=== PATIENT | male | born 1940 | race Caucasian/White ===

== ENCOUNTER → 2016-10-05 | Outpatient (CLI) | payer OTHER | LOC: MMPC 11:11 | PROVIDERS: ATTEND Nurse Practitioner | DX: J44.9 Chronic obstructive pulmonary disease, unspecified (principal); R53.83 Other fatigue; R63.4 Abnormal weight loss; K13.79 Other lesions of oral mucosa; I25.5 Ischemic cardiomyopathy | CPT/HCPCS: 99214 ==

== ENCOUNTER → 2016-10-11 | Outpatient (CLI) | payer OTHER ==
--- NOTE | 2016-10-11 12:58 | DI ---
PA /LATERAL CHEST X-RAY, 10/11/2016 11:26 AM : Clinical History: End-stage chronic obstructive pulmonary disease. Previous Exam: 02/04/2015. There is no acute soft tissue or bony abnormality, but the patient has lost weight since the previous exam and appears quite cachectic. Heart size is normal. The patient has a dual-chamber pacemaker and leads are in the appropriate position. A vascular stent is present in the territory of the LAD. Sinc e the previous exam, the patient has developed complete atelectasis of the basilar segments of the le ft lower lobe and probable atelectasis of the lingular segment, and with compensatory hyperinflation of the left upper lobe. There is a new patchy infiltrate in the left midlung field posteriorly and bi laterally and this may represent a pneumonia involving the superior segment of the left lower lobe. T here is also atelectasis of the right upper lobe primarily in the area of the posterior segment and p ossibly also the apex. There is compensatory hyperinflation of the right lower lobe and right middle lobe. Pleural scarring has developed at the site of the right upper lobe atelectasis. There is pulmon radha arterial hypertension. Septae are present in the left upper lobe and this patient has bullae. Readin. Bullous emphysema with atelectasis of the basilar segments of the left lower lobe with probable p neumonia involving the superior segment of the left lower lobe. There is compensatory hyperinflation of the left upper lobe with evidence of bullae. 2. The patient has developed right upper lobe atelectasis with pleural scarring laterally in the upp er lung field. There is compensatory hyperinflation of the right middle lobe and right lower lobe. 3. Pulmonary arterial hypertension and coronary artery disease. There is marked cachexia.
== END ==
LOC: RAD 11:19
PROVIDERS: ATTEND Nurse Practitioner
DX: J44.9 Chronic obstructive pulmonary disease, unspecified (principal); R06.00 Dyspnea, unspecified; I27.2 Other secondary pulmonary hypertension; I25.10 Atherosclerotic heart disease of native coronary artery without angina pectoris; F17.210 Nicotine dependence, cigarettes, uncomplicated
CPT/HCPCS: 71020

== ENCOUNTER 2016-10-28 23:00 | Inpatient (IN) | payer OTHER ==
--- NOTE | 2016-10-28 23:10 | PDOC ---
Gen Adult / Medical Screen HPI - General Chief Complaint: General Medical Stated Complaint: low SPO2 Date Seen by Provider: 10/28/16 Time Seen by Provider: 23:10 Source: POSITIVE: Patient, EMS Exam Limitations: POSITIVE: No limitations Nurse's Notes Reviewed & Considered: Yes - Indicators Temperature Between 95 and 101 Degrees: Yes Respirations Between 12 and 20: No (28) Blood Pressure Between 100-165 (sys) and 60-100 (evans): No (91/59) Severe Pain (Greater than 5/10 Reported): No Chest or Abdominal Pain: Yes (pain associated with pacer on L chest.) Inability to Walk: Yes (weak and unsteady) Pt Reports Active High Risk Cond. (TB/Hepatitis/HIV/Chemo): No Abnormal Mental Status: No - History of Present Illness Initial Comments: Patient called for EMS because of not feeling well and short of breath. The ambulance arrived and his oxygenation to be 67%, baseline oxygen is 4 L, and he was started on nonrebreather when EMS arrived. EMS states they found him to be tripoding in order to move air. He is complaining of left-sided abdominal pain and left-sided chest pain predominantly the chest pain is located under his pacemaker. He's been coughing for approximately 2 weeks with blood-tinged sputum. He was found to be febrile with a temperature of 99.2. He was tachycardic and tachypneic with hypotension. Presently his tachycardia has resolved. Patient is unable to speak in full sentences. Body Location Affected: REPORTS: Chest Timing: REPORTS: Constant, Getting Worse Duration: Unknown Similar Symptoms Previously: Yes Any Prior Injuries Related to Current Complaint?: No - Patient Home Medications Home Medications: Home Medications Aspirin 650 mg PO DAILY #60 tablet 01/13/15 Lidocaine HCl [Lidocaine Hcl Viscous] 15 ml PO QID PRN #100 ml 08/06/15 Albuterol Sulfate 2.5 mg [facility] RTQID #120 vial.neb 08/18/16 Amiodarone HCl [Pacerone] 200 mg PO DAILY #30 tablet 08/18/16 Atorvastatin Calcium [Lipitor] 40 mg PO BEDTIME #30 tablet 08/18/16 Escitalopram Oxalate [Lexapro] 10 mg PO EVERY AM #30 tablet 08/18/16 Fluticasone Propionate [Flonase Allergy Relief] 2 spr ARAVIND QD #1 spr 08/18/16 Fluticasone/Vilanterol [Breo Ellipta 200-25 Mcg Inh] 1 each IH QD #1 inhaler Losartan Potassium 0.5 tab PO QD #45 tab 08/18/16 Pantoprazole Sodium [Protonix] 40 mg PO BID #60 tablet 08/18/16 Tamsulosin HCl [Flomax] 0.4 mg PO DAILY #30 cap 08/18/16 Tiotropium [place] [Spiriva] 18 mcg INH RTDAILY #30 inhaler 08/18/16 Doxycycline Monohydrate 1 cap PO BID #14 cap 10/12/16 predniSONE Tab [Deltasone Tab] 2 tab PO DAILY #5 tab 10/12/16 Tramadol HCl 1 tab PO Q4H PRN #90 tab 10/28/16 - Patient Allergies Allergies/Adverse Reactions: Allergies Allergy/AdvReac Type Severity Reaction Status Date / Time Penicillins Allergy RASH Verified 10/29/16 00:36 Past Medical History - heen HEENT History: Denies History Additional HEENT History: ORAL THRUSH Cardiovascular History: Previous PR, Pacemaker, Internal Defibrillator Additional Cardiovasular History: 6-7 YR AGO AND 20 YR AGO Respiratory History: COPD, Shortness of Breath Additional Respiratory History: HOME O2 @ 4L/MIN PER NC Gastrointestinal History: Denies History Genitourinary History: Denies History Endocrine History: Denies History Musculoskeletal History: Other (please comment) Prosthesis or Implant: No Additional Musculoskeletal History: LEFT SHOULDER SURGERY Neurological History: Denies History Blood Disorders: Denies History Psychiatric History: Substance Abuse History of Sexually Transmitted Diseases: No Cancer History: Denies History History of MDRO: No History of Other Communicable Diseases: No Alcohol Use: Sober Substance Use Type: None Previous Surgical History: Yes Type / Date of Surgery: cardiac stents Anesthesia Reactions: No Malignant Hyperthermia: No Significant Family History: No pertinent family hx ROS - Limitations ROS Limitations: Clinical Condition Constitution: REPORTS: Chills, Fever, Weakness Cardiovascular: REPORTS: Chest Pain Respiratory: REPORTS: Cough Productive, Hurts To Breathe, Shortness Of Breath, Wheezing Neurological: REPORTS: Weakness Gastrointestinal: REPORTS: Abdominal Pain (Left-sided abdominal pain.) Endocrine: REPORTS: Denies Symptoms Musculoskeletal: REPORTS: Denies MS Symptoms Genitourinary: REPORTS: Denies Symptoms Eyes: REPORTS: Denies Symptoms ENT: REPORTS: Denies Symptoms Skin: REPORTS: Denies Skin Symptoms Lympathic: REPORTS: Denies Lympathic Symptoms Immunologic: POSITIVE: Denies Symptoms Psychiatric: POSITIVE: Denies Psych Symptoms Gen Adult/Medical Screen Exam - General Appearance General Appearance: POSITIVE: Alert, Cooperative, Anxious, Moderate Distress, Other (This is a thin cachectic appearing 76-year-old male who is laboring to breathe with tachypnea and anxiety.) - HEENT HEENT: POSITIVE: Head Inspection Nml, Eyes Inspection Nml, Ears Inspection Nml, Nose Inspection Nml, PERRL, EOMI - Pupils Pupil Size: 4 mm: Bilateral - Neck Neck: POSITIVE: Normal Inspection, Thyroid Normal - Respiratory Respiratory: POSITIVE: Wheezes, Rales, Other (Patient is tender over the left chest in the vicinity of his pacemaker) - Cardiovascular Cardiovascular: POSITIVE: Regular Rate & Rhythm, No Murmur, No Gallop, PMI Normal Peripheral Pulses: Radial (R): 3+, Radial (L): 3+ - Abdomen Abdomen: Soft: (All Quadrants), Normal Bowel Sounds: (All Quadrants), Tenderness Noted: (LUQ), (RUQ) (left greater than right upper quadrant) - Back Back: POSITIVE: Normal Inspection - Neurological / Psychological Mental Status: POSITIVE: Other (Anxiety) Orientation: POSITIVE: Oriented x 3 - Skin Skin: POSITIVE: Normal Color, Warm, Dry, No Rash - Extremities Extremity: Non-Tender: (All Extremities), Normal ROM: (All Extremities), Normal Inspection: (All Extremities) Gen Adlt/Medical Scrn Progress - Results Reviewed by me Xrays/CTs/US Reviewed by me: Yes Discussed with Radiologist: Yes Lab Results Reviewed: Yes Lab Results:: Laboratory Results 10/28/16 Range/Units 23:20 WBC 9.36 (4.8-10.8) 10^3/uL RBC 3.71 L (4.70-6.10) 10^6/uL Hgb 10.8 L (14.0-18.0) g/dL Hct 33.8 L (42.0-52.0) % MCV 91.1 H (80-90) FL MCH 29.1 (27-31) PG MCHC 32.0 L (33-37) g/dL RDW Std Deviation 62.1 H (39-50) fL RDW Coeff of [place]rence 19.2 H (11.5-14.5) % Plt Count 208 (140-350) 10*3/uL MPV 9.8 (7.4-12.2) FL Immature Gran % (Auto) 0.1 (0-5) % Neut % (Auto) 83.3 H (50-80) % Lymph % (Auto) 6.8 L (10-50) % [place] % (Auto) 9.5 (5-15) % Eos % (Auto) 0.1 (0-8) % Baso % (Auto) 0.2 (0-1) % Immature Gran # (Auto) 0.01 10*3/UL Neut # (Auto) 7.79 10*3/UL Lymph # (Auto) 0.64 10*3/uL [place] # (Auto) 0.89 H (0.3-0.8) 10*3/UL Eos # (Auto) 0.01 10*3/UL Baso # (Auto) 0.02 10*3/UL WBC Morphology Comment Normal morphology (NORM) Plt Morphology Comment Normal morphology (NORM) RBC Morph Comment Normal morphology (NORM) D-Dimer 4.78 H (0.00-0.59) mg/L Sodium 136 (135-145) meq/L Potassium 4.4 (3.8-5.2) meq/L Chloride 99 (98-112) meq/L Carbon Dioxide 28 (23-33) meq/L Anion Gap 9 (5-20) BUN 19 (7-22) mg/dL Creatinine 0.8 (0.70-1.50) mg/dL Estimated GFR (>60 ml/min/1.73m(2)) BUN/Creatinine Ratio 23.75 H (6-20) Glucose 123 H (78-110) mg/dL Calculated Osmolality 284.0 (267-292) mOsm/kg Lactic Acid 1.3 (0.70-2.10) MMOL/L Calcium 9.1 (8.7-10.7) mg/dL Total Bilirubin 0.6 (0.3-1.2) mg/dL AST 25 (21-57) IU/L ALT 16 L (21-72) IU/L Alkaline Phosphatase 93 (38-126) IU/L Troponin I < 0.012 (< 0.040) ng/mL Total Protein 7.9 (6.1-8.0) g/dL Albumin 3.3 L (3.5-4.8) g/dL Globulin 4.6 H (2.50-4.10) g/dL Albumin/Globulin Ratio 0.70 L (1.3-2.0) mg/g EKG Interpretation:: POSITIVE: Normal Sinus Rhythm - Patient's Progress Pain Medication Addressed: POSITIVE: Not Applicable Re-Examine Time: 02:58 Status: POSITIVE: Improved MDM / ED Course: The patient comes in today with hypoxia he was examined, IV started and blood drawn, blood was sent to lab for studies, x-ray and CT scan of his chest were obtained. He received DuoNeb updraft, and Zofran. Patient also received IV Rocephin, dexamethasone, and oral azithromycin. He did improve and felt better with his oxygen saturations improving. His oxygen would drop precipitously with any movement. Findings: CT scan shows no PE present, he has a right upper lobe pleural-based consolidation with associated scarring and atelectasis patchy left base consolidation, thickening ocular loss associated with chronic bronchitis and reactive airway disease. Assessment: Acute on chronic COPD exacerbation with chronic bronchitis. Plan: Admission. Patient Care Time - Estimated PCT Patient Care Time (In Minutes): 45 Vital Signs - Recent Vital Signs Vital Signs: Vital Signs (Last 8 hours) Temp Pulse Resp BP Pulse Ox 10/28/16 23:05 99.2 F 75 28 H 91/59 83 - VS Reviewed Vital Signs Reviewed: Yes Discharge Clinical Impression: Chronic obstructive pulmonary disease with acute exacerbation Discharge Disposition: Admit to Observation Condition: Stable Date Decision to Admit to Inpatient: 10/29/16 Time Decision to Admit to Inpatient: 03:09
[2016-10-28] MEDS ORDERED: Sodium Chloride 0.9% 1,000 ML PRIMARY IV ONE (23:11)
[2016-10-28] MEDS ORDERED: IPRATROPIUM/ALBUTEROL SULFATE 3 ML NEB NEB ONE ×2 (23:11→23:38)
[2016-10-28] MEDS ORDERED: DEXAMETHASONE PF 10 MG/1 ML VIAL IVP ONE (23:11)
[2016-10-28 23:32] LABS: BASOPHILS # (AUTO) 0.02 10*3/UL; BASOPHILS % (AUTO) 0.2 % (0-1); EOSINOPHILS % (AUTO) 0.1 % (0-8); HEMATOCRIT 33.8 % (42.0-52.0); HEMOGLOBIN 10.8 g/dL (14.0-18.0); IMM GRAN % (AUTO) 0.1 % (0-5); IMM GRAN# (AUTO) 0.01 10*3/UL; LYMPHOCYTES # (AUTO) 0.64 10*3/uL; LYMPHOCYTES % (AUTO) 6.8 % (10-50); MEAN CORPUSCULAR HEMOGLOBIN 29.1 PG (27-31); MEAN PLATELET VOLUME 9.8 FL (7.4-12.2); MONOCYTES # (AUTO) 0.89 10*3/UL (0.3-0.8); MONOCYTES % (AUTO) 9.5 % (5-15); NEUTROPHILS # (AUTO) 7.79 10*3/UL; NEUTROPHILS % (AUTO) 83.3 % (50-80); RDW COEFFICIENT OF VARIATION 19.2 % (11.5-14.5); RED BLOOD COUNT 3.71 10^6/uL (4.70-6.10); WHITE BLOOD COUNT 9.36 10^3/uL (4.8-10.8)
[2016-10-28 23:36] LABS: PLATELET MORPHOLOGY COMMENT NORMAL MORPHOLOGY (NORM)
[2016-10-28] MEDS ORDERED: DEXAMETHASONE PF 10 MG/1 ML VIAL ONE (23:38)
[2016-10-28] MEDS ORDERED: Sodium Chloride 0.9% 0 ML ONE (23:38)
[2016-10-28 23:43] LABS: BILIRUBIN,TOTAL 0.6 mg/dL (0.3-1.2); BUN/CREATININE RATIO 23.75 (6-20); CALCIUM 9.1 mg/dL (8.7-10.7); CREATININE 0.8 mg/dL (0.70-1.50); LACTATE 1.3 MMOL/L (0.70-2.10); POTASSIUM 4.4 meq/L (3.8-5.2); TOTAL PROTEIN 7.9 g/dL (6.1-8.0)
[2016-10-29] MEDS ORDERED: cefTRIAXone Inj 2 GM in Sodium Chloride 0.9% 100 ML IV ONE (01:34)
[2016-10-29] MEDS ORDERED: AZITHROMYCIN 250 MG TABLET PO ONE ×2 (01:34→02:05)
[2016-10-29] MEDS ORDERED: CEFTRIAXONE SODIUM 2 GM VIAL IV ONE (02:05)
[2016-10-29] MEDS ORDERED: Sodium Chloride 0.9% 100 ML IV ONE (02:05)
--- NOTE | 2016-10-29 02:39 | DI ---
HISTORY: Hypoxia. COMPARISON: 12/26/2014. FINDINGS: A single portable frontal view of the chest is submitted. There is a two lead left chest cardiac device with wire tips projecting in the distribution of the right atrium and right ventricle. The lungs are hyperinflated, a finding associated with obstructive pulmonary physiology. The left hemidiaphragm is elevated, a finding associated with left lung volume loss. There is right mid later al pleural based consolidation with associated scarring. There is patchy left lung base opacity. Th ere is a moderate-sized left pleural effusion. There is no pneumothorax. The patient is status post median sternotomy. Heart size is at the upper limits of normal without significant pulmonary edema. Atheromatous calcifications are present in the arch of a tortuous aorta. Degenerative changes of t he AC joints and spine are noted. IMPRESSION: 1. The lungs are hyperinflated, a finding associated with obstructive pulmonary physiology. The left hemidiaphragm is elevated, a finding associated with left lung volume loss. 2. There is right mid lateral pleural based consolidation with associated scarring. There is patchy l eft lung base opacity. Follow-up to resolution is recommended. 3. There is a moderate-sized left pleural effusion. NOTIFICATION: The above findings were phoned to Cricket Prajapati in the ER Department on 10/29/2016 at 04:5 4 AM EST.
--- NOTE | 2016-10-29 02:50 | DI ---
HISTORY: Shortness of breath with elevated d-dimer. COMPARISON: 12/26/2014. TECHNIQUE: Contiguous axial images of the chest were obtained and submitted for interpretation. FINDINGS: No main or segmental pulmonary emboli. Severe emphysematous changes are noted bilaterally . There is lateral right upper lobe pleural based consolidation with associated scarring and atelect asis. There is patchy left lung base consolidation. There is a small to moderate-sized left pleural effusion. There is no pneumothorax. Airways are patent with no endobronchial lesion. There is dif fuse bronchial wall thickening, a finding associated with chronic bronchitis and reactive airways dis ease. No evidence of great vessel injury, dissection, or aneurysm. The patient is status post media n sternotomy. Heart size is at the upper limits of normal with mild pericardial thickening versus fl uid. Atheromatous calcifications are present in the aorta and coronary vessels. There are multiple shotty mediastinal lymph nodes, not pathologically enlarged by CT size criteria. Calcified mediastin al lymph node is noted. The thyroid exhibits normal CT morphology. Limited evaluation of the upper abdomen reveals coarse calcification in the right lobe of the liver. No acute osseous abnormality or aggressive osseous lesion. Remote left posterior eighth through ten th rib fractures are noted. There is multilevel degenerative disc disease. The patient is cachectic. IMPRESSION: 1. No main or segmental pulmonary emboli. 2. Severe emphysematous changes are noted bilaterally. 3. There is lateral right upper lobe pleural based consolidation with associated scarring and atelect asis. There is patchy left lung base consolidation. Follow-up to resolution is recommended if no pr ior imaging is available for comparison. 4. There is a small to moderate-sized left pleural effusion. 5. Diffuse bronchial wall thickening, a finding associated with chronic bronchitis and reactive airwa ys disease. 6. Heart size is at the upper limits of normal with mild pericardial thickening versus fluid. 7. Evidence of coarse calcification in the right lobe of the liver. Dedicated imaging is recommended if no priors are available for comparison. NOTIFICATION: The above findings were phoned to Cricket Prajapati in the ER Department on 10/29/2016 at 04:5 4 AM EST.
--- NOTE | 2016-10-29 03:45 | EKG ---
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
[2016-10-29] MEDS ORDERED: ONDANSETRON 4 MG/2 ML VIAL IVP PRN (03:57)
[2016-10-29] MEDS ORDERED: CALCIUM CARBONATE 500 MG (TUMS) CHEWABLE TABLET PO PRN (03:57)
[2016-10-29] MEDS ORDERED: FUROSEMIDE 10 MG/1 ML - 4 ML IVP ONE (03:57)
[2016-10-29] MEDS ORDERED: FLUTICASONE IH SCH (03:57)
[2016-10-29] MEDS ORDERED: VILANTEROL IH SCH (03:57)
[2016-10-29] MEDS: ALBUTEROL SULFATE 2.5 MG/3 ML NEB SCH ×4 (06:26→18:41)
[2016-10-29] MEDS: TIOTROPIUM BROMIDE 18 MCG CAPSULE INH SCH (06:30)
[2016-10-29] MEDS: ESCITALOPRAM 10 MG TABLET PO SCH (07:35)
[2016-10-29] MEDS: ENOXAPARIN SODIUM 40 MG/0.4 ML SYRINGE SUBCUT SCH (08:17)
[2016-10-29] MEDS: predniSONE Tab 20 MG TAB PO SCH (08:18)
[2016-10-29] MEDS: AMIODARONE 200 MG TABLET PO SCH (08:18)
[2016-10-29] MEDS: ASPIRIN 325 MG TABLET PO SCH (08:18)
[2016-10-29] MEDS: TAMSULOSIN 0.4 MG CAPSULE PO SCH (08:18)
[2016-10-29] MEDS: LOSARTAN 25 MG TABLET PO SCH (08:19)
[2016-10-29] MEDS: PANTOPRAZOLE 40 MG TABLET PO SCH ×2 (08:19→20:48)
[2016-10-29] MEDS: traMADol 50 MG TABLET PO PRN ×2 (08:22→20:58)
[2016-10-29] MEDS: VILANTEROL IH SCH (08:46)
[2016-10-29] MEDS: FLUTICASONE IH SCH (08:46)
[2016-10-29] MEDS ORDERED: PHENOL/SODIUM PHENOLATE 177 ML SPRAY PO PRN (12:45)
[2016-10-29] MEDS ORDERED: Lidocaine Inj 1% 20 ML ONE (15:11)
[2016-10-29] MEDS: NORMAL SALINE 10 ML SYRINGE FLUSH IVP PRN ×2 (15:38→22:51)
[2016-10-29] MEDS: cefTRIAXone Inj 2 GM in Sodium Chloride 0.9% 100 ML IV SCH (15:38)
--- NOTE | 2016-10-29 16:04 | PDOC ---
History and Physical - History of Present Illness Date and Time of Service: 10/29/2016, 1605 Chief Complaint: Shortness of breath History of Present Illness: This very pleasant but debilitated 76-year-old man with underlying COPD, coronary artery disease, and 13-calorie malnutrition. He comes in stating that he's had shortness of breath that is progressively getting worse, accompanied with a 20-30, weight loss in the last 6 months. He denies any fever or cough. He states that his shortness breath is gotten so bad that he cannot walk more than 10 feet without stopping to rest. He is normally on oxygen and states that that has not been helping and breathing therapies at home have not been helping. CT scan of the chest was done and I spoke to radiology and he has a left sided spiculated mass. He has small pleural effusion bilaterally, and we placed an ultrasound to quantify the fluid on the left side, and there was only about 9 mL of fluid calculated. He has what looks like an infiltrate as well on the CT scan. Given all this, the patient was admitted and placed on antibiotics directed towards committee acquired pneumonia. His vaccine status is not known and he states that he quit smoking 4 months ago although he still has secondhand smoke exposure. On my review of his history and medical record, he recently had treatment for pneumonia with his primary care provider. The patient collaborates that history as well. Past Medical History Medical History: 1. COPD, end-stage, 2 L per nasal cannula. 2. Coronary artery disease with depressed ejection fraction, status post stents in the past none recent. 3. Cardiomyopathy status post AICD placement, he states that shocked him a couple months back. 4. Frequent headaches. 5. Tobacco abuse, but quit 4 months ago. 6. History of alcohol abuse, patient states he's not had anything to drink since prior to 2013. 7. Ventricular arrhythmias for which the patient is on amiodarone and has an AICD placed. 8. Amyloidosis. 9. Weight loss, 20-30 pounds per history in the last 6 months. 10. Depression, on Lexapro. Surgical History: 1. Right partial index finger amputation. 2. AICD placement. 3. Cardiac stents Pertinent Family History: Mother in 90s, and father in a car wreck. No other major medical issues in the family per the patient Past Social History: Smokes, used to drink, had a life partner of 25 years. Retired and lives in [place]. Tobacco Use: Former Smoker Substance Use Type: None Alcohol Use: None Medication / Allergies Home Medications: Home Medications Medication Instructions Recorded Confirmed Type Aspirin 650 mg PO DAILY #60 tablet 01/13/15 10/29/16 Rx Lidocaine HCl [Lidocaine Hcl 15 ml PO QID PRN #100 ml 08/06/15 10/29/16 [facility]] Albuterol Sulfate 2.5 mg [facility] RTQID #120 vial.neb 08/18/16 10/29/16 [facility] Amiodarone HCl [Pacerone] 200 mg PO DAILY #30 tablet 08/18/16 10/29/16 Clinic Atorvastatin Calcium [Lipitor] 40 mg PO BEDTIME #30 tablet 08/18/16 10/29/16 Clinic Escitalopram Oxalate [Lexapro] 10 mg PO EVERY AM #30 tablet 08/18/16 10/29/16 Clinic Fluticasone Propionate [Flonase 2 spr ARAVIND QD #1 spr 08/18/16 10/29/16 Clinic Allergy Relief] Fluticasone/Vilanterol [Breo 1 each IH QD #1 inhaler 08/18/16 10/29/16 Clinic Ellipta 200-25 Mcg Inh] Losartan Potassium 0.5 tab PO QD #45 tab 08/18/16 10/29/16 Clinic Pantoprazole Sodium [Protonix] 40 mg PO BID #60 tablet 08/18/16 10/29/16 Clinic Tamsulosin HCl [Flomax] 0.4 mg PO DAILY #30 cap 08/18/16 10/29/16 Clinic Tiotropium [place] [Spiriva] 18 mcg INH RTDAILY #30 inhaler 08/18/16 10/29/16 Clinic Doxycycline Monohydrate 1 cap PO BID #14 cap 10/12/16 10/29/16 Clinic predniSONE Tab [Deltasone Tab] 2 tab PO DAILY #5 tab 10/12/16 10/29/16 Clinic Tramadol HCl 1 tab PO Q4H PRN #90 tab 10/28/16 10/29/16 Clinic Allergies/Adverse Reactions: Allergies Allergy/AdvReac Type Severity Reaction Status Date / Time Penicillins Allergy RASH Verified 10/29/16 09:26 Review of Systems - Constitutional Constitutional: REPORTS: General Health Poor, Weight Loss - Integumentary Integumentary: DENIES: Negative System Review, Rash, Superficial Wound, Laceration, Puncture Wound, Foreign Body, Itching, Dryness, Ulcers, Color Changes, Moles, Hair Loss, Hirsutism, Other, See HPI - Mouth/Throat Mouth/Throat Exam: REPORTS: Dental Problems (Has dentures. Does not have his lower dentures currently) - Respiratory Respiratory: REPORTS: Dyspnea At Rest, Dyspnea with Exertion, Hemoptysis ( States he had hemoptysis about a month ago that resolved.), See HPI - Cardiovascular Cardiovascular: REPORTS: Negative System Review - Gastrointestinal Gastrointestinal / Abdominal: REPORTS: Negative System Review - Genitourinary Genitourinary: REPORTS: Hesitant Stream, Decreased Stream, Nocutria - Musculoskeletal Musculoskeletal: REPORTS: Back Pain - Hematlogic / Lymphatic Hematologic / Lymphatic: REPORTS: Easy Bleeding/Bruising - Neurological Neurologic: DENIES: Negative System Review, Headache, Numbness/Paresthesia, Tremors, Weakness, Seizures, Head Trauma, LOC, Dizziness, Confusion, Memory Loss , Difficulty Walking, Incoordination, Other, See HPI - Psychiatric Psychiatric: REPORTS: Depressed Exam - Vitals Vital Signs: Vital Signs Temperature 97.9 F Temperature Source Temporal Artery Scan Pulse Rate [Apical] 78 Pulse Rate [Pulse Oximeter] 78 Pulse Rate 75 Respiratory Rate 20 Blood Pressure [Right Arm] 91/54 Blood Pressure 93/71 Pulse Ox 88 Oxygen Flow Rate 5 Oxygen Delivery Method Nasal Cannula Height 5 ft 8 in Weight 114 lb 3.2 oz - General General Appearance: POSITIVE: No Acute Distress, Cooperative, Thin - Head Head Exam: POSITIVE: Normocephalic, Atraumatic Additional Head Exam Details: Temporal wasting consistent with pulmonary cachexia - Eye Eye Exam: POSITIVE: No Scleral Icterus - ENT ENT Exam: POSITIVE: Mucous Membranes Dry - Neck Neck Exam: POSITIVE: Normal Inspection, No Tenderness, No Thyromegaly - Respiratory Respiratory Exam: POSITIVE: Breathing Non Labored, Decreased Breath Sounds, Coarse Breath Sounds (In the bases bilaterally.), Dull to Percussion - Cardiovascular Cardiovascular Exam: POSITIVE: RRR, No Murmur, No Clicks, No Gallops, No JVD - GI/Abdominal GI/Abdominal Exam: POSITIVE: Normal Bowel Sounds, Non Tender, Non Distended, Soft - Rectal Rectal Exam: POSITIVE: Deferred - External Exam: POSITIVE: Deferred Exam: POSITIVE: Deferred - Extremities Extremities Exam: POSITIVE: No Edema Present, No Cyanosis Present, Clubbing Present - Back Back Exam: POSITIVE: No CVA Tenderness - Neurological Neurological Exam: POSITIVE: Alert, Oriented x 3, No Facial Droop, Speech Intact / Clear, Moves All Extremities Equally - Psychiatric Psychiatric Exam: POSITIVE: Anxious, Depressed - Integumentary Integumentary Exam: POSITIVE: Warm, Dry, Intact Results - Labs CBC and BMP: 10/28/16 23:20 10/28/16 23:20 Labs - Last 24 Hours: Laboratory Results 10/28/16 10/28/16 10/29/16 Range/Units 23:20 23:49 00:00 WBC 9.36 (4.8-10.8) 10^3/uL RBC 3.71 L (4.70-6.10) 10^6/uL Hgb 10.8 L (14.0-18.0) g/dL Hct 33.8 L (42.0-52.0) % MCV 91.1 H (80-90) FL MCH 29.1 (27-31) PG MCHC 32.0 L (33-37) g/dL RDW Std Deviation 62.1 H (39-50) fL RDW Coeff of Clarence 19.2 H (11.5-14.5) % Plt Count 208 (140-350) 10*3/uL MPV 9.8 (7.4-12.2) FL Immature Gran % (Auto) 0.1 (0-5) % Neut % (Auto) 83.3 H (50-80) % Lymph % (Auto) 6.8 L (10-50) % [place] % (Auto) 9.5 (5-15) % Eos % (Auto) 0.1 (0-8) % Baso % (Auto) 0.2 (0-1) % Immature Gran # (Auto) 0.01 10*3/UL Neut # (Auto) 7.79 10*3/UL Lymph # (Auto) 0.64 10*3/uL [place] # (Auto) 0.89 H (0.3-0.8) 10*3/UL Eos # (Auto) 0.01 10*3/UL Baso # (Auto) 0.02 10*3/UL WBC Morphology Comment Normal morphology (NORM) Plt Morphology Comment Normal morphology (NORM) RBC Morph Comment Normal morphology (NORM) D-Dimer 4.78 H (0.00-0.59) mg/L VBG pH 7.37 (7.32-7.42) VBG pCO2 46 (45-55) mmHg VBG HCO3 27 H (22-26) mmol/L VBG Base Excess 1 (-2-2) MMOL/L Sodium 136 (135-145) meq/L Potassium 4.4 (3.8-5.2) meq/L Chloride 99 (98-112) meq/L Carbon Dioxide 28 (23-33) meq/L Anion Gap 9 (5-20) BUN 19 (7-22) mg/dL Creatinine 0.8 (0.70-1.50) mg/dL Estimated GFR (>60 ml/min/1.73m(2)) BUN/Creatinine Ratio 23.75 H (6-20) Glucose 123 H (78-110) mg/dL Calculated Osmolality 284.0 (267-292) mOsm/kg Lactic Acid 1.3 (0.70-2.10) MMOL/L Calcium 9.1 (8.7-10.7) mg/dL Total Bilirubin 0.6 (0.3-1.2) mg/dL AST 25 (21-57) IU/L ALT 16 L (21-72) IU/L Alkaline Phosphatase 93 (38-126) IU/L Troponin I < 0.012 (< 0.040) ng/mL NT-Pro-B Natriuret Pep 1940 H (0-125) PG/ML Total Protein 7.9 (6.1-8.0) g/dL Albumin 3.3 L (3.5-4.8) g/dL Globulin 4.6 H (2.50-4.10) g/dL Albumin/Globulin Ratio 0.70 L (1.3-2.0) mg/g - EKG Data -: EKG Interpreted by Me - EKG Data EKG Interpretation: Other (EKG shows a paced rhythm on my view.) - Imaging Status: Image Reviewed by Me (I looked at the chest x-ray and the CT scan. I discussed them with radiology on-call today. On the chest x-ray, I think it's consistent with COPD and possible left-sided pneumonia. Possible pleural effusion, although it's difficult to tell with the lucency in the left lower lobe. The CT scan shows bilateral pleural effusions or thickening and possible pneumonia in the left side. I spoke with the radiologist about the CT scan as well and it appears that there may be a left spiculated mass in the upper lung on the left side. We did bedside ultrasound imaging for possible thoracentesis , but only found about 9 mL on volume measured by ultrasound and I do not think that was enough for me to proceed with a thoracentesis safely versus the risks of the procedure.) Assessment and Plan - Patient Problems (1) Postobstructive pneumonia Current Visit: Yes Status: Acute (2) COPD exacerbation Current Visit: Yes Status: Acute (3) Mass in chest Current Visit: Yes Status: Acute (4) Failure to thrive in adult Current Visit: Yes Status: Acute (5) Protein calorie malnutrition Current Visit: Yes Status: Acute (6) Cachexia Current Visit: Yes Status: Acute - Assessment / Plan Additional Assessment/Plan Details: Admit the patient. Rocephin. Zithromax and Rocephin were given in the emergency room but at this time I think we can safely stop Zithromax. Vaccination if possible, but my real concern is this spiculated mass on the left chest. Patient did have some complaints of dizziness when he stands up in the shower, and given his weight loss of about 14-18 pounds that I can document since December 2014, along with his symptoms and findings on CT scan, I'm concerned about potential lung cancer with metastatic lesions. He has an AICD in place and we cannot do an MRI scan but I'll order a CT of the head with contrast and without contrast. Breathing therapies. Steroids. We explored the thought of doing a thoracentesis. However when looking with ultrasound, there was only about 8-9 mL of fluid. This is too low for me to tap with a thoracentesis without exposing the patient to bigger risks. Discussed CODE STATUS, this patient would not survive CPR with compressions. He states he is DO NOT RESUSCITATE. We'll try to discuss the CT scan with pulmonology in [place]. I don't know if this would be amenable to biopsy by CT or possible bronchoscopy. Either way, the patient may need arrangements to have that done in [place] or elsewhere. The patient is adamant that he is going to go home tomorrow, despite any recommendations I might make. So our course of action here may be limited on the patient's desire to go back home. I explained to him that I think he could have a lung cancer, and I think that workup would give him options for either determining treatment or considering palliative care if this is the case. He has been treated for recent lung infection, within the last month, and this was on an outpatient basis. Doubt MRSA pneumonia. I will add doxycycline onto the Rocephin as well. Overall, the patient understood that he has attention risks of debilitating and life-threatening diseases such as lung cancer, but he still is adamant that he is going to go home tomorrow.
[2016-10-29] MEDS ORDERED: DOXYCYCLINE HYCLATE 100 MG CAPSULE PO ONE (16:25)
--- NOTE | 2016-10-29 16:26 | DI ---
HISTORY: Dizziness and possible lung cancer. Questionable metastasis. TECHNIQUE: Multiple CT images through the brain without contrast were obtained and submitted for int erpretation. FINDINGS: There is diffuse age-related volume loss. There is a large area of encephalomalacia invol ving he right temporoparietal lobe most consistent with a prior ischemic event. There is no abnormal enhancement. IMPRESSION: 1. 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 2. No evidence of metastatic disease.
[2016-10-29] MEDS: methylPREDNISolone 125 MG/2 ML VIAL IVP SCH ×2 (17:05→22:51)
[2016-10-29] MEDS ORDERED: PNEUMOCOCCAL 23 VACCINE 25 MCG/0.5 ML VIAL IM SCH (19:00)
[2016-10-29] MEDS: ATORVASTATIN 40 MG TABLET PO SCH (20:48)
[2016-10-29] MEDS: DOXYCYCLINE HYCLATE 100 MG CAPSULE PO SCH (20:48)
[2016-10-30] MEDS: methylPREDNISolone 125 MG/2 ML VIAL IVP SCH ×3 (05:16→17:11)
[2016-10-30] MEDS: NORMAL SALINE 10 ML SYRINGE FLUSH IVP PRN ×2 (05:16→17:11)
[2016-10-30 06:16] LABS: BASOPHILS # (AUTO) 0 10*3/UL; BASOPHILS % (AUTO) 0 % (0-1); EOSINOPHILS % (AUTO) 0 % (0-8); HEMATOCRIT 31.9 % (42.0-52.0); HEMOGLOBIN 10.2 g/dL (14.0-18.0); IMM GRAN % (AUTO) 0.2 % (0-5); IMM GRAN# (AUTO) 0.02 10*3/UL; LYMPHOCYTES # (AUTO) 0.38 10*3/uL; LYMPHOCYTES % (AUTO) 3.1 % (10-50); MEAN CORPUSCULAR HEMOGLOBIN 28.7 PG (27-31); MEAN PLATELET VOLUME 10.3 FL (7.4-12.2); MONOCYTES # (AUTO) 0.27 10*3/UL (0.3-0.8); MONOCYTES % (AUTO) 2.2 % (5-15); NEUTROPHILS # (AUTO) 11.71 10*3/UL; NEUTROPHILS % (AUTO) 94.5 % (50-80); RDW COEFFICIENT OF VARIATION 19.1 % (11.5-14.5); RED BLOOD COUNT 3.55 10^6/uL (4.70-6.10); WHITE BLOOD COUNT 12.38 10^3/uL (4.8-10.8)
[2016-10-30] MEDS: ALBUTEROL SULFATE 2.5 MG/3 ML NEB SCH ×4 (06:23→18:35)
[2016-10-30] MEDS: TIOTROPIUM BROMIDE 18 MCG CAPSULE INH SCH (06:25)
[2016-10-30 06:29] LABS: CALCIUM 9.2 mg/dL (8.7-10.7); CREATININE 0.7 mg/dL (0.70-1.50); POTASSIUM 4.3 meq/L (3.8-5.2)
[2016-10-30 07:13] LABS: PLATELET MORPHOLOGY COMMENT NORMAL MORPHOLOGY (NORM)
[2016-10-30] MEDS: ENOXAPARIN SODIUM 40 MG/0.4 ML SYRINGE SUBCUT SCH (09:44)
[2016-10-30] MEDS: ESCITALOPRAM 10 MG TABLET PO SCH (09:44)
[2016-10-30] MEDS: ASPIRIN 325 MG TABLET PO SCH (09:45)
[2016-10-30] MEDS: traMADol 50 MG TABLET PO PRN ×2 (09:45→21:43)
[2016-10-30] MEDS: LOSARTAN 25 MG TABLET PO SCH (09:45)
[2016-10-30] MEDS: AMIODARONE 200 MG TABLET PO SCH (09:45)
[2016-10-30] MEDS: DOXYCYCLINE HYCLATE 100 MG CAPSULE PO SCH ×2 (09:45→21:43)
[2016-10-30] MEDS: TAMSULOSIN 0.4 MG CAPSULE PO SCH (09:46)
[2016-10-30] MEDS: PANTOPRAZOLE 40 MG TABLET PO SCH ×2 (09:46→21:43)
[2016-10-30] MEDS: FLUTICASONE IH SCH (09:47)
[2016-10-30] MEDS: VILANTEROL IH SCH (09:47)
[2016-10-30] MEDS: predniSONE Tab 20 MG TAB PO SCH (11:00)
[2016-10-30] MEDS: ACETAMINOPHEN 325 MG TABLET PO PRN (13:30)
[2016-10-30] MEDS: cefTRIAXone Inj 2 GM in Sodium Chloride 0.9% 100 ML IV SCH (14:35)
--- NOTE | 2016-10-30 17:45 | PDOC(PROG) ---
Date and Time of Service: 10/30/2016, 1740 Interval History: No chest pain. Been more sleepy today. Desaturates quite quickly if he has to ambulate to the bathroom. Daughter is present at bedside today. Patient is still asking to go home but not nearly as aggressive with that questioning today. He seems weaker. Objective : Data - Labs CBC and BMP: 10/30/16 06:09 10/30/16 06:09 Labs - Last 24 Hours: Laboratory Results 10/30/16 Range/Units 06:09 WBC 12.38 H (4.8-10.8) 10^3/uL RBC 3.55 L (4.70-6.10) 10^6/uL Hgb 10.2 L (14.0-18.0) g/dL Hct 31.9 L (42.0-52.0) % MCV 89.9 (80-90) FL MCH 28.7 (27-31) PG MCHC 32.0 L (33-37) g/dL RDW Std Deviation 61.2 H (39-50) fL RDW Coeff of Clarence 19.1 H (11.5-14.5) % Plt Count 221 (140-350) 10*3/uL MPV 10.3 (7.4-12.2) FL Immature Gran % (Auto) 0.2 (0-5) % Neut % (Auto) 94.5 H (50-80) % Lymph % (Auto) 3.1 L (10-50) % [place] % (Auto) 2.2 L (5-15) % Eos % (Auto) 0 (0-8) % Baso % (Auto) 0 (0-1) % Immature Gran # (Auto) 0.02 10*3/UL Neut # (Auto) 11.71 10*3/UL Lymph # (Auto) 0.38 10*3/uL [place] # (Auto) 0.27 L (0.3-0.8) 10*3/UL Eos # (Auto) 0 10*3/UL Baso # (Auto) 0 10*3/UL WBC Morphology Comment Normal morphology (NORM) Plt Morphology Comment Normal morphology (NORM) RBC Morph Comment Normal morphology (NORM) Sodium 138 (135-145) meq/L Potassium 4.3 (3.8-5.2) meq/L Chloride 99 (98-112) meq/L Carbon Dioxide 29 (23-33) meq/L Anion Gap 10 (5-20) BUN 28 H (7-22) mg/dL Creatinine 0.7 (0.70-1.50) mg/dL Estimated GFR (>60 ml/min/1.73m(2)) BUN/Creatinine Ratio 40.00 H (6-20) Glucose 137 H (78-110) mg/dL Calculated Osmolality 293.0 H (267-292) mOsm/kg Calcium 9.2 (8.7-10.7) mg/dL Objective : Exam - General General Appearance: No Acute Distress, Cooperative, Thin Additional General Exam Details: Vital Signs - Last Taken Temperature 97.3 F 10/30/16 16:39 Pulse Rate 75 10/30/16 16:39 Respiratory Rate 16 10/30/16 16:39 Blood Pressure 109/59 10/30/16 16:39 Pulse Ox 88 10/30/16 16:39 On nasal cannula oxygen. - Head Head Exam: Normocephalic, Atraumatic - Eye Eye Exam: No Scleral Icterus - Respiratory Respiratory Exam: Breathing Non Labored, Decreased Breath Sounds, Coarse Breath Sounds - Cardiovascular Cardiovascular Exam: RRR, No Clicks, No Gallops, No Rubs, Systolic Murmur, JVD - GI/Abdominal GI/Abdominal Exam: Normal Bowel Sounds, Non Tender, Non Distended, Soft - Extremities Extremities Exam: No Edema Present, No Cyanosis Present, Clubbing Present - Neurological Neurological Exam: Alert, Oriented x 3, No Facial Droop, Speech Intact / Clear, Moves All Extremities Equally Assessment and Plan - Patient Problems (1) Postobstructive pneumonia Current Visit: Yes Status: Acute Comment: Atria therapy, continue antibiotics of Rocephin and monitor. Patient will need oxygen. Breathing therapies. (2) COPD exacerbation Current Visit: Yes Status: Acute Comment: In addition to antibiotics, have the patient on steroids. (3) Mass in chest Current Visit: Yes Status: Acute Comment: I discussed with pulmonology today in [place]. There is a spiculated mass that is somewhat suspicious in the left upper lobe, but it is in a position that will make it very difficult to biopsy and it was the feeling that it would probably result in a pneumothorax if we did that was CT-guided biopsy. The suggestion was to treat the patient's pneumonia, and wait about 6 weeks, and then proceed with a PET scan. We can try to make arrangements with oncology for an outpatient visit. Ultimately, I think the patient is too weak and too debilitated to be a good candidate for lung cancer treatment. (4) Failure to thrive in adult Current Visit: Yes Status: Acute (5) Protein calorie malnutrition Current Visit: Yes Status: Acute Comment: He has lost a significant amount of weight so I will put in for a nutrition consult (6) Cachexia Current Visit: Yes Status: Acute - Assessment / Plan Additional Assessment/Plan Details: As above.
[2016-10-30] MEDS: Sodium Chloride 0.9% 1,000 ML PRIMARY IV SCH (18:01)
[2016-10-30] MEDS: ATORVASTATIN 40 MG TABLET PO SCH (21:45)
[2016-10-31] MEDS: methylPREDNISolone 125 MG/2 ML VIAL IVP SCH ×4 (00:30→19:56)
[2016-10-31] MEDS: NORMAL SALINE 10 ML SYRINGE FLUSH IVP PRN ×2 (00:30→04:33)
[2016-10-31] MEDS: Sodium Chloride 0.9% 1,000 ML PRIMARY IV SCH ×2 (02:16→10:00)
--- NOTE | 2016-10-31 04:23 | DI ---
ULTRASOUND LOCALIZATION FOR THORACENTESIS, 10/29/2016 1:36 PM Clinical History: Pleural effusion. Previous Exam: None at this facility. A "time out" session was performed to verify the patient's name and date of prior to initiatin g this procedure. The thorax was scanned from the posterior approach with the patient sitting upr ight. The optimal location for thoracentesis was identified and the skin was marked with indelible i nk. Because of the low volume of fluid, Dr. Kike Alvarado decided not to perform the thoracentesis. Reading: Localization of optimal site for thoracentesis as above. The amount of pleural effusion is small and therefore the procedure was terminated.
[2016-10-31] MEDS: ESCITALOPRAM 10 MG TABLET PO SCH (06:35)
[2016-10-31 06:40] LABS: BASOPHILS # (AUTO) 0 10*3/UL; BASOPHILS % (AUTO) 0 % (0-1); EOSINOPHILS % (AUTO) 0 % (0-8); HEMATOCRIT 30.9 % (42.0-52.0); HEMOGLOBIN 9.8 g/dL (14.0-18.0); IMM GRAN % (AUTO) 0.2 % (0-5); IMM GRAN# (AUTO) 0.03 10*3/UL; LYMPHOCYTES # (AUTO) 0.35 10*3/uL; LYMPHOCYTES % (AUTO) 2.4 % (10-50); MEAN CORPUSCULAR HEMOGLOBIN 28.7 PG (27-31); MEAN CORPUSCULAR HGB CONC 31.7 g/dL (33-37); MEAN PLATELET VOLUME 10.1 FL (7.4-12.2); MONOCYTES # (AUTO) 0.28 10*3/UL (0.3-0.8); MONOCYTES % (AUTO) 1.9 % (5-15); NEUTROPHILS # (AUTO) 14.04 10*3/UL; NEUTROPHILS % (AUTO) 95.5 % (50-80); RDW COEFFICIENT OF VARIATION 19.4 % (11.5-14.5); RED BLOOD COUNT 3.42 10^6/uL (4.70-6.10)
[2016-10-31 06:43] LABS: BUN/CREATININE RATIO 42.85 (6-20); CALCIUM 8.6 mg/dL (8.7-10.7); CREATININE 0.7 mg/dL (0.70-1.50); POTASSIUM 4.6 meq/L (3.8-5.2)
[2016-10-31 06:51] LABS: PLATELET MORPHOLOGY COMMENT NORMAL MORPHOLOGY (NORM)
[2016-10-31] MEDS: ALBUTEROL SULFATE 2.5 MG/3 ML NEB SCH ×4 (07:05→18:39)
[2016-10-31] MEDS: TIOTROPIUM BROMIDE 18 MCG CAPSULE INH SCH (07:13)
[2016-10-31] MEDS: PANTOPRAZOLE 40 MG TABLET PO SCH ×2 (08:22→19:59)
[2016-10-31] MEDS: DOXYCYCLINE HYCLATE 100 MG CAPSULE PO SCH ×2 (08:22→20:01)
[2016-10-31] MEDS: AMIODARONE 200 MG TABLET PO SCH (08:22)
[2016-10-31] MEDS: ENOXAPARIN SODIUM 40 MG/0.4 ML SYRINGE SUBCUT SCH (08:22)
[2016-10-31] MEDS: ASPIRIN 325 MG TABLET PO SCH (08:22)
[2016-10-31] MEDS: predniSONE Tab 20 MG TAB PO SCH (08:22)
[2016-10-31] MEDS: traMADol 50 MG TABLET PO PRN ×2 (08:23→19:58)
[2016-10-31] MEDS: TAMSULOSIN 0.4 MG CAPSULE PO SCH (08:23)
[2016-10-31] MEDS: VILANTEROL IH SCH (08:23)
[2016-10-31] MEDS: FLUTICASONE IH SCH (08:23)
--- NOTE | 2016-10-31 11:24 | PDOC(PROG) ---
Date and Time of Service: 10/31/2016 11:20 AM Interval History: Subjective Patient came into the hospital with history of feeling weak, short of breath and generalized pain and body aches. Was found to have pneumonia and COPD exacerbation secondary to that. He said he is feeling better compared to yesterday. He still though on higher oxygen than usual. But his appetite is better his breathing is somewhat better. No body aches. Objective : Data - Labs CBC and BMP: 10/31/16 06:24 10/31/16 06:24 Labs - Last 24 Hours: Laboratory Results 10/30/16 10/31/16 Range/Units 18:00 06:24 WBC 14.70 H (4.8-10.8) 10^3/uL RBC 3.42 L (4.70-6.10) 10^6/uL Hgb 9.8 L (14.0-18.0) g/dL Hct 30.9 L (42.0-52.0) % MCV 90.4 H (80-90) FL MCH 28.7 (27-31) PG MCHC 31.7 L (33-37) g/dL RDW Std Deviation 62.5 H (39-50) fL RDW Coeff of Clarence 19.4 H (11.5-14.5) % Plt Count 225 (140-350) 10*3/uL MPV 10.1 (7.4-12.2) FL Immature Gran % (Auto) 0.2 (0-5) % Neut % (Auto) 95.5 H (50-80) % Lymph % (Auto) 2.4 L (10-50) % [place] % (Auto) 1.9 L (5-15) % Eos % (Auto) 0 (0-8) % Baso % (Auto) 0 (0-1) % Immature Gran # (Auto) 0.03 10*3/UL Neut # (Auto) 14.04 10*3/UL Lymph # (Auto) 0.35 10*3/uL [place] # (Auto) 0.28 L (0.3-0.8) 10*3/UL Eos # (Auto) 0 10*3/UL Baso # (Auto) 0 10*3/UL WBC Morphology Comment Normal morphology (NORM) Plt Morphology Comment Normal morphology (NORM) RBC Morph Comment Normal morphology (NORM) Sodium 137 (135-145) meq/L Potassium 4.6 (3.8-5.2) meq/L Chloride 103 (98-112) meq/L Carbon Dioxide 28 (23-33) meq/L Anion Gap 6 (5-20) BUN 30 H (7-22) mg/dL Creatinine 0.7 (0.70-1.50) mg/dL Estimated GFR (>60 ml/min/1.73m(2)) BUN/Creatinine Ratio 42.85 H (6-20) Glucose 132 H (78-110) mg/dL Calculated Osmolality 291.0 (267-292) mOsm/kg Lactic Acid 3.0 H (0.70-2.10) MMOL/L Calcium 8.6 L (8.7-10.7) mg/dL Objective : Exam - General General Appearance: No Acute Distress, Cooperative, Thin - Head Head Exam: Normal Inspection - Eye Eye Exam: Normal Appearance - ENT ENT Exam: Normal Exam - Neck Neck Exam: Normal Inspection - Respiratory Additional Respiratory Exam Details: Very poor air entry but otherwise clear - Cardiovascular Cardiovascular Exam: RRR - GI/Abdominal GI/Abdominal Exam: Normal Bowel Sounds, Non Tender, Non Distended, Soft - Rectal Rectal Exam: Deferred - External Exam: Deferred - Extremities Extremities Exam: Normal Inspection - Back Back Exam: Normal Inspection - Neurological Neurological Exam: Alert, Oriented x 3, CN II-XII Intact, Moves All Extremities Equally - Psychiatric Psychiatric Exam: Normal Affect Assessment and Plan - Patient Problems (1) Pneumonia Current Visit: No Status: Acute Comment: He is on antibiotics continue. (2) COPD with acute exacerbation Current Visit: Yes Status: Acute Comment: He is on IVs steroid and on oral steroid. In addition to breathing treatment. We'll start cutting back on the IV steroid, will check with his pharmacy whether he takes oral steroid as he is not sure. (3) Mass in chest Current Visit: Yes Status: Acute Comment: There is a mass in the left the upper lung this need follow-up with oncology for PET scan. (4) DVT prophylaxis Current Visit: No Status: Acute Comment: He is on Lovenox continue (5) Hypercholesterolemia Current Visit: Yes Status: Acute Comment: Same medications (6) History of coronary artery disease Current Visit: No Status: Acute Comment: He is on aspirin, Lipitor continue. Blood pressure was borderline yesterday and the losartan was withheld. He is on IV fluid, I think we can stop it.
[2016-10-31] MEDS ORDERED: Senna Tab 8.6 MG TAB PO PRN (11:33)
[2016-10-31] MEDS: DOCUSATE 100 MG CAPSULE PO PRN ×2 (12:18→19:59)
[2016-10-31] MEDS: cefTRIAXone Inj 2 GM in Sodium Chloride 0.9% 100 ML IV SCH (14:49)
[2016-10-31] MEDS: ATORVASTATIN 40 MG TABLET PO SCH (19:59)
[2016-11-01] MEDS: methylPREDNISolone 125 MG/2 ML VIAL IVP SCH ×3 (04:16→21:27)
[2016-11-01] MEDS: NORMAL SALINE 10 ML SYRINGE FLUSH IVP PRN ×3 (04:17→21:35)
[2016-11-01] MEDS: TIOTROPIUM BROMIDE 18 MCG CAPSULE INH SCH (06:49)
[2016-11-01] MEDS: ALBUTEROL SULFATE 2.5 MG/3 ML NEB SCH ×4 (06:49→19:02)
[2016-11-01] MEDS: ESCITALOPRAM 10 MG TABLET PO SCH (06:57)
[2016-11-01 07:09] LABS: BILIRUBIN,TOTAL 0.2 mg/dL (0.3-1.2); BUN/CREATININE RATIO 41.42 (6-20); CALCIUM 8.6 mg/dL (8.7-10.7); CREATININE 0.7 mg/dL (0.70-1.50); TOTAL PROTEIN 6.5 g/dL (6.1-8.0)
[2016-11-01 07:21] LABS: POTASSIUM 4.4 meq/L (3.8-5.2)
[2016-11-01] MEDS: ENOXAPARIN SODIUM 40 MG/0.4 ML SYRINGE SUBCUT SCH (08:51)
[2016-11-01] MEDS: PANTOPRAZOLE 40 MG TABLET PO SCH ×2 (08:52→21:31)
[2016-11-01] MEDS: AMIODARONE 200 MG TABLET PO SCH (08:52)
[2016-11-01] MEDS: predniSONE Tab 20 MG TAB PO SCH (08:52)
[2016-11-01] MEDS: ASPIRIN 325 MG TABLET PO SCH (08:52)
[2016-11-01] MEDS: TAMSULOSIN 0.4 MG CAPSULE PO SCH (08:52)
[2016-11-01] MEDS: DOXYCYCLINE HYCLATE 100 MG CAPSULE PO SCH ×2 (08:52→21:31)
--- NOTE | 2016-11-01 09:07 | PDOC(PROG) ---
Date and Time of Service: 11/01/2016 9:03 AM Interval History: Subjective Patient may be a little bit better compared to yesterday. He said earlier he felt little bit dizzy but not now. He is denying chest pain. His breathing is always short according to him. He doesn't do much at home. He goes out with a friend for shopping. He gets Meals on Wheels. Objective : Data - Labs CBC and BMP: 10/31/16 06:24 11/01/16 06:35 Labs - Last 24 Hours: Laboratory Results 11/01/16 Range/Units 06:35 Sodium 138 (135-145) meq/L Potassium 4.4 (3.8-5.2) meq/L Chloride 102 (98-112) meq/L Carbon Dioxide 28 (23-33) meq/L Anion Gap 8 (5-20) BUN 29 H (7-22) mg/dL Creatinine 0.7 (0.70-1.50) mg/dL Estimated GFR (>60 ml/min/1.73m(2)) BUN/Creatinine Ratio 41.42 H (6-20) Glucose 118 H (78-110) mg/dL Calculated Osmolality 292.0 (267-292) mOsm/kg Calcium 8.6 L (8.7-10.7) mg/dL Total Bilirubin 0.2 L (0.3-1.2) mg/dL AST 23 (21-57) IU/L ALT 25 (21-72) IU/L Alkaline Phosphatase 78 (38-126) IU/L Total Protein 6.5 (6.1-8.0) g/dL Albumin 2.7 L (3.5-4.8) g/dL Globulin 3.8 (2.50-4.10) g/dL Albumin/Globulin Ratio 0.70 L (1.3-2.0) mg/g Objective : Exam - General General Appearance: No Acute Distress, Cooperative, Thin - Head Head Exam: Normal Inspection - Eye Eye Exam: Normal Appearance - ENT ENT Exam: Normal Exam - Neck Neck Exam: Normal Inspection - Respiratory Additional Respiratory Exam Details: Decreased air entry otherwise clear - Cardiovascular Cardiovascular Exam: RRR - GI/Abdominal GI/Abdominal Exam: Normal Bowel Sounds, Non Tender, Non Distended, Soft - Rectal Rectal Exam: Deferred - External Exam: Deferred - Extremities Extremities Exam: Normal Inspection - Back Back Exam: Normal Inspection - Neurological Neurological Exam: Alert, Oriented x 3, CN II-XII Intact - Psychiatric Psychiatric Exam: Normal Affect Assessment and Plan - Patient Problems (1) Pneumonia Current Visit: No Status: Acute Comment: Continue current antibiotics. (2) COPD with acute exacerbation Current Visit: Yes Status: Acute Comment: Continue steroid will start cutting back more on the IV steroid. I spoke with the pharmacy to check about the prednisone dosage that he was on. Continue Spiriva. Will put him on Advair. He is weak last PT and OT to work with him. Although he may be limited because of his advanced COPD (3) Mass in chest Current Visit: Yes Status: Acute Comment: This need follow-up later on as an outpatient (4) DVT prophylaxis Current Visit: No Status: Acute Comment: He is on Lovenox (5) Hypercholesterolemia Current Visit: Yes Status: Acute Comment: Same med (6) History of coronary artery disease Current Visit: No Status: Acute Comment: He is on aspirin and Lipitor. We've held the losartan because his blood pressure is borderline. He said his blood pressure is on the low side.
[2016-11-01] MEDS: cefTRIAXone Inj 2 GM in Sodium Chloride 0.9% 100 ML IV SCH (15:05)
--- NOTE | 2016-11-01 16:44 | PT.PROG ---
Progress Note Progress Note: S: Pt reports he is feeling a little tired at the beginning of today's session secondary to participating in OT session prior to PT. Pt stated he was ready and willing to participate in PT this afternoon. O: Pt performed Nustep x 3 min. O2 sats monitored throughout exercise bout. PT stopped pt while on Nustep secondary to O2 sats dropping to 84. PT allowed pt time to recover and increase O2 sat level. Pt performed STS x 5. Pt ambulated x 50 ft w/ verbal cueing and CGA for safety. Pt placed back in bed and supplemental O2 set at 5 L. O2 sats monitored throughout this afternoon's entire session. A: Pt demonstrated fluctuations in O2 sat levels throughout entire session, ranging between 80-94. PT made sure pt was above 90 prior to starting each exercise bout. Pt states he felt good following treatment and was glad to get out of bed and move. Continues to require skilled PT to improve strength and endurance. P: Continue to see pt 2x/day to improve strength and endurance prior to discharge. Soham Wade, SPT
--- NOTE | 2016-11-01 17:12 | OT.PROG ---
Progress Note Progress Note: S: pt was in good spirits when entering his room. He stated he has not been walking very far. O: pt was seen in his room and was in supine position. He completed bed mobility Ind and completed LE dressing Ind. He completed functional transfer apprx 175 ft with CGA for safety. His o2 dropped to 75-80 on 6 liters. He was brought the rest of way in w/c and completed 4 min on UE bike to increase his activity tolerance. He then completed exercises with 2lb ball in shoulder flex , RTB in shoulder ext, HOr abd all x15 all bilaterally to increase strength to assist with transfers. A: pt participate well and activity tolerance was more than what pt thought as he demonstrated increase ambulation. Continue to progress. P: continue per plan of care.
[2016-11-01] MEDS: FLUTICASONE/SALMETEROL 250/50 UD INHALER INH SCH (19:02)
[2016-11-01] MEDS: traMADol 50 MG TABLET PO PRN (21:31)
[2016-11-01] MEDS: ATORVASTATIN 40 MG TABLET PO SCH (21:31)
[2016-11-02] MEDS: methylPREDNISolone 125 MG/2 ML VIAL IVP SCH ×2 (04:21→17:46)
[2016-11-02] MEDS: NORMAL SALINE 10 ML SYRINGE FLUSH IVP PRN ×3 (04:22→17:46)
[2016-11-02] MEDS: ALBUTEROL SULFATE 2.5 MG/3 ML NEB SCH ×4 (07:01→18:56)
[2016-11-02] MEDS: FLUTICASONE/SALMETEROL 250/50 UD INHALER INH SCH ×2 (07:02→18:58)
[2016-11-02] MEDS: TIOTROPIUM BROMIDE 18 MCG CAPSULE INH SCH (07:02)
[2016-11-02] MEDS: ESCITALOPRAM 10 MG TABLET PO SCH (07:17)
[2016-11-02] MEDS: DOXYCYCLINE HYCLATE 100 MG CAPSULE PO SCH ×2 (08:00→20:17)
[2016-11-02] MEDS: ASPIRIN 325 MG TABLET PO SCH (08:00)
[2016-11-02] MEDS: AMIODARONE 200 MG TABLET PO SCH (08:01)
[2016-11-02] MEDS: ENOXAPARIN SODIUM 40 MG/0.4 ML SYRINGE SUBCUT SCH (08:01)
[2016-11-02] MEDS: predniSONE Tab 20 MG TAB PO SCH (08:01)
[2016-11-02] MEDS: TAMSULOSIN 0.4 MG CAPSULE PO SCH (08:01)
[2016-11-02] MEDS: PANTOPRAZOLE 40 MG TABLET PO SCH ×2 (08:01→20:17)
--- NOTE | 2016-11-02 11:24 | PDOC(PROG) ---
Date and Time of Service: 11/02/2016 11:21 AM Interval History: Subjective He said he's feeling better, no chest pain, shortness of breath maybe a little bit better still worse though with exertion. But he said he is doing more with physical therapy now than compared to yesterday. Cough seems to be improved. Objective : Data - Labs CBC and BMP: 10/31/16 06:24 11/01/16 06:35 Objective : Exam - General General Appearance: No Acute Distress, Cooperative - Head Head Exam: Normal Inspection - Eye Eye Exam: Normal Appearance - ENT ENT Exam: Normal Exam - Neck Neck Exam: Normal Inspection - Respiratory Additional Respiratory Exam Details: Very poor air entry otherwise clear - Cardiovascular Cardiovascular Exam: RRR - GI/Abdominal GI/Abdominal Exam: Normal Bowel Sounds, Non Tender, Non Distended, Soft - Rectal Rectal Exam: Deferred - External Exam: Deferred - Extremities Extremities Exam: Normal Inspection - Back Back Exam: Normal Inspection - Neurological Neurological Exam: Alert, Oriented x 3, CN II-XII Intact, Speech Intact / Clear , Moves All Extremities Equally - Psychiatric Psychiatric Exam: Normal Affect Assessment and Plan - Patient Problems (1) Pneumonia Current Visit: No Status: Acute Comment: Continue current antibiotics. I think we'll cut back more on the IV steroid. (2) COPD with acute exacerbation Current Visit: Yes Status: Acute Comment: Continue bronchodilator, antibiotics and steroid. We'll cut back on the IV steroid. After checking with the pharmacy apparently he was on 40 mg a day of prednisone but looking at the notes after I reviewed it from the clinic apparently this was only for a short period of time. I think we'll try to take him off the IV and continue with the oral steroid. (3) Mass in chest Current Visit: Yes Status: Acute Comment: This need follow-up later on as an outpatient (4) DVT prophylaxis Current Visit: No Status: Acute Comment: Continue Lovenox (5) Hypercholesterolemia Current Visit: Yes Status: Acute Comment: Same med (6) History of coronary artery disease Current Visit: No Status: Acute Comment: Continue previous medication continue holding the losartan.
--- NOTE | 2016-11-02 11:29 | PTI REPORT ---
Thank you for the referral of Maverick Olson. He was seen on 11/01/16 for an inpatient evaluation secondary to weakness. SUBJECTIVE: The patient is a 76-year-old male demonstrating global weakness throughout. He states he is doing much better today than he was yesterday. The patient states he has a pacemaker and has been on supplemental oxygen for two years now. 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 He states in his off time he likes to watch TV and drive his golf cart. The patient currently ambulates with a four wheeled walker as well as a cane at home. The patient lives with his technical illustrations map inker who is blind and uses a wheelchair for ambulation. The patient states his technical illustrations map inker still cooks. The patient has an aide that helps with ADLs. The patient lives in a double-wide, handicap accessible trailer with a ramp. He states his bathroom is handicap accessible with shower chair, guard rails, and grab bar on toilet. The patient's primary goal is to get back home. PAST MEDICAL HISTORY: Past medical history can be found in the patient's medical record. OBJECTIVE FINDINGS: Pain: The patient rates his pain as an 8/10 on the verbal analog scale (0=no pain, 10=worst pain); however, he states his pain is much better today than it was yesterday. Strength: The patient demonstrated generalized weakness in all planes today with manual muscle test scores with no one side being any weaker or stronger than the other side. Bed mobility: The patient performed supine to sit transfer independently. Transfers: The patient performed sit to stand transfer using upper extremity support and requiring supervision throughout. The patient was able to maintain standing with supervision x1 minute. Oxygen: The patient's oxygen saturation was monitored throughout today's initial evaluation. The patient demonstrated a drop in oxygen saturation initially with movement. Oxygen was bumped from 5 liters to 6 liters with exercise. Ambulation: The patient was able to ambulate approximately 20 feet from bed to sink and back with contact guard assist, supervision, and verbal cueing. The patient ambulated without an assistive device during today's session; however, he states he does use a walker and sometimes a cane at home. Balance: The therapist took the patient through the Vidal balance scale during today's evaluation. The patient scored 32/56. ASSESSMENT: Problem List: Decreased ambulation Generalized weakness Instability Decreased balance with standing and ambulation Increased pain Short-Term Goals: To be met by discharge from inpatient: Patient will demonstrate ability to perform sit to stand transfer independently with appropriate assistive device. Patient will demonstrate ability to ambulate up to 50 feet with appropriate assistive device for in home ambulation. Long-Term Goals: To be met following discharge from inpatient: Patient will be independent in all ADLs including cleaning, laundry, and cooking. Patient will demonstrate ability to ambulate up to 300 feet with appropriate assistive device independently for community ambulation purposes. TREATMENT PLAN: Patient will be seen B.I.D during the week and one time per day over the weekend as an inpatient to address the above goals and objectives. INITIAL TREATMENT: Treatment today consisted of the initial evaluation activities only. Dictated by: IMAN Diego Supervised by: TERESA Mcdonald
[2016-11-02] MEDS: cefTRIAXone Inj 2 GM in Sodium Chloride 0.9% 100 ML IV SCH (14:25)
--- NOTE | 2016-11-02 15:36 | OTI REPORT ---
Thank you for the referral of Maverick Olson. He was seen on 11/01/16 for an occupational therapy inpatient evaluation secondary to weakness. 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 Radiology reports indicate that there is a mass. The patient does have a pacemaker and ICD placement. He does have significant weakness and O2 levels seem to change quickly with activity greater than 30 seconds. The patient appears to be an accurate historian. He lives in [place] and is retired. 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 The patient currently drives but has difficulty doing that due to decreased oxygen and the fact that he gets fatigued fairly quickly. The patient lives with a apartment groundskeeper who is legally blind; however, he states that she does the cooking and cleaning. They do have an aide coming in the home, so he does have some support there. He states that they live in a double wide mobile home that is handicap accessible with a ramp into the entry. It sounds like their bathroom is adapted as well; he has a walk in shower with grab bars. He does have a four wheeled walker at home. It doesn't sound like the patient does a lot at home as far as activity levels are concerned. PAST MEDICAL HISTORY: Past medical history can be found in the patient's medical record. OBJECTIVE FINDINGS: Activities of daily living: Grooming: The patient requires min assist to contact guard. His level of assistance increases with back to back activity and routines. Toileting: The patient requires min assist to contact guard assist with use of grab bar. The patient needs help adjusting his garments because his balance is decreased. Toilet transfer: The patient requires min assist with use of a grab bar. Bathing: Not tested. Tub/shower transfer right now would be mod assist as the patient has a lot of difficulty moving his legs up against gravity due to weakness. Upper body dressing: The patient is able to perform upper body dressing with set up. Lower body dressing: The patient is able to perform lower body dressing with min assist, steadying the patient due to balance deficits and the patient fatiguing fairly quickly. Oxygen: The patient is currently on five liters of oxygen. Oxygen saturation was 82% with activity greater than 30 seconds. Range of motion: Passive range of motion is greater than active range of motion due to strength deficits in the upper extremities. Strength: Bilateral upper extremity strength is 3-/5. Endurance: The patient fatigues with greater than 30 seconds of continuous activity. ASSESSMENT: Problem List: Decreased balance Decreased mobility Decreased safety Decreased ability to perform transfers Compromised activity tolerance/endurance Decreased strength Education will be required to staff and his apartment groundskeeper for discharge planning Short-Term Goals: To be met by discharge from inpatient: Patient will be able to complete basic ADLs to include upper and lower body dressing with supervision to modified independence with use of adaptive equipment. Patient will be able to complete toilet transfer and shower transfer with stand by assistance to modified independence with use of adaptive equipment. Patient will increase overall activity tolerance and upper body endurance to greater than 4 minutes of sustained activity without dropping below 90% with his oxygen saturation or demonstrating loss of balance or shortness of breath. Long-Term Goals: To be met following discharge from inpatient: Patient will be able to complete basic activities of daily living and functional transfers with stand by assistance to modified independence with adaptive equipment as necessary. TREATMENT PLAN: Patient will be seen B.I.D during the week and one time per day over the weekend as an inpatient to address the above goals and objectives. INITIAL TREATMENT: Treatment today consisted of the initial evaluation activities only. FELI
--- NOTE | 2016-11-02 16:42 | PT.PROG ---
Progress Note Progress Note: S. Patient stated that he is tired this morning, He agreed to go to the therapy gym however. O. Patient ambulated 175 feet to the gym where he worked with OT then ambulated 175 feet back to his room where he was left in bed with alarm and call light. A. Patient was unable to perform more exercise after working with OT due to oxygen saturation. Patient continues to require short seated rest breaks during ambulation to recover his breath. Patient would continue to benefit from skilled therapy at this time. P. Continue POC.
--- NOTE | 2016-11-02 16:51 | PT.PROG ---
Progress Note Progress Note: S. Patient stated that he is feeling better this afternoon, and agreed to go to the therapy gym. O. Patient ambulated 175 feet to the therapy gym where he performed nu-step x 5 minutes, then seated marches, long arc quads and sit to stands all x 5 bilaterally. Patient was left with OT for further therapy. A. Patient tolerated exercise well, he continues to require frequent rest breaks to recover his breath, he stated his left shoulder was hurting during nu- step exercise. Patient would continue to benefit from skilled therapy at this time. P. continue POC.
[2016-11-02] MEDS: ATORVASTATIN 40 MG TABLET PO SCH (20:17)
[2016-11-02] MEDS: traMADol 50 MG TABLET PO PRN (20:17)
[2016-11-03] MEDS: methylPREDNISolone 125 MG/2 ML VIAL IVP SCH (04:50)
[2016-11-03] MEDS: NORMAL SALINE 10 ML SYRINGE FLUSH IVP PRN (04:50)
[2016-11-03] MEDS: ESCITALOPRAM 10 MG TABLET PO SCH (06:58)
[2016-11-03] MEDS: ALBUTEROL SULFATE 2.5 MG/3 ML NEB SCH ×4 (07:07→18:59)
[2016-11-03] MEDS: TIOTROPIUM BROMIDE 18 MCG CAPSULE INH SCH (07:08)
[2016-11-03] MEDS: FLUTICASONE/SALMETEROL 250/50 UD INHALER INH SCH ×2 (07:08→18:58)
[2016-11-03] MEDS: TAMSULOSIN 0.4 MG CAPSULE PO SCH (09:08)
[2016-11-03] MEDS: ENOXAPARIN SODIUM 40 MG/0.4 ML SYRINGE SUBCUT SCH (09:08)
[2016-11-03] MEDS: predniSONE Tab 20 MG TAB PO SCH ×3 (09:09→21:05)
[2016-11-03] MEDS: AMIODARONE 200 MG TABLET PO SCH (09:09)
[2016-11-03] MEDS: ASPIRIN 325 MG TABLET PO SCH (09:09)
[2016-11-03] MEDS: DOXYCYCLINE HYCLATE 100 MG CAPSULE PO SCH ×2 (09:09→21:04)
[2016-11-03] MEDS: PANTOPRAZOLE 40 MG TABLET PO SCH ×2 (09:09→21:05)
--- NOTE | 2016-11-03 10:06 | PDOC(PROG) ---
Date and Time of Service: 11/03/2016 10 AM Interval History: Subjective Patient continued to feel some improvement compared to yesterday. He said he had probably 50% improvement compared to when he came in. Still short of breath when he walks but he is doing more with physical therapy. Objective : Data - Labs CBC and BMP: 10/31/16 06:24 11/01/16 06:35 Objective : Exam - General General Appearance: No Acute Distress, Cooperative, Thin - Head Head Exam: Normal Inspection, Atraumatic - Eye Eye Exam: Normal Appearance - ENT ENT Exam: Normal Exam - Neck Neck Exam: Normal Inspection - Respiratory Additional Respiratory Exam Details: Decreased air entry otherwise clear - Cardiovascular Cardiovascular Exam: RRR - GI/Abdominal GI/Abdominal Exam: Normal Bowel Sounds, Non Tender, Non Distended, Soft - Rectal Rectal Exam: Deferred - External Exam: Deferred - Extremities Extremities Exam: Normal Inspection - Back Back Exam: Normal Inspection - Neurological Neurological Exam: Alert, Oriented x 3, CN II-XII Intact, Moves All Extremities Equally - Psychiatric Psychiatric Exam: Normal Affect Assessment and Plan - Patient Problems (1) Pneumonia Current Visit: No Status: Acute Comment: Continue current antibiotics I think will probably look at discharge home tomorrow. (2) COPD with acute exacerbation Current Visit: Yes Status: Acute Comment: Continue bronchodilator and steroid but will switche to by mouth steroid continue antibiotics (3) Mass in chest Current Visit: Yes Status: Acute Comment: This need follow-up later on as an outpatient with the oncology probably need a PET scan (4) DVT prophylaxis Current Visit: No Status: Acute Comment: Continue Lovenox (5) Hypercholesterolemia Current Visit: Yes Status: Acute Comment: Same medication (6) History of coronary artery disease Current Visit: No Status: Acute Comment: Same med continue holding the losartan
--- NOTE | 2016-11-03 12:15 | PT.PROG ---
Progress Note Progress Note: S. Patient stated that he is a little tired this morning. O. Patient performed exercises in the form of; long arc quads, marches and box step ups #2 box all with 2# weights x 15 bilaterally. Nu-step x 4 minutes. Patient ambulated 175 feet back to his room where he was left in bed with alarm and call light. A. Patient tolerated exercises well. he is very good about knowing when to rest and how to monitor his oxygen saturation. Patient would continue to benefit from skilled therapy to increase strength and endurance. P Continue POC.
--- NOTE | 2016-11-03 12:16 | OT.PROG ---
Progress Note Progress Note: S: pt stated he wanted to finish reading the paper and wanted to talk to Dr before going to therapy. O: pt was seen in his room, late morning after he visited with Dr. pt completed transfer downstairs with CGA while pt pushed w/c for support. Once arrived downstairs he completed 4 min on UE bike to increase activity tolerance. He did need time to recover and allow o2 to increase. He completed transfer to mat table and completed exercises with RTB in shoulder ext/flex, bicep flex, rows and Hor abd x15 all BUE to increase strength. Pt also completed dynamic balance activity for up to 5 min to work on core strength to enhance balance. pt was returned to his room and left in supine position in bed and call light within reach and o2 returned to 85. A: pt would continue to benefit from therapy to increase activity tolerance. P: continue per plan of care.
[2016-11-03] MEDS: cefTRIAXone Inj 2 GM in Sodium Chloride 0.9% 100 ML IV SCH (14:11)
[2016-11-03] MEDS: ACETAMINOPHEN 325 MG TABLET PO PRN (14:11)
--- NOTE | 2016-11-03 16:27 | OT.PROG ---
Progress Note Progress Note: S: pt stated he feels rather good and is hoping to return home tomorrow. O: pt participated in UE bike to increase activity tolerance. After this he transferred to mat table. After checking o2 and feeling well he completed obstacles including x3 hurdles and x1 airex. He completed this x1 with one hand assist and x3 Ind. He then participated in balance activity on airex while passing ball back and forth. He completed this with no assistance to maintain balance. A: pt would continue to benefit from therapy to increase activity tolerance. Today his o2 ran between 67 to 87 with cues and breathing techniques to return to normal for him. P: Continue per plan of care.
--- NOTE | 2016-11-03 16:30 | PT.PROG ---
Progress Note Progress Note: S. Patient stated that he had a headache earlier this afternoon however is feeling better. O. Patient performed exercises in the form of; heel toe raises, marches, long arc quads, sit to stand and box step ups (#2 box) Patient ambulated 175 feet back to his room where he was left in bed with alarm and call light. A. Patient tolerated therapy well this afternoon. He continues to monitor his o2 sats well. He struggles with balance when he gets short of oxygen however is able to recover with seated rest breaks. Patient would continue to benefit from skilled therapy at this time. P. continue POC.
[2016-11-03] MEDS: ATORVASTATIN 40 MG TABLET PO SCH (21:05)
[2016-11-04] MEDS: traMADol 50 MG TABLET PO PRN (00:13)
[2016-11-04] MEDS: ALBUTEROL SULFATE 2.5 MG/3 ML NEB SCH ×2 (07:15→10:57)
[2016-11-04] MEDS: FLUTICASONE/SALMETEROL 250/50 UD INHALER INH SCH (07:15)
[2016-11-04] MEDS: TIOTROPIUM BROMIDE 18 MCG CAPSULE INH SCH (07:16)
[2016-11-04] MEDS: ESCITALOPRAM 10 MG TABLET PO SCH (07:27)
[2016-11-04] MEDS: TAMSULOSIN 0.4 MG CAPSULE PO SCH (08:25)
[2016-11-04] MEDS: PANTOPRAZOLE 40 MG TABLET PO SCH (08:25)
[2016-11-04] MEDS: predniSONE Tab 20 MG TAB PO SCH (08:25)
[2016-11-04] MEDS: ENOXAPARIN SODIUM 40 MG/0.4 ML SYRINGE SUBCUT SCH (08:25)
[2016-11-04] MEDS: AMIODARONE 200 MG TABLET PO SCH (08:25)
[2016-11-04] MEDS: ASPIRIN 325 MG TABLET PO SCH (08:25)
[2016-11-04] MEDS: DOXYCYCLINE HYCLATE 100 MG CAPSULE PO SCH (08:25)
--- NOTE | 2016-11-04 10:00 | OT AM DAY ---
Diagnosis : Weakness AM - Occupational Therapy S: The patient states he slept pretty well. He says he has been in contact with his family on and off. He state he wants to go home soon but he understands he will be discharged when he is ready. O: The patient was seen in his room. He completed upper extremity dressing with modified independence as it took him a little longer to complete. The patient completed transfer while pushing wheelchair x150 feet downstairs to the therapy gym. Once in the gym he completed 5 minutes on the upper body ergometer to increase his activity tolerance. He also completed upper extremity active range of motion activities to make sure we maintain all range of motion and strength in the upper extremities to assist with postural transitions. Throughout treatment the patient's oxygen saturation fluctuated anywhere from 68-90%; it would take several breathing techniques to increase his oxygen. The patient's oxygen was increased to 8 liters at one point to make sure his saturation was in the 85-90% area. The patient was returned to his room. He was left in a supine position in bed with call light within reach. A: The patient's oxygen saturation does drop quite drastically once he begins to move. He needs cues to return his oxygen saturation to normal with the use of breathing techniques. P: Continue seeing patient BID during the week and one time per day over the weekend for upper extremity strengthening, ADLs, and overall functional mobility. ANIYAD
--- NOTE | 2016-11-04 10:32 | OT PM DAY ---
Diagnosis : Weakness PM - Occupational Therapy S: The patient states he just got done with his IV and he is ready to go down for therapy. O: The patient was seen in his room. He completed a functional transfer approximately 35 feet before needing a rest. His oxygen saturation was checked and it was very low; we gave him an opportunity for that to increase. Once the patient's oxygen saturation got up to about 85%, he completed his transfer downstairs. Once in therapy the patient completed standing dynamic balance activity including tapping balloon with bilateral upper extremities for approximately 5 minutes with contact guard assist for safety. The patient also completed therapeutic exercises with red theraband in biceps flexion, triceps extension, and horizontal abduction. The patient completed upper body ergometer x4 minutes to increase his activity tolerance. The patient then transferred back to his room x150 feet with no rest breaks. He then completed bed mobility independently. The patient was left upright in bed with bed alarm and call light within reach. A: The patient would continue to benefit from therapy to increase his activity tolerance and to improve his overall strength. We will continue to monitor his oxygen saturation as it drops with any activity. We may have to increase his oxygen to 8 liters to maintain oxygen saturation of 85-90%. P: Continue seeing patient BID during the week and one time per day over the weekend per plan of care. ANIYAD
--- NOTE | 2016-11-04 11:36 | PDOC(PROG) ---
Date and Time of Service: 11/04/2016 11:34 AM Interval History: Subjective Patient feels better, he said he is ready to go home. Shortness of breath improved compared to when he came in her overall he improved compared to when he came in Objective : Data - Labs CBC and BMP: 10/31/16 06:24 11/01/16 06:35 Objective : Exam - General General Appearance: No Acute Distress, Cooperative - Head Head Exam: Normal Inspection - Eye Eye Exam: Normal Appearance - ENT ENT Exam: Normal Exam - Neck Neck Exam: Normal Inspection - Respiratory Respiratory Exam: Clear to Auscultation - Bilaterally - Cardiovascular Cardiovascular Exam: RRR - GI/Abdominal GI/Abdominal Exam: Normal Bowel Sounds, Non Tender, Non Distended, Soft - Rectal Rectal Exam: Deferred - External Exam: Deferred - Extremities Extremities Exam: Normal Inspection - Back Back Exam: Normal Inspection Assessment and Plan - Patient Problems (1) Pneumonia Current Visit: No Status: Acute Comment: treated with IVF, I think we can discharge him on oral antibiotics. We 'll discharge him also on tapering dose of steroid. Continue his bronchodilator (2) COPD with acute exacerbation Current Visit: Yes Status: Acute Comment: This is improved, continue bronchodilator we'll taper his steroids gradually and give him few more days of antibiotics (3) Mass in chest Current Visit: Yes Status: Acute Comment: We'll book him as an outpatient with oncology to look at the left upper lung mass, will see their opinion about a PET scan. (4) Hypercholesterolemia Current Visit: Yes Status: Acute Comment: same med (5) History of coronary artery disease Current Visit: No Status: Acute Comment: Continue his previous medications
--- NOTE | 2016-11-04 12:06 | PT.PROG ---
Progress Note Progress Note: S: Pt states he is feeling good this morning. State he does not feel short of breath and no headache prior to this morning's PT session. O: Pt performed Nustep x 10 min w/ intervals of 2 min on/2 min off to allow pt' s O2 sat levels to return to appropriate level. Pt performed STS x 10 w/ CGA and verbal cueing for safety. Pt ambulated x 250' to elevator and back to room using wheelchair as AD for upright walking w/ CGA and verbal cueing. Pt was returned to room, put back in bed, and was given call light. Pt's O2 sat levels were monitored throughout today's entire session. A: Pt tolerated today's PT session w/o experiencing undo fatigue or SOB. States he did get a mild headache for just a minute while on Nustep but headache subside quickly. Continues to require skilled PT to improve strength, endurance, and ambulation ability. P: Continue to see patient 2x/day for skilled PT. Soham Wade, SPT
--- NOTE | 2016-11-04 12:27 | DCSUMMARY ---
Hospitalization Summary Admit Date: 10/29/16 Discharge Date: 11/04/16 Hospital Course: Discharge diagnoses 1. Pneumonia 2. COPD exacerbation secondary to pneumonia 3. 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 Coronary artery disease with the previous stents in the past 5. Ischemic cardiomyopathy status post AICD insertion 6. History of ventricular arrhythmia 7. Depression Hospital course This is a 76 years old male with medical history significant for history of COPD on oxygen, coronary artery disease with previous stents, history of ventricular arrhythmia before status post AICD insertion who came into the hospital because of shortness of breath and because of that he came into the ER and was admitted. A CT of the chest showed pneumonia in addition to the presence of a left-sided speculated mass. He was put on antibiotics IV steroid and breathing treatment. Dr. Brunson spoke with the pulmonology in [place] because of the speculated mass in the left upper lobe they told him it is very difficult to biopsy and have the feeling that it would probably result in pneumothorax. He suggested that follow-up as an outpatient with oncology maybe a PET scan follow-up for it. I saw the patient later on during his hospital stay we continued with the antibiotics, breathing treatment and gradually tapered off the steroid. He started also physical therapy. On the day of discharge he was doing better we thought that she could be discharged home on tapering dose of steroid and antibiotics and follow-up with his physician as an outpatient. In addition will try to arrange for him to get an appointment with oncology to look at the mass to see their opinion about a PET scan. Laboratory Results 10/28/16 10/28/16 10/29/16 Range/Units 23:20 23:49 00:00 WBC 9.36 (4.8-10.8) 10^3/uL RBC 3.71 L (4.70-6.10) 10^6/uL Hgb 10.8 L (14.0-18.0) g/dL Hct 33.8 L (42.0-52.0) % MCV 91.1 H (80-90) FL MCH 29.1 (27-31) PG MCHC 32.0 L (33-37) g/dL RDW Std Deviation 62.1 H (39-50) fL RDW Coeff of Clarence 19.2 H (11.5-14.5) % Plt Count 208 (140-350) 10*3/uL MPV 9.8 (7.4-12.2) FL Immature Gran % (Auto) 0.1 (0-5) % Neut % (Auto) 83.3 H (50-80) % Lymph % (Auto) 6.8 L (10-50) % [place] % (Auto) 9.5 (5-15) % Eos % (Auto) 0.1 (0-8) % Baso % (Auto) 0.2 (0-1) % Immature Gran # (Auto) 0.01 10*3/UL Neut # (Auto) 7.79 10*3/UL Lymph # (Auto) 0.64 10*3/uL [place] # (Auto) 0.89 H (0.3-0.8) 10*3/UL Eos # (Auto) 0.01 10*3/UL Baso # (Auto) 0.02 10*3/UL WBC Morphology Comment Normal morphology (NORM) Plt Morphology Comment Normal morphology (NORM) RBC Morph Comment Normal morphology (NORM) D-Dimer 4.78 H (0.00-0.59) mg/L VBG pH 7.37 (7.32-7.42) VBG pCO2 46 (45-55) mmHg VBG HCO3 27 H (22-26) mmol/L VBG Base Excess 1 (-2-2) MMOL/L Sodium 136 (135-145) meq/L Potassium 4.4 (3.8-5.2) meq/L Chloride 99 (98-112) meq/L Carbon Dioxide 28 (23-33) meq/L Anion Gap 9 (5-20) BUN 19 (7-22) mg/dL Creatinine 0.8 (0.70-1.50) mg/dL Estimated GFR (>60 ml/min/1.73m(2)) BUN/Creatinine Ratio 23.75 H (6-20) Glucose 123 H (78-110) mg/dL Calculated Osmolality 284.0 (267-292) mOsm/kg Lactic Acid 1.3 (0.70-2.10) MMOL/L Calcium 9.1 (8.7-10.7) mg/dL Total Bilirubin 0.6 (0.3-1.2) mg/dL AST 25 (21-57) IU/L ALT 16 L (21-72) IU/L Alkaline Phosphatase 93 (38-126) IU/L Troponin I < 0.012 (< 0.040) ng/mL NT-Pro-B Natriuret Pep 1940 H (0-125) PG/ML Total Protein 7.9 (6.1-8.0) g/dL Albumin 3.3 L (3.5-4.8) g/dL Globulin 4.6 H (2.50-4.10) g/dL Albumin/Globulin Ratio 0.70 L (1.3-2.0) mg/g 10/30/16 10/30/16 10/31/16 Range/Units 06:09 18:00 06:24 WBC 12.38 H 14.70 H (4.8-10.8) 10^3/uL RBC 3.55 L 3.42 L (4.70-6.10) 10^6/uL Hgb 10.2 L 9.8 L (14.0-18.0) g/dL Hct 31.9 L 30.9 L (42.0-52.0) % MCV 89.9 90.4 H (80-90) FL MCH 28.7 28.7 (27-31) PG MCHC 32.0 L 31.7 L (33-37) g/dL RDW Std Deviation 61.2 H 62.5 H (39-50) fL RDW Coeff of Clarence 19.1 H 19.4 H (11.5-14.5) % Plt Count 221 225 (140-350) 10*3/uL MPV 10.3 10.1 (7.4-12.2) FL Immature Gran % (Auto) 0.2 0.2 (0-5) % Neut % (Auto) 94.5 H 95.5 H (50-80) % Lymph % (Auto) 3.1 L 2.4 L (10-50) % [place] % (Auto) 2.2 L 1.9 L (5-15) % Eos % (Auto) 0 0 (0-8) % Baso % (Auto) 0 0 (0-1) % Immature Gran # (Auto) 0.02 0.03 10*3/UL Neut # (Auto) 11.71 14.04 10*3/UL Lymph # (Auto) 0.38 0.35 10*3/uL [place] # (Auto) 0.27 L 0.28 L (0.3-0.8) 10*3/UL Eos # (Auto) 0 0 10*3/UL Baso # (Auto) 0 0 10*3/UL WBC Morphology Comment Normal morphology Normal morphology (NORM) Plt Morphology Comment Normal morphology Normal morphology (NORM) RBC Morph Comment Normal morphology Normal morphology (NORM) D-Dimer (0.00-0.59) mg/L VBG pH (7.32-7.42) VBG pCO2 (45-55) mmHg VBG HCO3 (22-26) mmol/L VBG Base Excess (-2-2) MMOL/L Sodium 138 137 (135-145) meq/L Potassium 4.3 4.6 (3.8-5.2) meq/L Chloride 99 103 (98-112) meq/L Carbon Dioxide 29 28 (23-33) meq/L Anion Gap 10 6 (5-20) BUN 28 H 30 H (7-22) mg/dL Creatinine 0.7 0.7 (0.70-1.50) mg/dL Estimated GFR (>60 ml/min/1.73m(2)) BUN/Creatinine Ratio 40.00 H 42.85 H (6-20) Glucose 137 H 132 H (78-110) mg/dL Calculated Osmolality 293.0 H 291.0 (267-292) mOsm/kg Lactic Acid 3.0 H (0.70-2.10) MMOL/L Calcium 9.2 8.6 L (8.7-10.7) mg/dL Total Bilirubin (0.3-1.2) mg/dL AST (21-57) IU/L ALT (21-72) IU/L Alkaline Phosphatase (38-126) IU/L Troponin I (< 0.040) ng/mL NT-Pro-B Natriuret Pep (0-125) PG/ML Total Protein (6.1-8.0) g/dL Albumin (3.5-4.8) g/dL Globulin (2.50-4.10) g/dL Albumin/Globulin Ratio (1.3-2.0) mg/g 11/01/16 Range/Units 06:35 WBC (4.8-10.8) 10^3/uL RBC (4.70-6.10) 10^6/uL Hgb (14.0-18.0) g/dL Hct (42.0-52.0) % MCV (80-90) FL MCH (27-31) PG MCHC (33-37) g/dL RDW Std Deviation (39-50) fL RDW Coeff of Clarence (11.5-14.5) % Plt Count (140-350) 10*3/uL MPV (7.4-12.2) FL Immature Gran % (Auto) (0-5) % Neut % (Auto) (50-80) % Lymph % (Auto) (10-50) % [place] % (Auto) (5-15) % Eos % (Auto) (0-8) % Baso % (Auto) (0-1) % Immature Gran # (Auto) 10*3/UL Neut # (Auto) 10*3/UL Lymph # (Auto) 10*3/uL [place] # (Auto) (0.3-0.8) 10*3/UL Eos # (Auto) 10*3/UL Baso # (Auto) 10*3/UL WBC Morphology Comment (NORM) Plt Morphology Comment (NORM) RBC Morph Comment (NORM) D-Dimer (0.00-0.59) mg/L VBG pH (7.32-7.42) VBG pCO2 (45-55) mmHg VBG HCO3 (22-26) mmol/L VBG Base Excess (-2-2) MMOL/L Sodium 138 (135-145) meq/L Potassium 4.4 (3.8-5.2) meq/L Chloride 102 (98-112) meq/L Carbon Dioxide 28 (23-33) meq/L Anion Gap 8 (5-20) BUN 29 H (7-22) mg/dL Creatinine 0.7 (0.70-1.50) mg/dL Estimated GFR (>60 ml/min/1.73m(2)) BUN/Creatinine Ratio 41.42 H (6-20) Glucose 118 H (78-110) mg/dL Calculated Osmolality 292.0 (267-292) mOsm/kg Lactic Acid (0.70-2.10) MMOL/L Calcium 8.6 L (8.7-10.7) mg/dL Total Bilirubin 0.2 L (0.3-1.2) mg/dL AST 23 (21-57) IU/L ALT 25 (21-72) IU/L Alkaline Phosphatase 78 (38-126) IU/L Troponin I (< 0.040) ng/mL NT-Pro-B Natriuret Pep (0-125) PG/ML Total Protein 6.5 (6.1-8.0) g/dL Albumin 2.7 L (3.5-4.8) g/dL Globulin 3.8 (2.50-4.10) g/dL Albumin/Globulin Ratio 0.70 L (1.3-2.0) mg/g Discharge instruction Diet regular Activity as started Medications Home Medications Medication Instructions Recorded Confirmed Type Aspirin 650 mg PO DAILY #60 tablet 01/13/15 10/29/16 Rx Lidocaine HCl [Lidocaine HCl 15 ml PO QID PRN #100 ml 08/06/15 10/29/16 Clinic Viscous] Albuterol Sulfate 2.5 mg [facility] RTQID #120 vial.neb 08/18/16 10/29/16 Clinic Amiodarone HCl [Pacerone] 200 mg PO DAILY #30 tablet 08/18/16 10/29/16 Clinic Atorvastatin Calcium [Lipitor] 40 mg PO BEDTIME #30 tablet 08/18/16 10/29/16 Clinic Escitalopram Oxalate [Lexapro] 10 mg PO EVERY AM #30 tablet 08/18/16 10/29/16 Clinic Fluticasone Propionate [Flonase 2 spr ARAVIND QD #1 spr 08/18/16 10/29/16 Clinic Allergy Relief] Fluticasone/Vilanterol [Breo 1 each IH QD #1 inhaler 08/18/16 10/29/16 Clinic Ellipta 200-25 Mcg INH] Losartan Potassium 0.5 tab PO QD #45 tab 08/18/16 10/29/16 Clinic Pantoprazole Sodium [Protonix] 40 mg PO BID #60 tablet 08/18/16 10/29/16 Clinic Tamsulosin HCl [Flomax] 0.4 mg PO DAILY #30 cap 08/18/16 10/29/16 Clinic Tiotropium [place] [Spiriva] 18 mcg INH RTDAILY #30 inhaler 08/18/16 10/29/16 Clinic Tramadol HCl 1 tab PO Q4H PRN #90 tab 10/28/16 10/29/16 Clinic Cefuroxime Axetil [Cefuroxime] 500 mg PO BID #8 tablet 11/04/16 Rx Doxycycline Monohydrate 100 mg PO BID #8 capsule 11/04/16 Rx Prednisone 40 mg PO DAILY #20 tab 11/04/16 Rx Follow-up with his PCP in 1-2 weeks, follow-up with oncology in 2-3 weeks Condition at discharge was stable for discharge Exam - Vitals Vital Signs: Vital Signs Temperature 98.6 F Temperature Source Temporal Artery Scan Pulse Rate [Apical] 82 Pulse Rate [Pulse Oximeter] 80 Pulse Rate 75 Respiratory Rate 20 Blood Pressure [Left Arm] 121/62 Blood Pressure [Right Arm] 114/62 Blood Pressure 93/71 Pulse Ox 91 Oxygen Flow Rate 5 Oxygen Delivery Method Nasal Cannula Height 5 ft 8 in Weight 123 lb 12.8 oz Patient Problems - Patient Problem List (1) Pneumonia Status: Acute (2) COPD with acute exacerbation Status: Acute (3) Mass in chest Status: Acute (4) Hypercholesterolemia Status: Acute (5) History of coronary artery disease Status: Acute
[2016-11-04 13:08] VITALS: RESP 22; TEMP 98.2
--- NOTE | 2016-11-05 16:29 | OT AM DAY ---
Diagnosis : Weakness AM - Occupational Therapy S: The patient was a little agitated this morning. He wanted to see the doctor and wanted to go home. He did agree to go down for therapy and get out of his room. O: The patient was seen in his room. He was in a supine position and he completed bed mobility independently. He completed transfer while pushing a wheelchair for support x65 feet. He took one break and his oxygen saturation was checked. His oxygen saturation was pretty low so we did some breathing techniques to increase his oxygen to 85%. The patient felt better and continued to transfer downstairs to the therapy gym. He completed upper body ergometer x5 minutes to increase his activity tolerance. The patient then transferred to the mat table and his oxygen saturation dropped again. We did some breathing techniques to bring his oxygen up. The patient then stood on blue air-x to increase balance and lower extremity strength followed by marching x5 minutes. He then completed upper extremity exercises with red theraband in shoulder flexion, shoulder abduction, and biceps flexion. PT then took over session. A: The patient's activity tolerance has increased and has maintained his strength. He also does well with his balance. He would continue to benefit from therapy to increase his activity tolerance as his oxygen saturation drops. He needs cues for breathing techniques to increase his oxygen saturation. P: Patient will most likely discharge to home today. MTDD
== END 2016-11-04 14:00 | disposition home or self-care (01) | DRG 190 ==
LOC: ER 23:00 → MED/SURG 10-29 02:59
PROVIDERS: ADMIT Family Medicine; ATTEND Family Medicine
DX: J44.1 Chronic obstructive pulmonary disease with (acute) exacerbation (principal); J18.9 Pneumonia, unspecified organism; R64 Cachexia; E46 Unspecified protein-calorie malnutrition; R91.8 Other nonspecific abnormal finding of lung field; I25.10 Atherosclerotic heart disease of native coronary artery without angina pectoris; I25.5 Ischemic cardiomyopathy; F32.9 Major depressive disorder, single episode, unspecified; E78.00 Pure hypercholesterolemia, unspecified; R62.7 Adult failure to thrive
CPT/HCPCS: 36415; 71010; 71260; 80053; 83605; 83880; 84484; 85025; 85379; 87040; 93005; 93010; 94640; 96365; 96375; 99285 ×2; J7620; 36600; 70470; 76942; 80048; 82803; 94761; 97110; 97162; 97165; 97530; 97535; J0696; J1100; J1650; J1940; J2001; J7030; J7050; J7512

== ENCOUNTER → 2016-11-11 | Outpatient (CLI) | payer OTHER | LOC: MMPC 11:11 | PROVIDERS: ATTEND Nurse Practitioner | DX: J18.1 Lobar pneumonia, unspecified organism (principal); J44.1 Chronic obstructive pulmonary disease with (acute) exacerbation; R91.8 Other nonspecific abnormal finding of lung field; R63.6 Underweight; Z09 Encounter for follow-up examination after completed treatment for conditions other than malignant neoplasm | CPT/HCPCS: 99214 ==

== ENCOUNTER → 2017-03-15 | Outpatient (CLI) | payer OTHER ==
[2017-03-15 15:50] LABS: BASOPHILS # (AUTO) 0.04 10*3/UL; BASOPHILS % (AUTO) 0.8 % (0-1); EOSINOPHILS # (AUTO) 0.39 10*3/UL; EOSINOPHILS % (AUTO) 8.1 % (0-8); HEMATOCRIT 33.4 % (42.0-52.0); HEMOGLOBIN 10.5 g/dL (14.0-18.0); LYMPHOCYTES # (AUTO) 1.06 10*3/uL; MEAN CORPUSCULAR HEMOGLOBIN 26.6 PG (27-31); MEAN CORPUSCULAR HGB CONC 31.4 g/dL (33-37); MEAN CORPUSCULAR VOLUME 84.8 FL (80-90); MEAN PLATELET VOLUME 9.4 FL (7.4-12.2); MONOCYTES # (AUTO) 0.75 10*3/UL (0.3-0.8); MONOCYTES % (AUTO) 15.6 % (5-15); NEUTROPHILS # (AUTO) 2.56 10*3/UL; NEUTROPHILS % (AUTO) 53.3 % (50-80); RED BLOOD COUNT 3.94 10^6/uL (4.70-6.10)
[2017-03-15 15:53] LABS: PLATELET MORPHOLOGY COMMENT NORMAL MORPHOLOGY (NORM); RBC MORPHOLOGY COMMENT NORMAL MORPHOLOGY (NORM); WBC MORPHOLOGY COMMENT NORMAL MORPHOLOGY (NORM)
[2017-03-15 16:07] LABS: BUN/CREATININE RATIO 25.71 (6-20); CALCIUM 8.3 mg/dL (8.7-10.7); CHOL/HDL RATIO 3.14 RATIO (0-4.0); LDL CHOLESTEROL,CALCULATED 35.8 mg/dL; SERUM ALBUMIN 2.9 g/dL (3.5-4.8)
[2017-03-15 19:56] LABS: FREE T4 (FREE THYROXINE) 2.32 ng/dL (0.93-1.71)
== END ==
LOC: MOB LAB 14:52
PROVIDERS: ATTEND Internal Medicine
DX: E78.5 Hyperlipidemia, unspecified (principal); J44.9 Chronic obstructive pulmonary disease, unspecified; I25.10 Atherosclerotic heart disease of native coronary artery without angina pectoris; R53.83 Other fatigue; K13.79 Other lesions of oral mucosa; F17.200 Nicotine dependence, unspecified, uncomplicated; R63.6 Underweight; Z79.899 Other long term (current) drug therapy; Z95.810 Presence of automatic (implantable) cardiac defibrillator
CPT/HCPCS: 36415; 80053; 80061; 82550; 84439; 84443; 85025; 99214; G0463

== ENCOUNTER 2017-05-22 09:17 | Inpatient (IN) ==
[2017-05-22] MEDS ORDERED: Famotidine Inj 20 MG in Normal Saline Flush 10 ML IVP ONE (09:46)
[2017-05-22] MEDS ORDERED: NORMAL SALINE 10 ML SYRINGE FLUSH IVP PRN (09:46)
[2017-05-22] MEDS ORDERED: ONDANSETRON 4 MG/2 ML VIAL IVP ONE (09:46)
[2017-05-22] MEDS ORDERED: Sodium Chloride 0.9% 1,000 ML PRIMARY IV ONE (09:46)
[2017-05-22] MEDS ORDERED: IPRATROPIUM/ALBUTEROL SULFATE 3 ML NEB NEB ONE ×2 (09:49→09:51)
[2017-05-22 10:22] LABS: BASOPHILS # (AUTO) 0.05 10*3/UL; BASOPHILS % (AUTO) 0.4 % (0-1); EOSINOPHILS # (AUTO) 0 10*3/UL; EOSINOPHILS % (AUTO) 0 % (0-8); Hematocrit [HCT] 37.2 % (42.0-52.0); LYMPHOCYTES # (AUTO) 0.76 10*3/uL; MEAN CORPUSCULAR HEMOGLOBIN 28.4 PG (27-31); MEAN CORPUSCULAR HGB CONC 32.3 g/dL (33-37); MEAN CORPUSCULAR VOLUME 87.9 FL (80-90); MEAN PLATELET VOLUME 9.8 FL (7.4-12.2); MONOCYTES # (AUTO) 0.72 10*3/UL (0.3-0.8); MONOCYTES % (AUTO) 5.4 % (5-15); NEUTROPHILS # (AUTO) 11.86 10*3/UL; NEUTROPHILS % (AUTO) 88.3 % (50-80); RED BLOOD COUNT 4.23 10^6/uL (4.70-6.10)
[2017-05-22 10:41] LABS: BLOOD UREA NITROGEN 21 mg/dL (7-22); BUN/CREATININE RATIO 26.25 (6-20); SERUM ALBUMIN 3.5 g/dL (3.5-4.8)
[2017-05-22 10:41] LABS: VENOUS PH 7.34 (7.32-7.42)
[2017-05-22 10:42] LABS: LIPASE < 10 IU/L (23-300)
[2017-05-22 11:06] LABS: PLATELET MORPHOLOGY COMMENT NORMAL MORPHOLOGY (NORM); RBC MORPHOLOGY COMMENT NORMAL MORPHOLOGY (NORM); WBC MORPHOLOGY COMMENT SEE COMMENTS (NORM)
[2017-05-22] MEDS ORDERED: MORPHINE SULFATE 2 MG/1 ML IVP ONE (11:33)
[2017-05-22] MEDS ORDERED: MORPHINE SULFATE 4 MG/1 ML IVP ONE (12:11)
--- NOTE | 2017-05-22 12:50 | DI ---
HISTORY: Abdominal pain. COMPARISON: 10/29/2016. TECHNIQUE: PA and lateral views of the chest are submitted. FINDINGS: Patchy midlung airspace disease is noted bilaterally. There is no pleural effusion or pne umothorax. There is a two lead left chest cardiac device with wire tips projecting over the right atrium and rig ht ventricle. Heart size is at the upper limits of normal with increased pulmonary vasculature that m ay represent early pulmonary edema in the setting of CHF. Atheromatous calcifications are present in the arch of a tortuous aorta. Degenerative changes of the AC joints and spine are noted. IMPRESSION: 1. Bilateral patchy midlung airspace disease. Follow-up to resolution is recommended. 2. Borderline cardiomegaly with increased pulmonary vasculature that may represent early pulmonary ed cindy in the setting of congestive heart failure.
--- NOTE | 2017-05-22 13:06 | DI ---
HISTORY: Upper abdominal pain. COMPARISON: 12/28/2014. TECHNIQUE: Contiguous axial images of the abdomen and pelvis were obtained and submitted for interpr etation. FINDINGS: Normal CT appearance of the gallbladder, pancreas, spleen, and adrenal glands. Coarse dmitry cifications are noted in the right lobe of the liver. The prostate is enlarged and contains coarse c alcifications. The wall of the urinary bladder is thickened, though incompletely distended. Ureters a re unremarkable. No radiopaque collecting system calculi. No evidence of obstructive uropathy. Multi ple calcifications are noted in the bilateral renal pelves, possibly representing vascular calcificat ion versus non-obstructive nephroliths. Hollow viscus organs demonstrate normal course and caliber. The appendix is not clearly identified. There is no intraperitoneal free air or fluid. There are extensive atheromatous aortoiliac and coron radha artery calcifications. A 4.2 cm abdominal aortic aneurysm is noted just proximal to the aortic bi furcation. There is a retroaortic left renal vein. There is moderate diffuse mesenteric fat strandi ng. No abdominopelvic lymphadenopathy is present. There is no inguinal or umbilical hernia. Severe emphysematous changes are noted in the lung bases. A calcified granuloma is noted in the left lower lobe. The lung bases are otherwise clear. Heart size is at the upper limits of normal without pericardial effusion. Wires from a cardiac device are present in the right atrium and right ventricle . There is multilevel degenerative disc disease. IMPRESSION: 1. Enlarged prostate with borderline thickening of the incompletely distended urinary bladder wall. T his can represent pseudo-thickening, although infection or chronic obstruction can cause a similar ap pearance. Clinical and laboratory correlation is recommended as to the necessity of Urologic consulta tion. 2. Multiple calcifications are noted in the bilateral renal pelves, possibly representing vascular ca lcification versus non-obstructive nephroliths. 3. There is a 4.2 cm abdominal aortic aneurysm just proximal to the aortic bifurcation. Vascular surg zachary consultation is recommended for definitive management. 4. Moderate diffuse mesenteric fat stranding. 5. Severe emphysematous changes in the lung bases. NOTIFICATION: The above findings were phoned to Ms. Prajapati in the ER Department on 05/22/2017 at 3:19 pm EST.
[2017-05-22] MEDS ORDERED: LEVOFLOXACIN IV ONE (13:10)
[2017-05-22] MEDS ORDERED: DEXTROSE IV ONE (13:10)
[2017-05-22 13:41] LABS: BILIRUBIN,URINE SMALL (NEG); COLOR,URINE YELLOW; GLUCOSE, URINE (UA) NEGATIVE (NEG); NITRATE,URINE NEGATIVE (NEG); OCCULT BLOOD,URINE NEGATIVE (NEG); PH,URINE 5.5 (5.0-8.5); PROTEIN,URINE NEGATIVE (NEG)
[2017-05-22 13:53] LABS: CLARITY,URINE CLEAR (CLEAR); URINE SAMPLE TYPE CATH SPECIMEN
[2017-05-22] MEDS ORDERED: traMADol 50 MG TABLET PO PRN (15:22)
[2017-05-22] MEDS ORDERED: LIDOCAINE W/ SODIUM BICARB 0.5 ML SYR SUBD PRN (15:22)
[2017-05-22] MEDS ORDERED: LET SOLUTION 40MG/0.5MG/5MG/ML - 3 ML TOPICAL PRN (15:22)
[2017-05-22] MEDS ORDERED: IPRATROPIUM BROMIDE 0.5 mg/2.5 ML NEB SCH (15:22)
--- NOTE | 2017-05-22 16:15 | PDOC ---
History and Physical - History of Present Illness Date and Time of Service: 05/22/2017, 1610 Chief Complaint: Abdominal pain with vomiting History of Present Illness: This is a very pleasant 77-year-old male with COPD, end-stage, depression, peripheral vascular disease, history of tobacco and alcohol abuse, and documented weight loss, who presents with complaints of abdominal pain, mostly upper quadrant, accompanied with nausea and vomiting that started last Tuesday. He called his daughter in [place] today and was quite weak and the daughter called the ambulance for the patient to be evaluated. Patient was brought in and he had a CT scan of the abdomen and pelvis that was unrevealing of any pathology to explain the nausea and vomiting. Pain is much worse with movement. It seems better at rest. Morphine helped in the emergency room. Lipase was negative and did not reveal pancreatitis. Patient denied any alcohol relapse. He is requiring more oxygen and his oxygen saturation was reportedly 79% upon arrival to the emergency room. He states that he is on 4 L of oxygen at home but currently is requiring as much as 7-8 L of oxygen. He was given a dose of Levaquin in the emergency room. Past Medical History Medical History: 1. COPD, end-stage, 2 L per nasal cannula. 2. Coronary artery disease with depressed ejection fraction, status post stents in the past none recent. 3. Cardiomyopathy status post AICD placement, he states that shocked him a year ago or so. 4. Frequent headaches. 5. Tobacco abuse, but quit. 6. History of alcohol abuse, patient states he's not had anything to drink since prior to 2013. 7. Ventricular arrhythmias for which the patient is on amiodarone and has an AICD placed. 8. Amyloidosis. 9. Weight loss, 6 pounds in the last 9 months, and 20-36 pounds over the last couple of years. 10. Depression, on Lexapro. 11. Peripheral vascular disease with abdominal aortic aneurysm at 4.2 cm liters, up 0.3 cm from 2012 Surgical History: 1. Right partial index finger amputation. 2. AICD placement. 3. Cardiac stents Pertinent Family History: Mother in 90s, and father in a car wreck. No other major medical issues in the family per the patient Past Social History: Former smoker, quit., used to drink, had a life partner of 25 years who recently . Retired and lives in [place]. Has 2 daughters. Tobacco Use: Former Smoker Substance Use Type: None Alcohol Use: None Medication / Allergies Home Medications: Home Medications Medication Instructions Recorded Confirmed Type Aspirin 650 mg PO DAILY #60 tablet 01/13/15 05/22/17 Rx Amiodarone HCl [Pacerone] 200 mg PO DAILY #30 tablet 08/18/16 05/22/17 Clinic Atorvastatin Calcium [Lipitor] 40 mg PO BEDTIME #30 tablet 08/18/16 05/22/17 Clinic Escitalopram Oxalate [Lexapro] 10 mg PO EVERY AM #30 tablet 08/18/16 05/22/17 Clinic Fluticasone Propionate [Flonase 2 spr ARAVIND QD #1 spr 08/18/16 05/22/17 Clinic Allergy Relief] Pantoprazole Sodium [Protonix] 40 mg PO BID #60 tablet 08/18/16 05/22/17 Clinic Tamsulosin HCl [Flomax] 0.4 mg PO DAILY #30 cap 08/18/16 05/22/17 Clinic Tiotropium [place] [Spiriva] 18 mcg INH RTDAILY #30 inhaler 08/18/16 05/22/17 Clinic Lidocaine HCl [Lidocaine Hcl 15 ml PO QID PRN #100 ml 03/15/17 05/22/17 Clinic Viscous] Tramadol HCl 1 tab PO Q4H PRN #90 tab 03/15/17 05/22/17 Clinic Losartan Potassium 0.5 tab PO QD #45 tab 03/21/17 05/22/17 Clinic Albuterol/Ipratrop Neb Soln 3 ml NEB QID 05/22/17 05/22/17 History [Duoneb Neb Soln] Cholecalciferol (Vitamin D3) 2,000 unit PO DAILY 05/22/17 05/22/17 History [Vitamin D3] Cyanocobalamin/Folic Acid [Vitamin 1 each PO DAILY 05/22/17 05/22/17 History X85-[id number] Acid Tablet] Fluticasone/Salmeterol [Advair 1 each IH BID 05/22/17 05/22/17 History 500-50 Diskus] Vitamin E 400 unit PO DAILY 05/22/17 05/22/17 History Allergies/Adverse Reactions: Allergies Allergy/AdvReac Type Severity Reaction Status Date / Time Penicillins Allergy Intermediate RASH Verified 05/22/17 09:32 Review of Systems - Review of Systems All Systems: Reviewed & No Additional Complaints Except as Stated (I did a 12 point review systems and it was negative other than that discussed in history present illness and that noted below.) - Constitutional Constitutional: REPORTS: General Health Poor, Weight Loss, Fatigue - Respiratory Respiratory: REPORTS: Cough, Dyspnea with Exertion (States he can walk about 10 feet before he has to stop and rest.) - Cardiovascular Cardiovascular: REPORTS: Other (He states that his AICD fired about a year ago.) - Gastrointestinal Gastrointestinal / Abdominal: REPORTS: Nausea, Vomiting, Other (Denies diarrhea , constipation, blood in stool, or hematemesis) - Genitourinary Genitourinary: REPORTS: Negative System Review - Musculoskeletal Musculoskeletal: REPORTS: Other (Complains of total body pain that is treated with tramadol at night with success.) - Neurological Neurologic: REPORTS: Headache (Chronic, frequent) - Psychiatric Psychiatric: REPORTS: Depressed (Not suicidal) Exam - Vitals Vital Signs: Vital Signs Temperature 98 F Temperature Source Temporal Artery Scan Pulse Rate 75 Blood Pressure 101/54 Pulse Ox 97 Oxygen Flow Rate 8 Oxygen Delivery Method Nasal Cannula Height 5 ft 8 in Weight 120 lb - General General Appearance: POSITIVE: No Acute Distress, Cooperative, Thin - Head Head Exam: POSITIVE: Normocephalic, Atraumatic Additional Head Exam Details: Temporal wasting - Eye Eye Exam: POSITIVE: No Scleral Icterus - ENT ENT Exam: POSITIVE: Mucous Membranes Moist - Neck Neck Exam: POSITIVE: Normal Inspection, No Tenderness, No Thyromegaly Additional Neck Exam Details: Prominent anterior scalene muscles - Respiratory Respiratory Exam: POSITIVE: Breathing Non Labored, Decreased Breath Sounds, Dull to Percussion - Cardiovascular Cardiovascular Exam: POSITIVE: RRR, No Murmur, No Clicks, No Gallops, No Rubs, No JVD Additional Cardiovascular Details: AICD appears to be in correct location - GI/Abdominal GI/Abdominal Exam: POSITIVE: Normal Bowel Sounds, Non Tender, Non Distended, Soft, No Organomegaly - Rectal Rectal Exam: POSITIVE: Deferred - External Exam: POSITIVE: Deferred Exam: POSITIVE: Deferred - Extremities Extremities Exam: POSITIVE: No Edema Present, No Cyanosis Present, Clubbing Present - Back Back Exam: POSITIVE: Normal Inspection, No CVA Tenderness - Neurological Neurological Exam: POSITIVE: Alert, Oriented x 3, No Facial Droop, Speech Intact / Clear, Moves All Extremities Equally - Psychiatric Psychiatric Exam: POSITIVE: Normal Affect, Depressed - Integumentary Integumentary Exam: POSITIVE: Normal Color, Warm, Dry, Intact - Central Line Examination Central Line Present on Admission: No Results - Labs CBC and BMP: 05/22/17 10:12 05/22/17 10:12 Labs - Last 24 Hours: Laboratory Results 05/22/17 05/22/17 05/22/17 Range/Units 09:46 10:12 10:30 WBC 13.42 H (4.8-10.8) 10^3/uL RBC 4.23 L (4.70-6.10) 10^6/uL Hgb 12.0 L (14.0-18.0) g/dL Hct 37.2 L (42.0-52.0) % MCV 87.9 (80-90) FL MCH 28.4 (27-31) PG MCHC 32.3 L (33-37) g/dL RDW Std Deviation 64.6 H (39-50) fL RDW Coeff of [place] 20.3 H (11.5-14.5) % Plt Count 189 (140-350) 10*3/uL MPV 9.8 (7.4-12.2) FL Immature Gran % (Auto) 0.2 (0-5) % Neut % (Auto) 88.3 H (50-80) % Lymph % (Auto) 5.7 L (10-50) % [place] % (Auto) 5.4 (5-15) % Eos % (Auto) 0 (0-8) % Baso % (Auto) 0.4 (0-1) % Immature Gran # (Auto) 0.03 10*3/UL Neut # (Auto) 11.86 10*3/UL Lymph # (Auto) 0.76 10*3/uL [place] # (Auto) 0.72 (0.3-0.8) 10*3/UL Eos # (Auto) 0 10*3/UL Baso # (Auto) 0.05 10*3/UL WBC Morphology Comment See comments (NORM) Plt Morphology Comment Normal morphology (NORM) RBC Morph Comment Normal morphology (NORM) VBG pH 7.34 (7.32-7.42) VBG pCO2 50 (45-55) mmHg VBG HCO3 27 H (22-26) mmol/L VBG Base Excess 1 (-2-2) MMOL/L Sodium 142 (135-145) meq/L Potassium 4.8 (3.8-5.2) meq/L Chloride 104 (98-112) meq/L Carbon Dioxide 27 (23-33) meq/L Anion Gap 11 (5-20) BUN 21 (7-22) mg/dL Creatinine 0.8 (0.70-1.50) mg/dL Estimated GFR (>60 ml/min/1.73m(2)) BUN/Creatinine Ratio 26.25 H (6-20) Glucose 123 H (78-110) mg/dL Calculated Osmolality 297.0 H (267-292) mOsm/kg Lactic Acid (0.70-2.10) MMOL/L Calcium 9.7 (8.7-10.7) mg/dL Total Bilirubin 1.0 (0.3-1.2) mg/dL AST 38 (21-57) IU/L ALT 28 (21-72) IU/L Alkaline Phosphatase 60 (38-126) IU/L Total Protein 7.6 (6.1-8.0) g/dL Albumin 3.5 (3.5-4.8) g/dL Globulin 4.1 (2.50-4.10) g/dL Albumin/Globulin Ratio 0.80 L (1.3-2.0) mg/g Amylase 48 (30-110) U/L Lipase < 10 L (23-300) IU/L Ur Collection Type Cath specimen Urine Color Yellow Urine Clarity Clear (CLEAR) Urine pH 5.5 (5.0-8.5) Ur Specific [place] 1.010 (1.005-1.030) Urine Protein Negative (NEG) mg/dl Urine Glucose (UA) Negative (NEG) mg/dL Urine Ketones Negative (NEG) Urine Occult Blood Negative (NEG) Urine Nitrate Negative (NEG) Urine Bilirubin Small (NEG) Urine Urobilinogen 1.0 (0.2) EU/dL Ur Leukocyte Esterase Negative (NEG) Ur Culture Indicated? Culture not set 05/22/17 Range/Units 13:26 WBC (4.8-10.8) 10^3/uL RBC (4.70-6.10) 10^6/uL Hgb (14.0-18.0) g/dL Hct (42.0-52.0) % MCV (80-90) FL MCH (27-31) PG MCHC (33-37) g/dL RDW Std Deviation (39-50) fL RDW Coeff of [place] (11.5-14.5) % Plt Count (140-350) 10*3/uL MPV (7.4-12.2) FL Immature Gran % (Auto) (0-5) % Neut % (Auto) (50-80) % Lymph % (Auto) (10-50) % [place] % (Auto) (5-15) % Eos % (Auto) (0-8) % Baso % (Auto) (0-1) % Immature Gran # (Auto) 10*3/UL Neut # (Auto) 10*3/UL Lymph # (Auto) 10*3/uL [place] # (Auto) (0.3-0.8) 10*3/UL Eos # (Auto) 10*3/UL Baso # (Auto) 10*3/UL WBC Morphology Comment (NORM) Plt Morphology Comment (NORM) RBC Morph Comment (NORM) VBG pH (7.32-7.42) VBG pCO2 (45-55) mmHg VBG HCO3 (22-26) mmol/L VBG Base Excess (-2-2) MMOL/L Sodium (135-145) meq/L Potassium (3.8-5.2) meq/L Chloride (98-112) meq/L Carbon Dioxide (23-33) meq/L Anion Gap (5-20) BUN (7-22) mg/dL Creatinine (0.70-1.50) mg/dL Estimated GFR (>60 ml/min/1.73m(2)) BUN/Creatinine Ratio (6-20) Glucose (78-110) mg/dL Calculated Osmolality (267-292) mOsm/kg Lactic Acid 1.4 (0.70-2.10) MMOL/L Calcium (8.7-10.7) mg/dL Total Bilirubin (0.3-1.2) mg/dL AST (21-57) IU/L ALT (21-72) IU/L Alkaline Phosphatase (38-126) IU/L Total Protein (6.1-8.0) g/dL Albumin (3.5-4.8) g/dL Globulin (2.50-4.10) g/dL Albumin/Globulin Ratio (1.3-2.0) mg/g Amylase (30-110) U/L Lipase (23-300) IU/L Ur Collection Type Urine Color Urine Clarity (CLEAR) Urine pH (5.0-8.5) Ur Specific [place] (1.005-1.030) Urine Protein (NEG) mg/dl Urine Glucose (UA) (NEG) mg/dL Urine Ketones (NEG) Urine Occult Blood (NEG) Urine Nitrate (NEG) Urine Bilirubin (NEG) Urine Urobilinogen (0.2) EU/dL Ur Leukocyte Esterase (NEG) Ur Culture Indicated? - Imaging Status: Image Reviewed by Me (Chest x-ray, on my view, shows chronic scarring in the right midlung and left midlung. CT scan of the abdomen and pelvis was reviewed and the radiologist felt it was notable for a 4.2 cm abdominal aortic aneurysm and an enlarged prostate with coarse calcifications in thickening of the urinary bladder.) Assessment and Plan - Patient Problems (1) COPD exacerbation Current Visit: Yes Status: Acute (2) Abdominal pain Current Visit: Yes Status: Acute Qualifiers: Abdominal location: right upper quadrant Qualified Description: Right upper quadrant abdominal pain Qualifier Code(s): (R10.11) Right upper quadrant pain (3) Cachexia Current Visit: Yes Status: Acute (4) Failure to thrive in adult Current Visit: Yes Status: Chronic (5) Ventricular arrhythmia Current Visit: Yes Status: Chronic (6) Vitamin B12 deficiency (dietary) anemia Current Visit: Yes Status: Chronic (7) Weight loss Current Visit: Yes Status: Acute (8) Coronary artery disease Current Visit: Yes Status: Chronic Qualifiers: Coronary Disease-Associated Artery/Lesion type: [place] artery [place] vs. transplanted heart: [place] heart Associated angina: without angina Qualified Description: Coronary artery disease involving [place] coronary artery of [place] heart without angina pectoris Qualifier Code(s): (I25.10) Atherosclerotic heart disease of [place] coronary artery without angina pectoris - Assessment / Plan Additional Assessment/Plan Details: Admit the patient. Breathing therapies with DuoNeb and albuterol nebulizers. IV steroids and antibiotics. The patient might benefit from continued antibiotics outpatient for COPD exacerbation prevention, although with history of arrhythmia this needs to be considered carefully. Stop antihypertensive therapy. His systolics are in the low 100s and I don't think he can tolerate continued blood pressure medication management. Continue aspirin therapy. We'll get a dietary consult. Given the abdominal pain, check ultrasound of abdomen. I will also check a troponin in case this is some sort of atypical cardiac presentation and check an EKG as well. Check CTA of chest tomorrow to make sure there is no blood clot. In the meantime DVT prophylaxis. Oxygen as necessary. I discussed with the patient CODE STATUS, and the patient wishes to be full code. Discussed with both the patient and his daughter, and I do not recommend CPR for this patient. I do not think he would survive the procedure and I think that the risks of CPR are greater than the benefits. Post hospital stay we do need to have the patient visit with vascular surgery in [place] to see if the patient is an endovascular candidate for AAA repair. He has not a candidate for open surgical repair due to end-stage lung disease. Aside from disagreeing on the CPR issue, the patient is in agreement with the plan as is his daughter.
[2017-05-22] MEDS ORDERED: CYANOCOBALAMIN 1000 MCG/1 ML VIAL SUBCUT ONE (16:32)
--- NOTE | 2017-05-22 18:04 | EKG ---
[address] [address] Measurements Intervals [place] Rate: 75 P: 249 DE: 194 QRS: 32 QRSD: 152 T: -76 QT: 449 QTc: 477 Interpretive Statements ELECTRONIC ATRIAL PACEMAKER RIGHT BUNDLE BRANCH BLOCK [120+ ms QRS DURATION, UPRIGHT V1, 40+ ms S IN I/aVL/V4/V5/V6] Compared to ECG 10/28/2016 23:27:11 Right bundle-branch block now present Intraventricular conduction delay no longer present Myocardial infarct finding now is borderline (with nubbin R-wave in aVF, and borderline duration in II and III) Electronically Signed On 05-23-17 09:09:44 MDT by Rajan Hoskins MD [email or web address]
[2017-05-22] MEDS ORDERED: ALBUTEROL SULFATE 2.5 MG/3 ML NEB PRN (18:40)
[2017-05-22] MEDS: traMADol 50 MG TABLET PO PRN (18:49)
[2017-05-22] MEDS: methylPREDNISolone 125 MG/2 ML VIAL IVP SCH (18:49)
[2017-05-22] MEDS: NORMAL SALINE 10 ML SYRINGE FLUSH IVP PRN (18:50)
[2017-05-22] MEDS: IPRATROPIUM/ALBUTEROL SULFATE 3 ML NEB NEB PRN (19:15)
--- NOTE | 2017-05-22 20:20 | PDOC ---
General Adult HPI - General Chief Complaint: Abdomen Pain Stated Complaint: weakness, shortness of breath, abdominal pain Date Seen by Provider: 05/22/17 Time Seen by Provider: 09:20 Source: POSITIVE: Patient, EMS, Other (Daughter) Exam Limitations: POSITIVE: No limitations Nurse's Notes Reviewed & Considered: Yes EMS Report Reviewed & Considered: Verbal - History of Present Illness Initial Comment: The patient is a 77-year-old male who is brought to the emergency room by the [place] [facility]. Patient states that this morning he became very weak and states he was not able to raise himself up off his couch. The patient called his daughter in [facility] and advised her of his weakness and daughter called the [facility] ambulance service, who brought the patient to the emergency room. Patient has a history of severe COPD, which is oxygen dependent. He reports that he has felt somewhat more short of breath over the last day or so. He has a past year of alcohol and tobacco abuse, but states he has not used any alcohol or tobacco products for the past 3 years. He is on oxygen continuously at home, reportedly 3 L per hour. He states he is also had some lower abdominal pain since last night and has had 3 or 4 episodes of vomiting since. No diarrhea. No melena, hematochezia, hematemesis, dysuria, hematuria or fevers. Have you received a tetanus shot in the past 10 years?: Unknown Body Location Affected: REPORTS: Chest, Abdomen Timing: REPORTS: Gradual, Getting Worse Duration: <24 hours (Approximately 12-15 hours) Severity: Moderate Quality: REPORTS: "Pain" (Lower abdominal pain), Tenderness (Lower abdomen) Context: REPORTS: None Modifying Factors: improves with: Breathing (More short of breath for the last day or so.), Vomiting (Last night), Lying down (Patient states his abdominal discomfort is exacerbated by lying flat) Similar Symptoms Previously: Yes (recurring exacerbations of COPD) Recent Care Received: REPORTS: Denies Any Prior Injuries Related to Current Complaint?: No - Patient Home Medications Home Medications: Home Medications Aspirin 650 mg PO DAILY #60 tablet 01/13/15 Amiodarone HCl [Pacerone] 200 mg PO DAILY #30 tablet 08/18/16 Atorvastatin Calcium [Lipitor] 40 mg PO BEDTIME #30 tablet 08/18/16 Escitalopram Oxalate [Lexapro] 10 mg PO EVERY AM #30 tablet 08/18/16 Fluticasone Propionate [Flonase Allergy Relief] 2 spr ARAVIND QD #1 spr 08/18/16 Pantoprazole Sodium [Protonix] 40 mg PO BID #60 tablet 08/18/16 Tamsulosin HCl [Flomax] 0.4 mg PO DAILY #30 cap 08/18/16 Tiotropium [place] [Spiriva] 18 mcg INH RTDAILY #30 inhaler 08/18/16 Lidocaine HCl [Lidocaine Hcl Viscous] 15 ml PO QID PRN #100 ml 03/15/17 Tramadol HCl 1 tab PO Q4H PRN #90 tab 03/15/17 Losartan Potassium 0.5 tab PO QD #45 tab 03/21/17 Albuterol/Ipratrop Neb Soln [Duoneb Neb Soln] 3 ml NEB QID 05/22/17 Cholecalciferol (Vitamin D3) [Vitamin D3] 2,000 unit PO DAILY 05/22/17 Cyanocobalamin/Folic Acid [Vitamin E72-Tfhyt Acid Tablet] 1 each PO DAILY Fluticasone/Salmeterol [Advair 500-50 Diskus] 1 each IH BID 05/22/17 Vitamin E 400 unit PO DAILY 05/22/17 - Patient Allergies Allergies/Adverse Reactions: Allergies Allergy/AdvReac Type Severity Reaction Status Date / Time Penicillins Allergy Intermediate RASH Verified 05/22/17 09:32 Past Medical History - heen HEENT History: Denies History Additional HEENT History: ORAL THRUSH Cardiovascular History: Previous [place], Pacemaker, Internal Defibrillator Additional Cardiovasular History: WA 6-7 YR AGO AND 20 YR AGO. ICD THAT ZAPS HIM FREQUENTLY Respiratory History: COPD, Shortness of Breath Additional Respiratory History: HOME O2 @ 4L/MIN PER NC Gastrointestinal History: Denies History Genitourinary History: Denies History Endocrine History: Denies History Musculoskeletal History: Other (please comment) Prosthesis or Implant: No Additional Musculoskeletal History: LEFT SHOULDER SURGERY Neurological History: Denies History Blood Disorders: Denies History Psychiatric History: Substance Abuse Additional Psychiatric History: QUIT ALL 3 YR AGO PER PT History of Sexually Transmitted Diseases: No Male Reproductive History: Denies History Cancer History: Lung In Past Year Been Physically Harmed or Verbally Threatened: No History of MDRO: No History of Other Communicable Diseases: No Tobacco Use: Former Smoker Alcohol Use: Sober Substance Use Type: None Previous Surgical History: Yes Type / Date of Surgery: CARDIAC STENTS, PACEMAKER, ICD Anesthesia Reactions: No Malignant Hyperthermia: No Significant Family History: No pertinent family hx Past Medical History Reviewed: Reviewed - No Changes ROS - Limitations ROS Limitations: No Limitations Constitution: REPORTS: Weakness Cardiovascular: REPORTS: Denies Cardiac Symptoms Respiratory: REPORTS: Shortness Of Breath Neurological: REPORTS: Denies Neuro Symptoms Gastrointestinal: REPORTS: Abdominal Pain, Nausea, Vomitting Endocrine: REPORTS: Denies Symptoms Musculoskeletal: REPORTS: Denies MS Symptoms Genitourinary: REPORTS: Denies Symptoms Eyes: REPORTS: Denies Symptoms ENT: REPORTS: Denies Symptoms Skin: REPORTS: Denies Skin Symptoms Lympathic: REPORTS: Denies Lympathic Symptoms Immunologic: POSITIVE: Denies Symptoms Psychiatric: POSITIVE: Denies Psych Symptoms General Adult Exam - General Appearance General Appearance: POSITIVE: Alert, Cooperative, No Evidence of Trauma, Mild Distress (Due to shortness of breath and abdominal discomfort). NEGATIVE: No Acute Distress - HEENT HEENT: POSITIVE: Head Inspection Nml, Eyes Inspection Nml, Ears Inspection Nml, Nose Inspection Nml, Oral/Dental Inspect. Nml, Pharynx Inspect. Nml, PERRL, EOMI - Pupils Pupil Size: 3 mm: Bilateral (PERRLA) - Neck Neck: POSITIVE: Normal Inspection, Thyroid Normal - Respiratory Respiratory: POSITIVE: Chest Non-Tender, Rhonchi. NEGATIVE: No Respiratory Distress (Oxygen saturation on 3 L on arrival was 73%), Breath Sounds Normal ( Some scattered rhonchi; breath sounds generally distant) - Cardiovascular Cardiovascular: POSITIVE: Regular Rate & Rhythm, No Murmur, No Gallop, PMI Normal Peripheral Pulses: Radial (R): 2+, Radial (L): 2+ - Abdomen Abdomen: Soft: (All Quadrants), Normal Bowel Sounds: (All Quadrants), Denies Tenderness: (RUQ), (LUQ), No Splenomegaly: (All Quadrants), No Hepatomegaly: ( All Quadrants), No Guarding: (All Quadrants), No Rebound: (All Quadrants), No Palpable Pulse: (All Quadrants), No Palpabale Mass: (All Quadrants), No Distention: (All Quadrants), No Rigidity: (All Quadrants), Tenderness Noted: ( RLQ), (LLQ) Additional Abdominal Details: Abdominal examination shows bowel sounds to be active. Patient expresses pain on palpation over the right and left lower abdominal areas. No pulsatile masses. No masses, organomegaly or rebound. 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 Patient has a pacemaker. There is a 4.2 cm abdominal aortic aneurysm just proximal to the aortic bifurcation. This study was compared with a CT scan of abdomen and pelvis with IV contrast done 12/28/2014; aneurysm was identified at that time which measured 3.6 cm. Chest x-ray shows "patchy mid lung airspace disease noted bilaterally ". Atelectasis and emphysematous lung changes. Lab Results Reviewed: Yes Lab Results:: Laboratory Results 05/22/17 05/22/17 05/22/17 Range/Units 09:46 10:12 10:30 WBC 13.42 H (4.8-10.8) 10^3/uL RBC 4.23 L (4.70-6.10) 10^6/uL Hgb 12.0 L (14.0-18.0) g/dL Hct 37.2 L (42.0-52.0) % MCV 87.9 (80-90) FL MCH 28.4 (27-31) PG MCHC 32.3 L (33-37) g/dL RDW Std Deviation 64.6 H (39-50) fL RDW Coeff of Clarence 20.3 H (11.5-14.5) % Plt Count 189 (140-350) 10*3/uL MPV 9.8 (7.4-12.2) FL Immature Gran % (Auto) 0.2 (0-5) % Neut % (Auto) 88.3 H (50-80) % Lymph % (Auto) 5.7 L (10-50) % [place] % (Auto) 5.4 (5-15) % Eos % (Auto) 0 (0-8) % Baso % (Auto) 0.4 (0-1) % Immature Gran # (Auto) 0.03 10*3/UL Neut # (Auto) 11.86 10*3/UL Lymph # (Auto) 0.76 10*3/uL [place] # (Auto) 0.72 (0.3-0.8) 10*3/UL Eos # (Auto) 0 10*3/UL Baso # (Auto) 0.05 10*3/UL WBC Morphology Comment See comments (NORM) Plt Morphology Comment Normal morphology (NORM) RBC Morph Comment Normal morphology (NORM) VBG pH 7.34 (7.32-7.42) VBG pCO2 50 (45-55) mmHg VBG HCO3 27 H (22-26) mmol/L VBG Base Excess 1 (-2-2) MMOL/L Sodium 142 (135-145) meq/L Potassium 4.8 (3.8-5.2) meq/L Chloride 104 (98-112) meq/L Carbon Dioxide 27 (23-33) meq/L Anion Gap 11 (5-20) BUN 21 (7-22) mg/dL Creatinine 0.8 (0.70-1.50) mg/dL Estimated GFR (>60 ml/min/1.73m(2)) BUN/Creatinine Ratio 26.25 H (6-20) Glucose 123 H (78-110) mg/dL Calculated Osmolality 297.0 H (267-292) mOsm/kg Lactic Acid (0.70-2.10) MMOL/L Calcium 9.7 (8.7-10.7) mg/dL Total Bilirubin 1.0 (0.3-1.2) mg/dL AST 38 (21-57) IU/L ALT 28 (21-72) IU/L Alkaline Phosphatase 60 (38-126) IU/L Troponin I (< 0.040) ng/mL Total Protein 7.6 (6.1-8.0) g/dL Albumin 3.5 (3.5-4.8) g/dL Globulin 4.1 (2.50-4.10) g/dL Albumin/Globulin Ratio 0.80 L (1.3-2.0) mg/g Amylase 48 (30-110) U/L Lipase < 10 L (23-300) IU/L Ur Collection Type Cath specimen Urine Color Yellow Urine Clarity Clear (CLEAR) Urine pH 5.5 (5.0-8.5) Ur Specific [place] 1.010 (1.005-1.030) Urine Protein Negative (NEG) mg/dl Urine Glucose (UA) Negative (NEG) mg/dL Urine Ketones Negative (NEG) Urine Occult Blood Negative (NEG) Urine Nitrate Negative (NEG) Urine Bilirubin Small (NEG) Urine Urobilinogen 1.0 (0.2) EU/dL Ur Leukocyte Esterase Negative (NEG) Ur Culture Indicated? Culture not set 05/22/17 05/22/17 Range/Units 13:26 14:00 WBC (4.8-10.8) 10^3/uL RBC (4.70-6.10) 10^6/uL Hgb (14.0-18.0) g/dL Hct (42.0-52.0) % MCV (80-90) FL MCH (27-31) PG MCHC (33-37) g/dL RDW Std Deviation (39-50) fL RDW Coeff of [place]rence (11.5-14.5) % Plt Count (140-350) 10*3/uL MPV (7.4-12.2) FL Immature Gran % (Auto) (0-5) % Neut % (Auto) (50-80) % Lymph % (Auto) (10-50) % [place] % (Auto) (5-15) % Eos % (Auto) (0-8) % Baso % (Auto) (0-1) % Immature Gran # (Auto) 10*3/UL Neut # (Auto) 10*3/UL Lymph # (Auto) 10*3/uL [place] # (Auto) (0.3-0.8) 10*3/UL Eos # (Auto) 10*3/UL Baso # (Auto) 10*3/UL WBC Morphology Comment (NORM) Plt Morphology Comment (NORM) RBC Morph Comment (NORM) VBG pH (7.32-7.42) VBG pCO2 (45-55) mmHg VBG HCO3 (22-26) mmol/L VBG Base Excess (-2-2) MMOL/L Sodium (135-145) meq/L Potassium (3.8-5.2) meq/L Chloride (98-112) meq/L Carbon Dioxide (23-33) meq/L Anion Gap (5-20) BUN (7-22) mg/dL Creatinine (0.70-1.50) mg/dL Estimated GFR (>60 ml/min/1.73m(2)) BUN/Creatinine Ratio (6-20) Glucose (78-110) mg/dL Calculated Osmolality (267-292) mOsm/kg Lactic Acid 1.4 (0.70-2.10) MMOL/L Calcium (8.7-10.7) mg/dL Total Bilirubin (0.3-1.2) mg/dL AST (21-57) IU/L ALT (21-72) IU/L Alkaline Phosphatase (38-126) IU/L Troponin I 0.015 (< 0.040) ng/mL Total Protein (6.1-8.0) g/dL Albumin (3.5-4.8) g/dL Globulin (2.50-4.10) g/dL Albumin/Globulin Ratio (1.3-2.0) mg/g Amylase (30-110) U/L Lipase (23-300) IU/L Ur Collection Type Urine Color Urine Clarity (CLEAR) Urine pH (5.0-8.5) Ur Specific [place] (1.005-1.030) Urine Protein (NEG) mg/dl Urine Glucose (UA) (NEG) mg/dL Urine Ketones (NEG) Urine Occult Blood (NEG) Urine Nitrate (NEG) Urine Bilirubin (NEG) Urine Urobilinogen (0.2) EU/dL Ur Leukocyte Esterase (NEG) Ur Culture Indicated? - Patient's Progress Pain Medication Addressed: POSITIVE: Yes (Morphine sulfate, 4 mg IV.) School/Work Release Addressed: POSITIVE: Not Applicable Re-Examine Time: 14:30 Re-Examine Comment: Patient given DuoNeb nebulizer treatment and maintained on oxygen supplementally; oxygen saturation 93% on discharge. Results of radiologic and laboratory studies discussed with patient and his daughter. Advised both that I'm not completely sure what the source of his abdominal pain is. In view of the possibility of pneumonia on chest x-ray 2 blood cultures were drawn and patient given Levaquin 750 mg IV. Case discussed with Dr. Brunson, hospitalist, who has admitted the patient for further evaluation and treatment. Status: POSITIVE: Improved, Re-Examined Quality Measure Initiative: CAP: POSITIVE: SaO2, Antibiotic(s), BC, CXR or CT - Consult Consult (If Yes, Name of Consulting MD & Time Called): Yes (Dr. Brunson, hospitalist, [id number]) Consulting MD will see pt:: [place]ITIVE[place] [facility] [place] Counseled: POSITIVE: Patient, Family, RE: Lab Results, RE: Radiology Results, RE : DX, RE: Need for F/U Patient Care Time - Estimated PCT Patient Care Time (In Minutes): 70 Vital Signs - Recent Vital Signs Vital Signs: Vital Signs (Last 8 hours) Temp Pulse Pulse Resp BP BP Pulse Ox 05/22/17 15:27 98 F 75 101/54 97 05/22/17 13:44 98 F 75 101/54 94 05/22/17 12:15 76 16 106/59 92 - VS Reviewed Vital Signs Reviewed: Yes Discharge Clinical Impression: Abdominal pain, Nausea and vomiting, COPD with acute exacerbation Discharge Disposition: Admit to Inpatient Condition: Fair Date Decision to Admit to Inpatient: 05/22/17 Time Decision to Admit to Inpatient: 14:00
[2017-05-22] MEDS ORDERED: ACETAMINOPHEN 325 MG TABLET PO PRN ×2 (20:38→20:40)
[2017-05-22] MEDS ORDERED: ATORVASTATIN 40 MG TABLET PO SCH (21:00)
--- NOTE | 2017-05-22 21:14 | DI ---
HISTORY: Hypoxia. COPD. COMPARISON: CT of the chest from 10/29/2016. TECHNIQUE: CTA of the chest was performed with contrast and submitted for interpretation. FINDINGS: There is no pulmonary embolus. The main pulmonary artery is top normal in caliber. Marked emphysematous changes with scattered areas of architectural distortion, scarring, and/or atele ctasis are again seen throughout both lungs. The acute inflammatory changes at the left lung base newman ve decreased in severity when compared to 10/29/2016. However, considering the extensive underlying layla ng pathology, regular close follow-up is recommended to monitor additional areas of apparent atelecta sis/scarring. Reticular areas of concern are noted in the lateral subpleural areas of the bilateral mid to upper lungs. Scattered areas of nonobstructive debris are noted in the trachea and right bron chus. No new acute inflammatory pulmonary changes are seen, though debris in the airway suggests mehdi ceptibility to aspiration. The heart is mildly enlarged without evidence of pericardial effusion or thickening. The aorta is normal in caliber. Sludge is noted in otherwise unremarkable gallbladder. The pancreas is atrophic. There is a small h iatal hernia. Extensive atherosclerotic calcifications are noted. The partially imaged kidneys are grossly unremarkable. IMPRESSION: 1. No pulmonary embolus. 2. Extensive emphysematous changes as described with decreased severity of left lower lung acute infl ammatory changes. Regular close follow-up is recommended as described. 3. No new acute inflammatory pulmonary changes, though debris within the trachea and a small hiatal h ernia suggests probable chronic/repeat aspiration. NOTIFICATION: The above findings were phoned to Margoth Cheatham in the ER Department on 05/22/2017 at 11:17 pm EST.
[2017-05-22] MEDS: DOXYCYCLINE HYCLATE 100 MG CAPSULE PO SCH (22:31)
[2017-05-22] MEDS: PANTOPRAZOLE 40 MG TABLET PO SCH (22:31)
[2017-05-23] MEDS: NORMAL SALINE 10 ML SYRINGE FLUSH IVP PRN ×3 (01:55→19:37)
[2017-05-23] MEDS: methylPREDNISolone 125 MG/2 ML VIAL IVP SCH ×4 (01:55→19:37)
[2017-05-23 05:15] LABS: BASOPHILS # (AUTO) 0 10*3/UL; BASOPHILS % (AUTO) 0 % (0-1); EOSINOPHILS # (AUTO) 0 10*3/UL; EOSINOPHILS % (AUTO) 0 % (0-8); Hematocrit [HCT] 34.2 % (42.0-52.0); Hemoglobin [HGB] 10.8 g/dL (14.0-18.0); LYMPHOCYTES # (AUTO) 0.36 10*3/uL; MEAN CORPUSCULAR HEMOGLOBIN 28.1 PG (27-31); MEAN CORPUSCULAR HGB CONC 31.6 g/dL (33-37); MEAN CORPUSCULAR VOLUME 88.8 FL (80-90); MEAN PLATELET VOLUME 10.5 FL (7.4-12.2); MONOCYTES # (AUTO) 0.07 10*3/UL (0.3-0.8); MONOCYTES % (AUTO) 0.7 % (5-15); NEUTROPHILS # (AUTO) 10.17 10*3/UL; NEUTROPHILS % (AUTO) 95.7 % (50-80); RED BLOOD COUNT 3.85 10^6/uL (4.70-6.10)
[2017-05-23 05:25] LABS: BLOOD UREA NITROGEN 23 mg/dL (7-22); BUN/CREATININE RATIO 38.33 (6-20)
[2017-05-23 05:42] LABS: PLATELET MORPHOLOGY COMMENT NORMAL MORPHOLOGY (NORM); RBC MORPHOLOGY COMMENT SEE COMMENTS (NORM); WBC MORPHOLOGY COMMENT NORMAL MORPHOLOGY (NORM)
[2017-05-23] MEDS: IPRATROPIUM/ALBUTEROL SULFATE 3 ML NEB NEB PRN ×4 (06:53→19:32)
[2017-05-23] MEDS: TAMSULOSIN 0.4 MG CAPSULE PO SCH (08:13)
[2017-05-23] MEDS: ESCITALOPRAM 10 MG TABLET PO SCH (08:13)
[2017-05-23] MEDS: CHOLECALCIFEROL 1000 IU TABLET PO SCH (08:13)
[2017-05-23] MEDS: DOXYCYCLINE HYCLATE 100 MG CAPSULE PO SCH (08:13)
[2017-05-23] MEDS: ENOXAPARIN SODIUM 40 MG/0.4 ML SYRINGE SUBCUT SCH (08:14)
[2017-05-23] MEDS: AMIODARONE 200 MG TABLET PO SCH (08:14)
[2017-05-23] MEDS: FOLIC ACID 1 MG TABLET PO SCH (08:14)
[2017-05-23] MEDS: PANTOPRAZOLE 40 MG TABLET PO SCH ×2 (08:14→21:04)
[2017-05-23] MEDS: ASPIRIN 325 MG TABLET PO SCH (08:14)
[2017-05-23] MEDS: FLUTICASONE PROPIONATE 16 GRAM (120 SPRAYS / BOTTLE) ENOS SCH (08:14)
[2017-05-23] MEDS ORDERED: CYANOCOBALAMIN PO SCH (09:00)
[2017-05-23] MEDS ORDERED: LOSARTAN 25 MG TABLET PO SCH (09:00)
[2017-05-23] MEDS ORDERED: FOLIC ACID PO SCH (09:00)
[2017-05-23] MEDS: cefTRIAXone Inj 2 GM in Sodium Chloride 0.9% 100 ML IV SCH (10:01)
[2017-05-23] MEDS ORDERED: NORMAL SALINE 500ml Bag IV ONE (11:35)
--- NOTE | 2017-05-23 12:58 | DI ---
GALLBLADDER AND LIVER ULTRASOUND, 05/23/2017 7:00 AM: Clinical History: Right upper quadrant pain. Previous Exam: None at this facility. Technique: Scans are performed through the right upper quadrant in multiple projections. The patient was rolled from side to side and the gallbladder was balloted with the probe to facilitate visualizat ion of small gallstones. The gallbladder is well distended and has a normal wall thickness. There are no gallstones but there is biliary "sludge" that changes position with manipulation of the patient's position. There is no Mu rphy's sign. The common bile duct measures 5 mm. The pancreas is visualized from the head to the body and is normal. The liver and IVC are normal. The right kidney is normal in size and there is no hydr onephrosis. However, there are 2 echogenic foci located in upper and lower pole calyces that cause ac oustical shadowing. These would be consistent with nonobstructing renal calculi measuring approximate ly 3-5 mm in diameter. The proximal and mid portions of the abdominal aorta are normal. There is a fu siform aneurysm of the distal abdominal aorta measuring about 40 mm in diameter. There may be a mural thrombus. Gas obscures this portion of the aorta. Readin. There is biliary "sludge" in the gallbladder but the gallbladder is otherwise normal. There is no a sign. 2. The right kidney shows no hydronephrosis but there are echogenic foci in upper and lower pole dmitry yces. These have acoustical shadowing change is and may represent nonobstructing renal calculi in the range of 3-5 mm in diameter. 3. There is a fusiform abdominal aortic aneurysm measuring about 40 mm in diameter and there may be a mural thrombus within the aneurysm. 4. The liver, pancreas, and IVC are normal.
--- NOTE | 2017-05-23 15:45 | PDOC(PROG) ---
Date and Time of Service: 05/23/2017, 1545 Interval History: No complains of chest pain. Cough persists. His daughter states that he often coughs when he eats or drinks. No nausea or vomiting. Abdominal pain has subsided. Still requiring 7 L of oxygen. No dizziness and no syncopal symptoms today. Does get at home. Objective : Data - Labs CBC and BMP: 05/23/17 04:15 05/23/17 04:15 Labs - Last 24 Hours: Laboratory Results 05/23/17 Range/Units 04:15 WBC 10.62 (4.8-10.8) 10^3/uL RBC 3.85 L (4.70-6.10) 10^6/uL Hgb 10.8 L (14.0-18.0) g/dL Hct 34.2 L (42.0-52.0) % MCV 88.8 (80-90) FL MCH 28.1 (27-31) PG MCHC 31.6 L (33-37) g/dL RDW Std Deviation 64.5 H (39-50) fL RDW Coeff of Clarence 20.1 H (11.5-14.5) % Plt Count 153 (140-350) 10*3/uL MPV 10.5 (7.4-12.2) FL Immature Gran % (Auto) 0.2 (0-5) % Neut % (Auto) 95.7 H (50-80) % Lymph % (Auto) 3.4 L (10-50) % [place] % (Auto) 0.7 L (5-15) % Eos % (Auto) 0 (0-8) % Baso % (Auto) 0 (0-1) % Immature Gran # (Auto) 0.02 10*3/UL Neut # (Auto) 10.17 10*3/UL Lymph # (Auto) 0.36 10*3/uL [place] # (Auto) 0.07 L (0.3-0.8) 10*3/UL Eos # (Auto) 0 10*3/UL Baso # (Auto) 0 10*3/UL WBC Morphology Comment Normal morphology (NORM) Plt Morphology Comment Normal morphology (NORM) RBC Morph Comment See comments (NORM) Sodium 138 (135-145) meq/L Potassium 4.4 (3.8-5.2) meq/L Chloride 105 (98-112) meq/L Carbon Dioxide 25 (23-33) meq/L Anion Gap 8 (5-20) BUN 23 H (7-22) mg/dL Creatinine 0.6 L (0.70-1.50) mg/dL Estimated GFR Merchandising Representative BUN/Creatinine Ratio 38.33 H (6-20) Glucose 142 H (78-110) mg/dL Calculated Osmolality 291.0 (267-292) mOsm/kg Calcium 9.1 (8.7-10.7) mg/dL - Imaging CT Scan Status: Image Reviewed by Me (CT scan this chest shows what looks like diffuse inflammatory changes and left lower base that could be consistent with pneumonia , and chronic emphysematous changes with chronic scarring on the right side.) - EKG Data -: EKG Interpreted by Me - EKG Data EKG Interpretation: Other (Paced rhythm.) Objective : Exam - General General Appearance: No Acute Distress, Cooperative Additional General Exam Details: Vital Signs - Last Taken Temperature 97.9 F 05/23/17 11:23 Pulse Rate 78 05/23/17 11:23 Respiratory Rate 18 05/23/17 11:23 Blood Pressure 89/43 05/23/17 11:23 Pulse Ox 96 05/23/17 11:23 Still requiring 7 L of oxygen - Eye Eye Exam: No Scleral Icterus - Respiratory Respiratory Exam: Breathing Non Labored, Decreased Breath Sounds - Cardiovascular Cardiovascular Exam: RRR, No Murmur, No Clicks, No Gallops, No Rubs, No JVD - GI/Abdominal GI/Abdominal Exam: Normal Bowel Sounds, Non Tender, Non Distended, Soft - Extremities Extremities Exam: No Edema Present, No Cyanosis Present, Clubbing Present - Neurological Neurological Exam: Alert, Oriented x 3, No Facial Droop, Speech Intact / Clear, Moves All Extremities Equally Assessment and Plan - Patient Problems (1) Aspiration pneumonia Current Visit: Yes Status: Acute Qualifiers: Aspiration pneumonia type: due to regurgitated food Laterality: left Lung location: lower lobe of lung Qualified Description: Aspiration pneumonia of left lower lobe due to regurgitated food Qualifier Code(s): ( J69.0) Pneumonitis due to inhalation of food and vomit (2) COPD exacerbation Current Visit: Yes Status: Acute (3) Abdominal pain Current Visit: Yes Status: Acute Qualifiers: Abdominal location: right upper quadrant Qualified Description: Right upper quadrant abdominal pain Qualifier Code(s): (R10.11) Right upper quadrant pain (4) Cachexia Current Visit: Yes Status: Acute (5) Failure to thrive in adult Current Visit: Yes Status: Chronic (6) Ventricular arrhythmia Current Visit: Yes Status: Chronic (7) Vitamin B12 deficiency (dietary) anemia Current Visit: Yes Status: Chronic (8) Weight loss Current Visit: Yes Status: Acute (9) Coronary artery disease Current Visit: Yes Status: Chronic Qualifiers: Coronary Disease-Associated Artery/Lesion type: hoh artery [place] vs. transplanted heart: hoh heart Associated angina: without angina Qualified Description: Coronary artery disease involving hoh coronary artery of hoh heart without angina pectoris Qualifier Code(s): (I25.10) Atherosclerotic heart disease of hoh coronary artery without angina pectoris - Assessment / Plan Additional Assessment/Plan Details: I think the abdominal pain is likely multifactorial. Probably related to both what appears to be a left-sided chronic aspiration pneumonia and unclear whether or not the patient had biliary dyskinesia, but he does have sludge on his ultrasound. For now, the plan will be to treat the acute on chronic aspiration pneumonia with clindamycin and Rocephin, continue steroids for COPD exacerbation. Continue breathing therapies. Hold off on any further workup of the gallbladder until the patient has any further symptoms. There does not appear to be any acute indication to remove the gallbladder at this point. Swallow study and PT and OT valves. Continue oxygen therapy as necessary. In terms of the AAA, I did discuss with vascular surgery in [place], and they like to follow the aortic aneurysms to 5 cm prior to evaluating for endovascular repair. The recommendation was to consider ultrasounds every 3-4 months for evaluation.
[2017-05-23] MEDS: Clindamycin 900mg (Premix) 900 MG in Dextrose 1 BAG IV SCH (19:37)
[2017-05-23] MEDS: traMADol 50 MG TABLET PO PRN (19:37)
[2017-05-23] MEDS ORDERED: LET SOLUTION 40MG/0.5MG/5MG/ML - 3 ML TOPICAL ONE (21:27)
[2017-05-23] MEDS ORDERED: MAGNESIUM 400 MG/5 ML - 30 ML (MILK OF MAGNESIA) PO PRN (22:27)
[2017-05-23] MEDS ORDERED: MAGNESIUM 400 MG/5 ML - 30 ML (MILK OF MAGNESIA) PO ONE (22:27)
[2017-05-24] MEDS: methylPREDNISolone 125 MG/2 ML VIAL IVP SCH ×3 (01:20→13:41)
[2017-05-24] MEDS: Clindamycin 900mg (Premix) 900 MG in Dextrose 1 BAG IV SCH ×2 (02:50→11:53)
[2017-05-24] MEDS: NORMAL SALINE 10 ML SYRINGE FLUSH IVP PRN (02:51)
[2017-05-24] MEDS: IPRATROPIUM/ALBUTEROL SULFATE 3 ML NEB NEB PRN ×3 (06:39→19:10)
[2017-05-24] MEDS: ESCITALOPRAM 10 MG TABLET PO SCH (06:55)
[2017-05-24] MEDS: cefTRIAXone Inj 2 GM in Sodium Chloride 0.9% 100 ML IV SCH (09:48)
[2017-05-24] MEDS: ENOXAPARIN SODIUM 40 MG/0.4 ML SYRINGE SUBCUT SCH (09:48)
[2017-05-24] MEDS: TAMSULOSIN 0.4 MG CAPSULE PO SCH (09:49)
[2017-05-24] MEDS: AMIODARONE 200 MG TABLET PO SCH (09:49)
[2017-05-24] MEDS: ASPIRIN 325 MG TABLET PO SCH (09:49)
[2017-05-24] MEDS: CHOLECALCIFEROL 1000 IU TABLET PO SCH (09:49)
[2017-05-24] MEDS: FOLIC ACID 1 MG TABLET PO SCH (09:49)
[2017-05-24] MEDS: PANTOPRAZOLE 40 MG TABLET PO SCH (09:49)
[2017-05-24] MEDS: POLYETHYLENE GLYCOL 3350 17 GM POWDER PO SCH (09:49)
[2017-05-24] MEDS: FLUTICASONE PROPIONATE 16 GRAM (120 SPRAYS / BOTTLE) ENOS SCH (09:50)
--- NOTE | 2017-05-24 10:52 | PTI REPORT ---
Thank you for the referral of Maverick Olson. He was seen on 05/23/17 for an inpatient evaluation secondary to weakness. SUBJECTIVE: The patient is a 77-year-old male. The patient presents with abdominal pain with vomiting secondary to chronic COPD, specifically end stage COPD. The patient lives alone in a single level house. The patient eats daily at 12:00 PM and is delivered meals through [employer]. The patient is on 4-5 liters of oxygen when at home; at the hospital the patient is on 8 liters of oxygen. The patient does not use an assistive device at home. The patient cannot walk to the bathroom without taking a break and he reports dizziness if he does not take a break. 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 PAST MEDICAL HISTORY: Past medical history can be found in the patient's medical record. OBJECTIVE FINDINGS: General observations: The patient was alert and oriented. He was sitting up in bed on 8 liters of oxygen. Bed mobility: The patient was able to transfer to sitting edge of bed with stand by assist. The patient demonstrated good static and dynamic balance. Strength: Lower extremity manual muscle testing revealed strength of 4/5, indicating general strength. Transfers: The patient required contact guard assist to transfer from sit to stand and was able to stand x2 minutes. The patient's oxygen saturation dropped to 80% but with breathing education the patient's oxygen saturation went back up to 90%. Ambulation: The patient was able to walk 25 feet; however, upon sitting oxygen saturation dropped to 77%. ASSESSMENT: The patient has fair rehab potential secondary to COPD and comorbidities. Problem List: Decreased endurance Decreased activity tolerance Decreased ability to perform transfers Physical Therapy Goals: To be met by discharge from inpatient: Patient will have increased ability to perform transfers. Patient will increase ability to ambulate independently. Patient will improve seated and standing balance. TREATMENT PLAN: Patient will be seen B.I.D during the week and one time per day over the weekend as an inpatient to address the above goals and objectives. INITIAL TREATMENT: Treatment today consisted of the initial evaluation activities only. Following treatment the patient was left with occupational therapist. Dictated by: IMAN Kc Supervised by: CHRISSY FloresD
--- NOTE | 2017-05-24 10:53 | DI ---
MODIFIED ESOPHAGRAM, 05/24/2017 7:00 AM : Clinical History: Aspiration pneumonia. Previous Exam: None at this facility. A "time out" session was performed to verify the patient's name and date of prior to initiating this procedure. This examination is performed in conjunction with Occupational Therapy to evaluate t he patient's swallowing function. Different texture grades of barium impregnated substances were offe red to the patient, ranging from thin liquids to thick liquids to solids. Please see the occupational therapist's report. Deglutition is normal and the esophagus strips well. There is no evidence of aspiration while swallow ing thin liquids (thin barium), thick liquids (applesauce), and solids (chopped peaches). There is no pooling of material in the pyriform sinuses. There is no Zenker's diverticulum. Spot films of the ce rvical esophagus are normal. READING: Normal esophagram. There is no evidence of aspiration.
--- NOTE | 2017-05-24 11:15 | OTI REPORT ---
Thank you for the referral of Maverick Olson. He was seen on 05/23/17 for an occupational therapy inpatient evaluation secondary to weakness. SUBJECTIVE: The patient is a 77-year-old male who is being seen secondary to abdominal pain with vomiting, end stage COPD, and swallowing difficulties. 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 The patient state that his significant other just approximately three weeks ago. She was living at the [facility] but he does state that he misses her quite a bit. The patient typically is on 4 liters of oxygen at home and was completing everything independently. He states at times his oxygen would be in the 60s or 70s and if he got it into the 80s, he thought he was doing well at home. The patient does get short of breath very easily. The patient does have an electric golf cart that he says he will ride around in town at times. The patient does have a big concentrator at home as well as a smaller oxygen tank when he goes out on trips. The patient states he just recently started getting [employer] but sometimes he throws them up as he has a hard time eating them. In his home the patient has a tub/shower combination, grab bars by the toilet, a raised toilet seat, a hand held shower hose, and a shower chair. Prior to admission the patient reports that he was doing all of his laundry, hardly cooking for himself, and cleaning. He states his friend helps with groceries and driving for long periods of time. The patient did state that the [facility] contacted him and they will be sending someone over for one hour a week to help with laundry and cleaning as well as vacuuming and scrubbing the floor. PAST MEDICAL HISTORY: Past medical history can be found in the patient's medical record. OBJECTIVE FINDINGS: Bed mobility: Today the patient was able to come from supine to sit with increased time. Oxygen: While sitting edge of bed the patient's oxygen was down to 78%. Before we started too many activities, the therapist instructed the patient in pursed lipped breathing by breathing in through the nose x2 seconds and out the mouth x4 seconds. His oxygen was able to get up above 90% after three minutes of pursed lipped breathing. Range of motion: The patient has good range of motion in bilateral upper extremities. Strength: Strength in shoulder flexion was 4/5, shoulder extension was 4+/5, shoulder abduction was 3+/5, shoulder adduction was 4/5, internal/external rotation were 3+/5, elbow flexion/extension were 3+/5, and wrist flexion/ extension was 4/5. Activities of daily living: At this time the patient is independent with eating. The patient is independent with grooming after set up. When dressing lower extremities, the patient was able to don and doff socks independently. He demonstrates good flexibility. The patient requires min assist for toilet transfers as he does tend to furniture walk. The patient also had his oxygen saturation drop to 74% when completing a toilet transfer, even on 8 liters of oxygen. We had the patient complete pursed lipped breathing and after 5 minutes he was able to bring his oxygen saturation back up to the 90s. Comprehension/Social interaction/Memory: The patient's comprehension is somewhat questionable as throughout the session today the patient forgot that pursed lipped breathing would assist him in breathing better. The patient tends to do well in social interaction. His memory may be questionable. ASSESSMENT: The patient becomes very low on oxygen and at times has stated he gets bad headaches and gets dizzy from this. The pursed lipped breathing seemed to help today and we will educate the patient on other techniques as well. The patient' s daughter was present during the session today and she stated that the patient' s ex- will more than likely be helping the patient at his home as they know he is probably not able to fully take care of himself at this point in time. Problem List: Patient will require education on energy conservation Possible cognitive deficits Decreased safety awareness Decreased ability to perform functional transfers Generalized weakness Decreased activity tolerance Short-Term Goals: To be met by discharge from inpatient: Patient will complete a cognitive screening and possible assessment to assess his cognitive abilities for home. Patient will improve upper extremity strength to 4+/5 to improve strength for ADLs and functional transfers. Patient will learn three energy conservation techniques to implement daily to conserve his energy and to keep his oxygen levels above 90%. Patient will be able to complete a shower using energy conservation techniques and shower self safely with supervision. Long-Term Goals: To be met following discharge from inpatient: Patient will return home with 24-hour assistance. TREATMENT PLAN: Patient will be seen B.I.D during the week and one time per day over the weekend as an inpatient to address the above goals and objectives. INITIAL TREATMENT: Treatment today consisted of the initial evaluation followed by the patient completing ADLs while sitting edge of bed followed by upper extremity active range of motion exercises. FELI
--- NOTE | 2017-05-24 11:37 | OTI REPORT ---
Thank you for the referral of Maverick Olson. He was seen on 05/23/17 for an occupational therapy swallow evaluation. SUBJECTIVE: The patient is a 77-year-old male. The patient reports that he does struggle with some foods; mainly having difficulty swallowing the food and continuing with the swallow. He states he doesn't feel like he chokes or coughs frequently , but he just doesn't have an appetite and he is losing a lot of weight. PAST MEDICAL HISTORY: Past medical history can be found in the patient's medical record. OBJECTIVE FINDINGS: Pre-Swallow Assessment: Alertness and responsiveness: The patient was alert and responsive. Responses: The patient demonstrated reliable yes and no responses. Facial symmetry: The patient demonstrated good facial symmetry and a volitional dry swallow. Following commands: The patient does follow two step directions. Cough: The patient's cough is weak and somewhat gurgley. Nutrition and intake method over the last 24-hours: The patient has started to get Meals on Wheels, but he typically has not been taking care of himself per his report. He is not cooking a lot, but he does drink Pepsi throughout the day. Respiratory status: The patient's respiratory status at this time is poor. Oxygen: The patient is on 8 liters of oxygen; however, his oxygen saturation still tends to drop to 70-80% very easily. Secretions: The patient is able to handle his own secretions. Temperature: The patient's temperature was within normal limits. Dentition: The patient has dentures on the top and bottom and he states these bother him. He feels like this is part of the reason why he doesn't eat very much, because the bottom dentures move around quite a bit. Tongue range of motion/Lateralization/Strength: The patient has good tongue range of motion and lateralization of the tongue. Strength of the tongue is within normal limits. Head control/Jaw mobility: Head control and jaw mobility were within normal limits. Drooling: The patient does not demonstrate drooling: Sensation: The patient has intact sensation of the buccal, labial, and lingual areas. Gag reflex: The patient's gag reflex is intact. General observations: The patient has a small frame with minimal muscle mass. Feeding Assessment: The patient does demonstrate an inconsistent automatic swallow. The patient tends to start swallowing, but he does have a delay of the last initiation of the swallow. Laryngeal elevation is slightly impaired. He has approximately 75 % of full range. Today the patient was assessed with pureed, mechanical soft, and regular type food textures as well as thin liquids. We started out with water and the patient had good bolus control. His swallow transit time was delayed. The patient tended to take two swallows and on the third swallow he had to think about initiating the swallow. Laryngeal elevation is approximately 75%. He was negative for any signs of external aspiration. We then went on to pureed foods. He was again within normal limits for bolus control, swallow transit time, laryngeal elevation was 75%, and he was negative for a cough. The patient then tried watermelon in the mechanical soft realm. The patient was able to initiate the swallow without external signs of difficulty. When we came to crackers, bread, and meat, the patient had increased difficulty with mastication and bolus control. He chewed quite a bit before he could get the food down to a level of swallowing well. The patient needed increased swallow transit time and number of swallows were multiple. Laryngeal elevation remained at 75%. The patient did not cough but it was a struggle for him to chew the regular type food items, especially the bread. The patient was negative for pocketing or drooling. The patient reports medications are difficult if he tries to take them all at once; however, if he only takes a couple at a time he does better. During the assessment the patient was sitting upright in a chair. His rate of swallow was appropriate for pureed and mechanical soft food items, but with regular food items he needed increased time and his rate of swallow was slower. His swallow appeared to be okay with thin liquid, pureed, and mechanical food items. It is questionable with regular food items. ASSESSMENT: In speaking with Dr. Alvaardo, the patient's x-rays are indicating that he may be having some possible aspiration pneumonia. He may be silently aspirating and with his severe case of COPD, his struggle to breathe, and the weakness that he is demonstrating he may not be showing signs of external aspiration at this point in time. Dr. Alvarado and the therapist agree that a modified barium swallow study in the morning would be beneficial. After the bedside swallow, we are going to change the patient to a mechanical soft diet. He can still remain on thin liquids. He should stay upright for all meals and remain upright for 30 minutes following meals. A video fluoroscopy evaluation will be completed tomorrow. Dr. Alvarado was informed of the results and recommendations. SWALLOW GOALS: Patient will be able to eat 100% of selected diet without external signs of aspiration. Patient will participate in a modified barium swallow study to continue looking at higher level diet and to see if thin liquids are safe for him to swallow. Patient will use correct positioning 100% of the time when observed by occupational therapy. INITIAL TREATMENT: Treatment today consisted of the swallow evaluation activities only. FELI
--- NOTE | 2017-05-24 12:02 | OTI REPORT ---
Thank you for the referral of Maverick Olson. He was seen on 05/24/17 for a modified barium swallow study. SUBJECTIVE: The patient is a 77-year-old male. The patient is being assessed today secondary to how his lung x-ray looked. Dr. Alvarado would like to make sure that the patient is not aspirating with his foods or liquids. PAST MEDICAL HISTORY: Past medical history can be found in the patient's medical record. OBJECTIVE FINDINGS: Today during the modified barium swallow study, the patient did well with lip closure. He did have some difficulty chewing his food as his bottom dentures do not fit him appropriately. He had good AP transit. He did not demonstrate pocketing or holding food in the lateral regions. He did not demonstrate spillage of food or liquid. He had good tongue base retraction. He had slight stasis and coating. His swallow trigger was slightly delayed but overall, once it did trigger the swallow he did well. The patient does demonstrate some mild piecemeal deglutition. The patient was negative for oral nasal regurgitation. Today the patient had within functional limits hyoid thyroid approximation, hyoid protraction, and 90% of laryngeal elevation. The patient was negative for penetration and aspiration with thin liquid, with peaches, and with pudding. The patient did have difficulty with chewing today as he did not bring his bottom dentures with him to the assessment. The patient does have a slight decrease in pharyngeal squeeze, but within two to three swallows, he was able to clear the vallecular as well as the piriformis sinuses. The patient had minimal vallecular and piriformis residuals. The patient seemed to do well with his upper esophageal opening. Dysfunction: Functionally the patient has difficulty with swallowing the bolus all in one swallow; however, the patient is not demonstrating aspiration. The patient does tend to have more difficulty in the oral region with regular food items vs. pureed and mechanical soft food items. ASSESSMENT: The patient is not demonstrating aspiration of thin liquid. He does well with pureed and mechanical soft foods. He sometimes needs two to three swallows to clear the bolus but he does clear nicely. With regular food items, he functionally is having difficulty with mastication and in mouth functional abilities secondary to his dentures and poor fit of the dentures. RECOMMENDATIONS: 1. Continue to have patient on thin liquids. 2. The patient should be placed on a mechanical soft diet. 3. The patient should sit upright for all meals. 4. The patient should sit for 20-30 minutes after meals to make sure that food does not regurgitate up the esophageal region. 5. The patient would benefit from another consult for his dentures to see if they can get them to fit him more appropriately, especially the bottom dentures. INITIAL TREATMENT: Treatment today consisted of the modified barium swallow study only. ANIYAD
--- NOTE | 2017-05-24 15:35 | PDOC(PROG) ---
Date and Time of Service: 05/24/2017, 1532 Interval History: no complaints of chest pain, nausea, or vomiting or abdominal pain. wants to go home. oxygen is down to 5 LPM at rest, desaturates with activity. does not want swing bed. Objective : Data - Labs CBC and BMP: 05/23/17 04:15 05/23/17 04:15 Objective : Exam - General General Appearance: No Acute Distress, Cooperative Additional General Exam Details: Vital Signs - Last Taken Temperature 97.8 F 05/24/17 11:48 Pulse Rate 76 05/24/17 11:48 Respiratory Rate 19 05/24/17 11:48 Blood Pressure 106/51 05/24/17 11:48 Pulse Ox 90 05/24/17 11:48 - Eye Eye Exam: No Scleral Icterus - ENT ENT Exam: Mucous Membranes Moist - Respiratory Respiratory Exam: Breathing Non Labored, Decreased Breath Sounds - Cardiovascular Cardiovascular Exam: RRR, No Murmur, No Clicks, No Gallops, No Rubs, No JVD - GI/Abdominal GI/Abdominal Exam: Normal Bowel Sounds, Non Tender, Non Distended, Soft - Extremities Extremities Exam: No Edema Present, No Cyanosis Present, Clubbing Present - Neurological Neurological Exam: Alert, Oriented x 3, No Facial Droop, Speech Intact / Clear, Moves All Extremities Equally Assessment and Plan - Patient Problems (1) Aspiration pneumonia Current Visit: Yes Status: Acute Qualifiers: Aspiration pneumonia type: due to regurgitated food Laterality: left Lung location: lower lobe of lung Qualified Description: Aspiration pneumonia of left lower lobe due to regurgitated food Qualifier Code(s): ( J69.0) Pneumonitis due to inhalation of food and vomit (2) COPD exacerbation Current Visit: Yes Status: Acute (3) Abdominal pain Current Visit: Yes Status: Acute Qualifiers: Abdominal location: right upper quadrant Qualified Description: Right upper quadrant abdominal pain Qualifier Code(s): (R10.11) Right upper quadrant pain (4) Cachexia Current Visit: Yes Status: Acute (5) Failure to thrive in adult Current Visit: Yes Status: Chronic (6) Ventricular arrhythmia Current Visit: Yes Status: Chronic (7) Vitamin B12 deficiency (dietary) anemia Current Visit: Yes Status: Chronic (8) Weight loss Current Visit: Yes Status: Acute (9) Coronary artery disease Current Visit: Yes Status: Chronic Qualifiers: Coronary Disease-Associated Artery/Lesion type: [place] artery [place] vs. transplanted heart: [place] heart Associated angina: without angina Qualified Description: Coronary artery disease involving [place] coronary artery of [place] heart without angina pectoris Qualifier Code(s): (I25.10) Atherosclerotic heart disease of [place] coronary artery without angina pectoris - Assessment / Plan Additional Assessment/Plan Details: I still think this is an aspiration pneumonia with COPD exacerbation, but no signs of aspiration on studies today. Slow chewing and mechanical soft diet recommended continue antibiotics and steroids, but convert to PO dosing if tolerating this tomorrow, home with higher flow oxygen and increased oxygen with activities. overall, end stage COPD with pulmonary cachexia as well--may need to consider daily antibiotic like zithromax to help prevent exacerbations, but has to be weighed against risk of arrhythmia reimage AAA every 4 months with ultrasound per vascular surgery recommendations. if it gets to 5.0 CM, then referral for possible endovascular repair if dyskinesia symptoms recur, consider HIDA, but not going to do during this hospital stay. 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 offered swing bed-- patient refused.
--- NOTE | 2017-05-24 17:29 | PT.PROG ---
Progress Note Progress Note: S: Maverick reports experiencing stomach pain and indigestion after eating a large meal for breakfast and also reports feeling dizzy, but agreed to exercise. O: Maverick's resting SpO2 was between 80-90 ml javier 5 L O2. Upon sitting on EOB, Maverick's O2 stats declined to between 70 and 80 ml javier. His O2 normalized upon receiving cuing to breathe. Maverick needed CGA to stand and walked with AD 100 feet with 5 L O2. Maverick performed seated ther ex with cuing on breathing including LAQ and postural control. Maverick then walked 500 feet to his hospital bed. Upon arrival to hospital bed, Maverick's O2 stats declined to 57 ml javier. His O2 stats returned to 80-90 ml javier after 5 min of rest. Maverick's bed alarm was turned on after returning from PT. A: Maverick displayed weakness and decreased exercise endurance and capacity. It was difficult for Maverick to breath with movement, but with cuing, he was able to pair his breathing with movement. P: Continue as per POC.
[2017-05-24] MEDS: CEFUROXIME 500 MG TABLET PO SCH (21:00)
[2017-05-24] MEDS: CLINDAMYCIN 150 MG CAPSULE PO SCH (21:00)
[2017-05-24] MEDS: traMADol 50 MG TABLET PO PRN (21:04)
[2017-05-25] MEDS: IPRATROPIUM/ALBUTEROL SULFATE 3 ML NEB NEB PRN (07:22)
[2017-05-25] MEDS: POLYETHYLENE GLYCOL 3350 17 GM POWDER PO SCH (08:31)
[2017-05-25] MEDS: CLINDAMYCIN 150 MG CAPSULE PO SCH (08:32)
[2017-05-25] MEDS: ASPIRIN 325 MG TABLET PO SCH (08:34)
[2017-05-25] MEDS: ESCITALOPRAM 10 MG TABLET PO SCH (08:34)
[2017-05-25] MEDS: CEFUROXIME 500 MG TABLET PO SCH (08:36)
[2017-05-25] MEDS: FOLIC ACID 1 MG TABLET PO SCH (08:36)
[2017-05-25] MEDS: AMIODARONE 200 MG TABLET PO SCH (08:36)
[2017-05-25] MEDS: FLUTICASONE PROPIONATE 16 GRAM (120 SPRAYS / BOTTLE) ENOS SCH (08:36)
[2017-05-25] MEDS: ENOXAPARIN SODIUM 40 MG/0.4 ML SYRINGE SUBCUT SCH (08:38)
[2017-05-25] MEDS ORDERED: predniSONE Tab 20 MG TAB PO SCH (09:00)
[2017-05-25] MEDS ORDERED: cefTRIAXone Inj 2 GM in Sodium Chloride 0.9% 100 ML IV SCH (09:00)
[2017-05-25 09:30] VITALS: RESP 20; TEMP 97.4
--- NOTE | 2017-05-25 09:35 | PT.PROG ---
Progress Note Progress Note: S: Stephanie reports that his stomach pain has decreased since this morning, but that he is still dizzy and has been since this morning. Stephanie agreed to participate in therapy and also expressed that he was excited to be discharged from the hospital. O: Upon arrival, Stephanie was at 90% O2 with 5L supplemental O2 and was positioned in long sit on the bed. Stephanie transferred himself independently to EOB with SBA and demonstrated adequate balance during the transfer with 80-90% O2. With CGA, stephanie transferred to a standing position at which point his supplemental O2 was increased to 8L, he maintained 80-90% O2. He then walked walked 20 feet to the hospital room door with CGA and at 80-90% O2. Frequent rest breaks were taken in seated position throughout the therapy session. At the end of therapy, Stephanie was brought back to his room, bed alarm on and call light within reach. Ther ex included LAQ and STS with cuing for breathing with movement 1x10 and gait with AD focusing on forward gaze, upright posture and breathing. A: Stephanie tolerated the therapy session well, however with symptoms of dizziness that persisted throughout the therapy session. The session was terminated early due to reports of increased dizziness. Stephanie is beginning to become more aware of his breath cycle throughout movement and is showing progress in this area. Total therapy session: 50 min. P: continue POC with interventions focusing on techniques to facilitate breathing with movement.
[2017-05-25] MEDS: TAMSULOSIN 0.4 MG CAPSULE PO SCH (09:38)
[2017-05-25] MEDS: CHOLECALCIFEROL 1000 IU TABLET PO SCH (09:38)
[2017-05-25] MEDS: NORMAL SALINE 10 ML SYRINGE FLUSH IVP PRN (09:38)
--- NOTE | 2017-05-25 12:22 | DCSUMMARY ---
Hospitalization Summary Admit Date: 05/22/17 Discharge Date: 05/25/17 Primary Diagnosis:: left lower lobe chronic pneumonia and COPD exacerbation Hospital Course: This very pleasant 77-year-old male who has end-stage COPD and came in with worsening abdominal pain and shortness breath and cough. His abdominal pain was worked up and his CT scan was negative for any acute findings, he did have sludge in the gallbladder with ultrasound, but no further signs of cholecystitis and his abdominal pain resolved. The abdominal aortic aneurysm showed no evidence of rupture, although it is now at 4.2 cm, and I curb sided vascular surgery and they suggested repeat ultrasounds about every 4 months or so to make sure that it's not at 5. If it's at 5 cm, the suggestion was to send up to [facility] for workup for endovascular repair. In terms of the COPD and other issues, we did do a CT scan which showed worsening emphysematous changes, and chronic but improved infiltrative findings or inflammatory findings in the left lower lobe. I think the patient probably has a chronic left lower lobe pneumonia. He had COPD exacerbation and his story was that he was vomiting prior to the hospital stay and I think he may have aspirated and caused worsened condition. I did do some swallow studies and OT evaluation and he does not have silent aspiration or gross aspiration. He is a slow chewer and would benefit from a mechanical soft diet. He tolerated that well through the hospital stay. We maintained him on Rocephin and clindamycin through the hospital stay, and he is up-to-date on vaccines. He states to me that he quit smoking some time ago. We will have him finish a course of Ceftin and clindamycin and continue antibiotics for total of 10 days. I have him on a slower taper from steroids. We had some discussions about Zithromax, to help prevent further exacerbations, but given the amiodarone therapy and history of arrhythmias, I think it's best to hold off at this point. However, if the patient has any further COPD exacerbations, I think it'll be time to implement Zithromax therapy. Patient was noted to desaturate quite significantly with activities and he definitely require higher flow oxygen to maintain oxygen saturations, so we will prescribe high flow oxygen at 5 L per nasal cannula and increase that to 7- 8 L with activities. Ultimately, the patient is still exhibiting signs and symptoms of weight loss, and pulmonary cachexia, and I think he is in and 6 months to 1 year of his COPD course, but he still wishes to be a full code at this time. His daughter was very helpful during this hospital stay and arrange for the patient's ex- to live with him for some time at the home and [place] and provide assistance for the patient. Patient was hypotensive to normotensive, we were able to stop losartan therapy. I also stopped statin and Protonix at this time. He is showing some signs of early dementia and had a Mini-Mental state excess essentially with a score 16/ 30. Overall, prognosis remains very guarded and again I think the patient is probably within his last 6 months of life. Today, he wishes to go home. I did offer swing bed for continued therapy and he refused that. He does not complain of any chest pain. Does not complain of any shortness of breath at this time. He overall feels better and wishes to go home. Assessment and Plan: 1. As per discharge assessments noted 2. Disposition: Patient is discharged home 3. Condition on discharge, stable and improved. Overall prognosis remains poor with end-stage COPD 4. Diet: regular diet 5. Activities: resume normal activities 6. Follow-Up: 1. Primary care provider in one week 2. 7. Medications at the Time of Discharge: Home Medications Medication Instructions Recorded Confirmed Type Aspirin 650 mg PO DAILY #60 tablet 01/13/15 05/22/17 Rx Amiodarone HCl [Pacerone] 200 mg PO DAILY #30 tablet 08/18/16 05/22/17 Clinic Escitalopram Oxalate [Lexapro] 10 mg PO EVERY AM #30 tablet 08/18/16 05/22/17 Clinic Fluticasone Propionate [Flonase 2 spr ARAVIND QD #1 spr 08/18/16 05/22/17 Clinic Allergy Relief] Tamsulosin HCl [Flomax] 0.4 mg PO DAILY #30 cap 08/18/16 05/22/17 Clinic Tiotropium [place] [Spiriva] 18 mcg INH RTDAILY #30 inhaler 08/18/16 05/22/17 Clinic Lidocaine HCl [Lidocaine HCl 15 ml PO QID PRN #100 ml 03/15/17 05/22/17 Clinic Viscous] Tramadol HCl 1 tab PO Q4H PRN #90 tab 03/15/17 05/22/17 Clinic Albuterol/Ipratrop Neb Soln 3 ml NEB QID 05/22/17 05/22/17 History [Duoneb Neb Soln] Cholecalciferol (Vitamin D3) 2,000 unit PO DAILY 05/22/17 05/22/17 History [Vitamin D3] Cyanocobalamin/Folic Acid [Vitamin 1 each PO DAILY 05/22/17 05/22/17 History F58-Ipjis Acid Tablet] Fluticasone/Salmeterol [Advair 1 each IH BID 05/22/17 05/22/17 History 500-50 Diskus] Cefuroxime Axetil [Ceftin] 500 mg PO BID #14 tab 05/25/17 Rx Clindamycin HCl [Cleocin HCl] 450 mg PO TID #90 cap 05/25/17 Rx Prednisone 5 mg PO DAILY #39 tab 05/25/17 Rx 8. Time, care, counseling and coordination of care for this discharge is greater than 30 minutes. Exam - Vitals Vital Signs: Vital Signs Temperature 97.4 F Temperature Source Temporal Artery Scan Pulse Rate [Pulse Oximeter] 75 Pulse Rate 75 Respiratory Rate 20 Blood Pressure [Left Arm] 119/62 Blood Pressure 101/54 Pulse Ox 85 Oxygen Flow Rate 5 Oxygen Delivery Method Nasal Cannula Height 5 ft 8 in Weight 121 lb 12.8 oz - General General Appearance: POSITIVE: No Acute Distress, Cooperative, Thin - Eye Eye Exam: POSITIVE: No Scleral Icterus - ENT ENT Exam: POSITIVE: Mucous Membranes Moist - Respiratory Respiratory Exam: POSITIVE: Breathing Non Labored, Decreased Breath Sounds - Cardiovascular Cardiovascular Exam: POSITIVE: RRR, No Murmur, No Clicks, No Gallops, No Rubs, No JVD - GI/Abdominal GI/Abdominal Exam: POSITIVE: Normal Bowel Sounds, Non Tender, Non Distended, Soft - Extremities Extremities Exam: POSITIVE: No Edema Present, No Cyanosis Present, Clubbing Present - Neurological Neurological Exam: POSITIVE: Alert, Oriented x 3 (Signs of dementia noticed.), No Facial Droop, Speech Intact / Clear, Moves All Extremities Equally - Psychiatric Psychiatric Exam: POSITIVE: Normal Affect, Normal Mood Data Perinent Studies: Laboratory Results 05/22/17 05/22/17 05/22/17 Range/Units 09:46 10:12 10:30 WBC 13.42 H (4.8-10.8) 10^3/uL RBC 4.23 L (4.70-6.10) 10^6/uL Hgb 12.0 L (14.0-18.0) g/dL Hct 37.2 L (42.0-52.0) % MCV 87.9 (80-90) FL MCH 28.4 (27-31) PG MCHC 32.3 L (33-37) g/dL RDW Std Deviation 64.6 H (39-50) fL RDW Coeff of [place] 20.3 H (11.5-14.5) % Plt Count 189 (140-350) 10*3/uL MPV 9.8 (7.4-12.2) FL Immature Gran % (Auto) 0.2 (0-5) % Neut % (Auto) 88.3 H (50-80) % Lymph % (Auto) 5.7 L (10-50) % [place] % (Auto) 5.4 (5-15) % Eos % (Auto) 0 (0-8) % Baso % (Auto) 0.4 (0-1) % Immature Gran # (Auto) 0.03 10*3/UL Neut # (Auto) 11.86 10*3/UL Lymph # (Auto) 0.76 10*3/uL [place] # (Auto) 0.72 (0.3-0.8) 10*3/UL Eos # (Auto) 0 10*3/UL Baso # (Auto) 0.05 10*3/UL WBC Morphology Comment See comments (NORM) Plt Morphology Comment Normal morphology (NORM) RBC Morph Comment Normal morphology (NORM) VBG pH 7.34 (7.32-7.42) VBG pCO2 50 (45-55) mmHg VBG HCO3 27 H (22-26) mmol/L VBG Base Excess 1 (-2-2) MMOL/L Sodium 142 (135-145) meq/L Potassium 4.8 (3.8-5.2) meq/L Chloride 104 (98-112) meq/L Carbon Dioxide 27 (23-33) meq/L Anion Gap 11 (5-20) BUN 21 (7-22) mg/dL Creatinine 0.8 (0.70-1.50) mg/dL Estimated GFR (>60 ml/min/1.73m(2)) BUN/Creatinine Ratio 26.25 H (6-20) Glucose 123 H (78-110) mg/dL Calculated Osmolality 297.0 H (267-292) mOsm/kg Lactic Acid (0.70-2.10) MMOL/L Calcium 9.7 (8.7-10.7) mg/dL Total Bilirubin 1.0 (0.3-1.2) mg/dL AST 38 (21-57) IU/L ALT 28 (21-72) IU/L Alkaline Phosphatase 60 (38-126) IU/L Troponin I (< 0.040) ng/mL Total Protein 7.6 (6.1-8.0) g/dL Albumin 3.5 (3.5-4.8) g/dL Globulin 4.1 (2.50-4.10) g/dL Albumin/Globulin Ratio 0.80 L (1.3-2.0) mg/g Amylase 48 (30-110) U/L Lipase < 10 L (23-300) IU/L Ur Collection Type Cath specimen Urine Color Yellow Urine Clarity Clear (CLEAR) Urine pH 5.5 (5.0-8.5) Ur Specific [place] 1.010 (1.005-1.030) Urine Protein Negative (NEG) mg/dl Urine Glucose (UA) Negative (NEG) mg/dL Urine Ketones Negative (NEG) Urine Occult Blood Negative (NEG) Urine Nitrate Negative (NEG) Urine Bilirubin Small (NEG) Urine Urobilinogen 1.0 (0.2) EU/dL Ur Leukocyte Esterase Negative (NEG) Ur Culture Indicated? Culture not set 05/22/17 05/22/17 05/23/17 Range/Units 13:26 14:00 04:15 WBC 10.62 (4.8-10.8) 10^3/uL RBC 3.85 L (4.70-6.10) 10^6/uL Hgb 10.8 L (14.0-18.0) g/dL Hct 34.2 L (42.0-52.0) % MCV 88.8 (80-90) FL MCH 28.1 (27-31) PG MCHC 31.6 L (33-37) g/dL RDW Std Deviation 64.5 H (39-50) fL RDW Coeff of [place] 20.1 H (11.5-14.5) % Plt Count 153 (140-350) 10*3/uL MPV 10.5 (7.4-12.2) FL Immature Gran % (Auto) 0.2 (0-5) % Neut % (Auto) 95.7 H (50-80) % Lymph % (Auto) 3.4 L (10-50) % [place] % (Auto) 0.7 L (5-15) % Eos % (Auto) 0 (0-8) % Baso % (Auto) 0 (0-1) % Immature Gran # (Auto) 0.02 10*3/UL Neut # (Auto) 10.17 10*3/UL Lymph # (Auto) 0.36 10*3/uL [place] # (Auto) 0.07 L (0.3-0.8) 10*3/UL Eos # (Auto) 0 10*3/UL Baso # (Auto) 0 10*3/UL WBC Morphology Comment Normal morphology (NORM) Plt Morphology Comment Normal morphology (NORM) RBC Morph Comment See comments (NORM) VBG pH (7.32-7.42) VBG pCO2 (45-55) mmHg VBG HCO3 (22-26) mmol/L VBG Base Excess (-2-2) MMOL/L Sodium 138 (135-145) meq/L Potassium 4.4 (3.8-5.2) meq/L Chloride 105 (98-112) meq/L Carbon Dioxide 25 (23-33) meq/L Anion Gap 8 (5-20) BUN 23 H (7-22) mg/dL Creatinine 0.6 L (0.70-1.50) mg/dL Estimated GFR [employer] (>60 ml/min/1.73m(2)) BUN/Creatinine Ratio 38.33 H (6-20) Glucose 142 H (78-110) mg/dL Calculated Osmolality 291.0 (267-292) mOsm/kg Lactic Acid 1.4 (0.70-2.10) MMOL/L Calcium 9.1 (8.7-10.7) mg/dL Total Bilirubin (0.3-1.2) mg/dL AST (21-57) IU/L ALT (21-72) IU/L Alkaline Phosphatase (38-126) IU/L Troponin I 0.015 (< 0.040) ng/mL Total Protein (6.1-8.0) g/dL Albumin (3.5-4.8) g/dL Globulin (2.50-4.10) g/dL Albumin/Globulin Ratio (1.3-2.0) mg/g Amylase (30-110) U/L Lipase (23-300) IU/L Ur Collection Type Urine Color Urine Clarity (CLEAR) Urine pH (5.0-8.5) Ur Specific [place] (1.005-1.030) Urine Protein (NEG) mg/dl Urine Glucose (UA) (NEG) mg/dL Urine Ketones (NEG) Urine Occult Blood (NEG) Urine Nitrate (NEG) Urine Bilirubin (NEG) Urine Urobilinogen (0.2) EU/dL Ur Leukocyte Esterase (NEG) Ur Culture Indicated? Patient Problems - Patient Problem List (1) Aspiration pneumonia Current Visit: Yes Status: Acute Qualifiers: Aspiration pneumonia type: due to regurgitated food Laterality: left Lung location: lower lobe of lung Qualified Description: Aspiration pneumonia of left lower lobe due to regurgitated food Qualifier Code(s): ( J69.0) Pneumonitis due to inhalation of food and vomit (2) COPD exacerbation Current Visit: Yes Status: Acute (3) Abdominal pain Current Visit: Yes Status: Acute Qualifiers: Abdominal location: right upper quadrant Qualified Description: Right upper quadrant abdominal pain Qualifier Code(s): (R10.11) Right upper quadrant pain (4) Cachexia Current Visit: Yes Status: Acute (5) Failure to thrive in adult Current Visit: Yes Status: Chronic (6) Ventricular arrhythmia Current Visit: Yes Status: Chronic (7) Vitamin B12 deficiency (dietary) anemia Current Visit: Yes Status: Chronic (8) Weight loss Current Visit: Yes Status: Acute (9) Coronary artery disease Current Visit: Yes Status: Chronic Qualifiers: Coronary Disease-Associated Artery/Lesion type: [place] artery [place] vs. transplanted heart: [place] heart Associated angina: without angina Qualified Description: Coronary artery disease involving [place] coronary artery of [place] heart without angina pectoris Qualifier Code(s): (I25.10) Atherosclerotic heart disease of [place] coronary artery without angina pectoris (10) AAA (abdominal aortic aneurysm) Current Visit: Yes Status: Acute Qualifiers: Presence of rupture: without rupture Qualified Description: Abdominal aortic aneurysm (AAA) without rupture Qualifier Code(s): (I71.4) Abdominal aortic aneurysm, without rupture
--- NOTE | 2017-05-25 14:11 | PT.PROG ---
Progress Note Progress Note: S: Maverick reports that he is feeling better today and that his stomach pain and dizziness have decreased. Maverick again expressed excitement to be discharged home. He agreed to participate in therapy today. O: Maverick was at +90% O2 and on 5L supplemental O2 before initiating therapy. With SBA, Maverick moved to EOB at which point his O2 saturation decreased to 70- 80%. His supplemental O2 was increased to 8L and his %O2 increased to between 80 -90% within 5 min. Maverick moved to standing with CGA and his %O2 was maintained between 80-90%. He then walked 50 feet with CGA and AD at which point his %O2 decreased to 60-70%. Maverick's supplemental O2 was increased to 10L and he agreed to take a seat a rest and practice his breathing techniques. His %O2 increased to 80-90% within 5 min. Ther ex included LAQ (1x10) and gait (2x50 ft ) with cuing for breathing with movement. A: Maverick tolerated the therapy session well today and with decreased symptoms of dizziness. P: continue POC with interventions to facilitate breathing with movement.
--- NOTE | 2017-05-27 15:56 | OT AM DAY ---
Diagnosis : Weakness/Swallow Difficulties AM - Occupational Therapy S: The patient reports he would really like to return home. O: Today we did some cognitive screening with the He Cognitive Assessment (MOCA) secondary to some cognitive concerns that have been observed during sessions. Visual-Spatial/Executive: 10/31 Namin/3 Attention: 12/30 Language: 09/28 Abstraction: 09/27 Delayed recall: 10/31 Orientation: 11/29 The patient scored 16/30 for the full assessment which places him in the COGNITIVE IMPAIRMENT range. Today we also went over energy conservation techniques. The patient was very involved with the education piece. He practiced his pursed lipped breathing and we talked about functional ways that he could conserve his energy within his home. A: The patient is in the MODERATE cognitive impairment range. We did discuss this with the doctor. The patient is going home with 24-hour care at this point in time which is recommended secondary to his decreased cognitive processing abilities. Overall the patient was receptive to the energy conservation techniques. He was given a written handout and important areas were highlighted. P: Patient will be discharged to home. FELI
== END 2017-05-25 14:58 | disposition home or self-care (01) | DRG 194 ==
LOC: ER 09:17 → MED/SURG 14:18
PROVIDERS: ADMIT Family Medicine; ATTEND Family Medicine

== ENCOUNTER 2018-03-01 11:58 | Inpatient (IN) ==
[2018-03-01] MEDS ORDERED: IPRATROPIUM/ALBUTEROL SULFATE 3 ML NEB NEB ONE (12:17)
[2018-03-01 12:28] LABS: Hematocrit [HCT] 41.7 % (42.0-52.0); Hemoglobin [HGB] 13.4 g/dL (14.0-18.0); MEAN CORPUSCULAR HEMOGLOBIN 28.7 PG (27-31); MEAN CORPUSCULAR HGB CONC 32.1 g/dL (33-37); MEAN CORPUSCULAR VOLUME 89.3 FL (80-90); RED BLOOD COUNT 4.67 10^6/uL (4.70-6.10)
[2018-03-01 12:33] LABS: BLOOD UREA NITROGEN 24 mg/dL (7-22); SERUM ALBUMIN 3.8 g/dL (3.5-4.8)
--- NOTE | 2018-03-01 12:41 | PDOC ---
Dyspnea HPI - General Chief Complaint: Respiratory Complaint Stated Complaint: DYSPNEA, LEFT RIB/SIDE PAIN Date Seen by Provider: 03/01/18 Time Seen by Provider: 12:21 - History of Present Illness Initial Comments: Visit very nice 78-year-old gentleman who presents to the emergency department with complaints of shortness of breath. He has known history of substantial COPD and multiple different cardiac issues including implanted internal defibrillator and pacemaker and he believes that he has had history of congestive heart failure as well. He is denying any active chest pain. He denies nausea or vomiting or fever or chills he is coughing some and does have some sputum production however. - Patient Home Medications Home Medications: Home Medications Atorvastatin Calcium [Lipitor] 40 mg PO BEDTIME #30 tab 08/18/16 Pantoprazole Sodium [Protonix] 40 mg PO BID #60 tab 08/18/16 Losartan Potassium 0.5 tab PO QD #45 tab 03/21/17 Albuterol/Ipratrop Neb Soln [Duoneb Neb Soln] 3 ml NEB QID 05/22/17 Vitamin E 400 unit PO DAILY 05/22/17 aspirin 325 mg tablet 650 mg PO QDAY tab 08/23/17 cholecalciferol (vitamin D3) 1,000 unit capsule 2,000 unit PO QDAY cap vitamin B12 500 mcg-folic acid 400 mcg tablet 1 tab PO QDAY tab 08/23/17 lidocaine 2 % mucosal solution 15 ml PO QID PRN #100 ml 09/21/17 roflumilast 500 mcg tablet 500 mcg PO QDAY #90 tab 11/09/17 escitalopram 10 mg tablet 10 mg PO QDAY #30 tab 11/10/17 prednisone 10 mg tablet 10 mg PO .qod #90 tab 12/06/17 Fluticasone/Umeclidin/Vilanter [Trelegy Ellipta 100-62.5-25] 1 ea INH DAILY Levofloxacin [Levaquin] 500 mg PO DAILY #7 tab 12/17/17 amiodarone 200 mg tablet 200 mg PO DIRECTED #15 tab 12/20/17 tamsulosin 0.4 mg capsule 0.4 mg PO QDAY #30 cap 12/20/17 doxycycline hyclate 100 mg capsule 100 mg PO BID #14 cap 01/10/18 tramadol 50 mg tablet 50 mg PO Q4H PRN #90 tab 02/10/18 - Patient Allergies Allergies/Adverse Reactions: Allergies 3 Allergy/AdvReac Type Severity Reaction Status Date / Time Penicillins Allergy Intermediate RASH Verified 03/01/18 12:40 Past Medical History - heen HEENT History: Denies History Additional HEENT History: ORAL THRUSH Cardiovascular History: Arrhythmia, Pacemaker, Internal Defibrillator Additional Cardiovasular History: 6-7 YR AGO AND 20 YR AGO Respiratory History: COPD, Shortness of Breath Additional Respiratory History: HOME O2 @ 4L/MIN PER NC Gastrointestinal History: Denies History Genitourinary History: Denies History Endocrine History: Denies History Musculoskeletal History: Other (please comment) Prosthesis or Implant: No Additional Musculoskeletal History: LEFT SHOULDER SURGERY Neurological History: Denies History Blood Disorders: Denies History Psychiatric History: Substance Abuse Additional Psychiatric History: QUIT ALL 3 YR AGO PER PT History of Sexually Transmitted Diseases: No Cancer History: Lung History of MDRO: No History of Other Communicable Diseases: No Alcohol Use: Sober In the Past 12 Months, Have Used or Abuse Any Substance: None Previous Surgical History: Yes Type / Date of Surgery: cardiac stents. PACEMAKER/DEFIBRILLATOR Anesthesia Reactions: No Malignant Hyperthermia: No Significant Family History: No pertinent family hx Dyspnea Physical Exam - General Appearance General Appearance: REPORTS: Alert, Cooperative, No Acute Distress - HEENT HEENT: POSITIVE: Head Inspection Nml - Neck Neck: REPORTS: Normal Inspection - Respiratory Respiratory: REPORTS: Wheezes, Prolonged Expirations - Cardiovascular Cardiovascular: REPORTS: Regular Rate and Rhythm, Heart Sounds Normal - Abdomen Abdomen: Soft: (All Quadrants), Normal Bowel Sounds: (All Quadrants), Denies Tenderness: (All Quadrants) - Skin Skin: REPORTS: Intact, Normal For Race - Extremities Extremity: Non-Tender: (All Extremities), Normal ROM: (All Extremities) - Neurological / Psychological Neurological: POSITIVE: Affect Apporpriate, Oriented X3 Dyspnea Progress - Results Reviewed by me Xrays/CTs/US Reviewed by me: Yes Radiology Findings: rll pna CBC and BMP: 03/01/18 12:00 03/01/18 12:00 - Patient's Progress MDM / ED Course: This is a very nice gentleman who was admitted to the emergency department with complaints of increased shortness of breath and dyspnea. Through his emergency department workup he was found to have a leukocytosis chest x-ray evidence of right lower lobe pneumonia elevated d-dimer elevated BNP and elevated troponins mildly. CT scan of his chest showed the right lower lobe pneumonia and no other obvious findings including no PE. His BNP was largely elevated and he was given a dose of Lasix IV and due to his inability to ambulate and his marketed hypoxia when he tries to move a Davis catheter was placed. He has diuresed well. He was placed on Vapotherm after he arrived here as he is very difficult to oxygenate. His initial venous blood gas showed a normal pH and otherwise benign findings. He did have a mild elevation in his lactic acid level though he did not show other signs of significant sepsis. It's felt that his elevation in lactic acidosis secondary to her long hypoxemia and anaerobic metabolism. He is going to require admission and his case was discussed with the hospitalist. They have agreed to admit him for inpatient management. This patient had blood cultures drawn and was given Rocephin and azithromycin IV after there was radiologic evidence for pneumonia. Patient Care Time - Estimated PCT Patient Care Time (In Minutes): 30 Vital Signs - Recent Vital Signs Vital Signs: Vital Signs (Last 8 hours) Temp Pulse Pulse Resp BP Pulse Ox 03/01/18 15:03 92 03/01/18 12:43 75 26 H 94 03/01/18 12:42 75 26 H 94 03/01/18 12:41 98.4 F 75 26 H 119/86 84 03/01/18 12:15 94 - VS Reviewed Vital Signs Reviewed: Yes Discharge Condition: Fair Follow Up With: MAYRA BARTH [Primary Care Provider] -
[2018-03-01 12:55] LABS: PLATELET MORPHOLOGY COMMENT NORMAL MORPHOLOGY (NORM); WBC MORPHOLOGY COMMENT NORMAL MORPHOLOGY (NORM)
[2018-03-01 12:56] LABS: BAND NEUTROPHILS % 0 % (0-10); BASOPHILS % (MANUAL) 1 % (0-1); EOSINOPHILS % (MANUAL) 1 % (0-8); METAMYELOCYTES % 0 %; MONOCYTES % (MANUAL) 7 % (0-12); MYELOCYTES % 0 %; NEUTROPHILS % (MANUAL) 74 % (50-80); PROMYELOCYTES % 0 %; RBC MORPHOLOGY COMMENT SEE COMMENTS (NORM)
--- NOTE | 2018-03-01 13:27 | EKG ---
[address] [address] Measurements Intervals [place] Rate: 80 P: 85 [place]: 165 QRS: 100 QRSD: 157 T: 72 QT: 424 QTc: 460 Interpretive Statements SINUS RHYTHM WITH OCCASIONAL SUPRAVENTRICULAR PREMATURE COMPLEXES INTERMITTANT ATRIAL PACING INDETERMINATE AXIS RIGHT BUNDLE BRANCH BLOCK ST DEPRESSION, CONSIDER SUBENDOCARDIAL ISCHEMIA INFERIOR INFARCT, OLD Compared to ECG 12/17/2017 14:43:53 Indeterminate axis now present ST (T wave) deviation now present Electronically Signed On 03-01-18 14:38:59 MDT by Cristóbal Stock [email or web address]
[2018-03-01 13:31] LABS: VENOUS PH 7.39 (7.32-7.42)
[2018-03-01] MEDS ORDERED: LIDOCAINE HCL 2 % 10 ML JELLY URO-JECT TOPICAL PRN (13:46)
[2018-03-01] MEDS ORDERED: FUROSEMIDE 10 MG/1 ML - 4 ML IVP ONE (13:46)
--- NOTE | 2018-03-01 14:32 | DI ---
CT CTA Chest Non-Coronary WWO,03/01/2018 1:27 PM: Clinical History: Dyspnea and elevated d-dimer. Previous Exam: December 17, 2017 Findings: Multiple helically acquired CT images are obtained through the chest following the intravenous admini stration of 65 cc of Isovue 370, and demonstrates diffuse COPD. There is cardiomegaly. The pulmonary arteries are normal without filling defects or truncation to suggest pulmonary embolism . A coronary artery calcifications are seen. There is a left anterior chest wall pacemaker device in good position. The thyroid is unremarkable. There is some airspace disease within the right lung base in the dependent portion of the right lung. The upper abdomen is unremarkable. Impression: Airspace disease within the right lung base and dependent portions of the right lung most consistent with pneumonia. No evidence of pulmonary embolism.
--- NOTE | 2018-03-01 14:35 | DI ---
XR CXR 2VW PA/LAT,03/01/2018 12:17 PM: Clinical History: Acute respiratory failure. Previous Exam: None at this facility. Findings: PA and lateral views of the chest are obtained, and demonstrate airspace disease within the right millie g base. There is diffuse osteopenia and some scarring within the upper lobes bilaterally. There is cardiomegaly. There is a pacemaker device. Impression: Right lower lobe pneumonia. Diffuse COPD and scarring within the lung apices.
[2018-03-01] MEDS ORDERED: cefTRIAXone Inj 2 GM in Sodium Chloride 0.9% 100 ML IV ONE (14:55)
[2018-03-01] MEDS ORDERED: methylPREDNISolone 125 MG/2 ML VIAL IVP ONE (14:58)
[2018-03-01 15:54] LABS: ABG BASE EXCESS -3 MMOL/L (-2-2); ABG OXYGEN SATURATION 94 % (90-100); ABG PCO2 32 MMHG (34-38); ABG PH 7.43 (7.35-7.45); ABG PO2 68 MMHG (65-75); ALLEN TEST Y; COLLECTION SITE R RADIAL
[2018-03-01] MEDS ORDERED: LIDOCAINE W/ SODIUM BICARB 0.5 ML SYR SUBD PRN (16:18)
[2018-03-01] MEDS ORDERED: CYANOCOBALAMIN PO SCH (16:18)
[2018-03-01] MEDS ORDERED: predniSONE Tab 10 MG TAB PO SCH (16:18)
[2018-03-01] MEDS ORDERED: FOLIC ACID PO SCH (16:18)
[2018-03-01] MEDS ORDERED: LIDOCAINE 2% VISCOUS(20 MG/1 ML) - 15 ML UD CUP PO PRN (16:18)
[2018-03-01] MEDS ORDERED: ONDANSETRON 4 MG/2 ML VIAL IVP PRN (16:18)
[2018-03-01] MEDS ORDERED: cefTRIAXone Inj 2 GM in Sodium Chloride 0.9% 100 ML IV SCH (16:18)
[2018-03-01] MEDS ORDERED: methylPREDNISolone 125 MG/2 ML VIAL ONE (16:36)
[2018-03-01] MEDS ORDERED: IPRATROPIUM/ALBUTEROL SULFATE 3 ML NEB NEB SCH (17:00)
[2018-03-01] MEDS: IPRATROPIUM/ALBUTEROL SULFATE 3 ML NEB NEB SCH (19:41)
--- NOTE | 2018-03-01 19:43 | PDOC ---
HPI - History of Present Illness Date of Service: 03/01/18 Time of Service: 19:38 Chief Complaint: not feeling well. History of Present Illness: This very pleasant 78-year-old male who is known to the hospital service with end-stage COPD, cachexia although better as of late with a weight of 147 pounds that has been dropping now 138 pounds today, history of tobacco abuse, amongst other medical issues. He comes in stating that he's just been feeling poorly over the last few days. I spoke with his daughter, Elena, and she states that the patient has actually been quite hypoxic and has actually dropped into the 50 % range sometimes. This is after doing something as simple as walking to the bathroom. The patient states that he's not had any chest pains. He denies any fevers but he has had cough and increased nasal sputum production. It's been somewhat brownish in color. He denies any choking sensations when he eats and he said a barium swallow that was fine in the past. He relies on an Ensure for his caloric intake as well, and I'm not sure if that's causing the change in the color. Be that as it may, the patient was seen by his daughter yesterday and the patient refused to come in for evaluation. Today she called the ambulance as the patient was quite hypoxic, was struggling to breathe even at rest, and he was found to have a right lower lobe pneumonia. Patient was given Rocephin and Zithromax in the emergency room and we admitted him for further evaluation. I noted that his liver enzymes and his troponins were slightly elevated although his troponin on a 2 hour recheck did drop. This looks to be demand ischemia is probably not public service representative of a true myocardial infarction. We spoke about hospice, but the patient is not quite sure that he wants that. The patient did try his breathing treatments over the last couple days although he states he is followed off a little bit in terms of frequency, and he does not notice that they have made a significant difference in his overall feeling poorly over the last couple of days. Although he is up 18 pounds from his disc charge weight in April 2017, he is down about 9 pounds in the last 2 months. The patient notes that his concentrator was down to 3 L per nasal cannula and he is not sure how it got down there. His daughter states that despite that oxygen and the high concentrator that he is still quite short of breath with minimal activity and sometimes even at rest. He complains of some rib tenderness on the left side. Past Medical History Medical History: 1. COPD, end-stage, 6 L per nasal cannula. He has been on a high flow concentrator since April 2017. 2. Coronary artery disease with depressed ejection fraction, status post stents in the past none recent. 3. Cardiomyopathy status post AICD placement, he states that shocked him a 2 years ago or so. It apparently was just interrogated about a month ago in the cardiac clinic. 4. Frequent headaches. 5. Tobacco abuse, but quit 3 years ago. 6. History of alcohol abuse, patient states he's not had anything to drink since prior to 2013. 7. Ventricular arrhythmias for which the patient is on amiodarone and has an AICD placed. 8. Anxiety disorder. 9. Weight loss, 9 pounds in the last 2 months. 10. Depression, on Lexapro. 11. Peripheral vascular disease with abdominal aortic aneurysm at 4.2 cm liters, up 0.3 cm from 2012. 12. Hypertension Surgical History: 1. Right partial index finger amputation. 2. AICD placement. 3. Cardiac stents Pertinent Family History: Mother in 90s, and father in a car wreck. No other major medical issues in the family per the patient Past Social History: Former smoker, quit., used to drink, had a life partner of 25 years who over a year ago. Retired and lives in [place]. Has 2 daughters. Elena is his power of workers compensation defense attorney Tobacco Use: Former Smoker Do you dip or chew tobacco: No In the Past 12 Months, Have Used or Abuse Any of the Following Substance: None Alcohol Use: None Medication / Allergies Home Medications: Home Medications 3 Medication Instructions Recorded Confirmed Type Atorvastatin Calcium [Lipitor] 40 mg PO BEDTIME #30 tab 08/18/16 05/22/17 Clinic Pantoprazole Sodium [Protonix] 40 mg PO BID #60 tab 08/18/16 05/22/17 Clinic Losartan Potassium 0.5 tab PO QD #45 tab 03/21/17 05/22/17 Clinic Albuterol/Ipratrop Neb Soln 3 ml NEB QID 05/22/17 03/01/18 History [Duoneb Neb Soln] Vitamin E 400 unit PO DAILY 05/22/17 05/22/17 History aspirin 325 mg tablet 650 mg PO QDAY tab 08/23/17 03/01/18 History cholecalciferol (vitamin D3) 1,000 2,000 unit PO QDAY cap 08/23/17 03/01/18 History unit capsule vitamin B12 500 mcg-folic acid 400 1 tab PO QDAY tab 08/23/17 03/01/18 History mcg tablet lidocaine 2 % mucosal solution 15 ml PO QID PRN #100 ml 09/21/17 03/01/18 Rx roflumilast 500 mcg tablet 500 mcg PO QDAY #90 tab 11/09/17 03/01/18 Rx escitalopram 10 mg tablet 10 mg PO QDAY #30 tab 11/10/17 03/01/18 Rx prednisone 10 mg tablet 10 mg PO .qod #90 tab 12/06/17 03/01/18 Rx Fluticasone/Umeclidin/Vilanter 1 ea INH DAILY 12/17/17 03/01/18 History [Trelegy Ellipta 100-62.5-25] Levofloxacin [Levaquin] 500 mg PO DAILY #7 tab 12/17/17 03/01/18 Rx amiodarone 200 mg tablet 200 mg PO DIRECTED #15 tab 12/20/17 03/01/18 Rx tamsulosin 0.4 mg capsule 0.4 mg PO QDAY #30 cap 12/20/17 03/01/18 Rx doxycycline hyclate 100 mg capsule 100 mg PO BID #14 cap 01/10/18 03/01/18 Rx fluticasone 200 mcg-vilanterol 25 1 inh INH DAILY #6 Samples 01/11/18 03/01/18 Sample mcg/dose powder for inhalation tramadol 50 mg tablet 50 mg PO Q4H PRN #90 tab 02/10/18 03/01/18 Rx Allergies/Adverse Reactions: Allergies 3 Allergy/AdvReac Type Severity Reaction Status Date / Time Penicillins Allergy Intermediate RASH Verified 03/01/18 12:40 Review of Systems - Review of Systems All Systems: Reviewed & No Additional Complaints Except as Stated (I did a 12 point review systems and it was negative other than that discussed in the history of present illness and that noted below: Patient states that he had some sweating and his face felt cold.) - Respiratory Respiratory: REPORTS: Cough, Sputum, Dyspnea At Rest, Dyspnea with Exertion, See HPI - Cardiovascular Cardiovascular: REPORTS: Negative System Review - Gastrointestinal Gastrointestinal / Abdominal: REPORTS: Negative System Review - Genitourinary Genitourinary: REPORTS: Negative System Review Exam - Vitals Vital Signs: Vital Signs Temperature 97.5 F Temperature Source Temporal Artery Scan Pulse Rate [Pulse Oximeter 77 Bilateral Radial] Pulse Rate 86 Respiratory Rate 27 Blood Pressure [Right Arm] 136/75 Blood Pressure 151/83 Pulse Ox 88 Oxygen Flow Rate 27 Oxygen Delivery Method Vapotherm Height 5 ft 8 in Weight 138 lb - General General Appearance: Cooperative, Mild Distress (Definitely short of breath at rest. Transferring to the commode caused him significant shortness of breath and increased respiratory rate.) - Head Head Exam: Normal Inspection, Normocephalic, Atraumatic Additional Head Exam Details: Temporal wasting noted in the past is significantly improved. - Eye Eye Exam: POSITIVE: No Scleral Icterus - ENT ENT Exam: POSITIVE: Mucous Membranes Moist - Neck Neck Exam: Normal Inspection, No Tenderness, No Lymphadenopathy, No Thyromegaly - Respiratory Respiratory Exam: POSITIVE: Decreased Breath Sounds, Coarse Breath Sounds Additional Respiratory Exam Details: No accessory muscle involvement, but mildly labored and in the mid 20s particularly with activity. - Cardiovascular Cardiovascular Exam: POSITIVE: RRR, No Murmur, No Clicks, No Gallops, No Rubs, No JVD - GI/Abdominal GI/Abdominal Exam: POSITIVE: Normal Bowel Sounds, Non Tender, Non Distended, Soft - Rectal Rectal Exam: POSITIVE: Deferred - External Exam: POSITIVE: Deferred Exam: POSITIVE: Deferred - Extremities Extremities Exam: POSITIVE: No Edema Present, No Cyanosis Present, Clubbing Present - Back Back Exam: POSITIVE: Normal Inspection, No CVA Tenderness - Neurological Neurological Exam: POSITIVE: Alert, Oriented x 3, No Facial Droop, Speech Intact / Clear, Moves All Extremities Equally - Psychiatric Psychiatric Exam: POSITIVE: Normal Affect, Anxious - Integumentary Integumentary Exam: POSITIVE: Normal Color, Warm, Dry, Intact - Central Line Examination Central Line Present on Admission: No Results - Labs CBC and BMP: 03/01/18 12:00 03/01/18 12:00 Additional Lab Results: Laboratory Results 06/06/18 06/06/18 06/06/18 Range/Units 12:00 12:00 12:00 WBC 14.65 H (4.8-10.8) 10^3/uL RBC 4.67 L (4.70-6.10) 10^6/uL Hgb 13.4 L (14.0-18.0) g/dL Hct 41.7 L (42.0-52.0) % MCV 89.3 (80-90) FL MCH 28.7 (27-31) PG MCHC 32.1 L (33-37) g/dL RDW Std Deviation 63.3 H (39-50) fL RDW Coeff of Clarence 19.8 H (11.5-14.5) % Plt Count 222 (140-350) 10*3/uL MPV 11.0 (7.4-12.2) FL Neutrophils % (Manual) 74 (50-80) % Band Neutrophils % 0 (0-10) % Lymphocytes % (Manual) 17 (10-50) % Monocytes % (Manual) 7 (0-12) % Eosinophils % (Manual) 1 (0-8) % Basophils % (Manual) 1 (0-1) % Metamyelocytes % 0 % Myelocytes % 0 % Promyelocytes % 0 % Blast Cells 0 (0-1) % WBC Morphology Comment Normal morphology (NORM) Plt Morphology Comment Normal morphology (NORM) RBC Morph Comment See comments (NORM) D-Dimer 4.69 H (0.00-0.59) mg/L ABG pH (7.35-7.45) ABG pCO2 (34-38) MMHG ABG pO2 (65-75) MMHG ABG HCO3 (22-26) ABG Total CO2 (23-27) MMOL/L ABG O2 Saturation (90-100) % ABG Base Excess (-2-2) MMOL/L Luis Felipe Test VBG pH (7.32-7.42) VBG pCO2 (45-55) mmHg VBG HCO3 (22-26) mmol/L VBG Base Excess (-2-2) MMOL/L FiO2 Sodium 141 (135-145) meq/L Potassium 4.5 (3.8-5.2) meq/L Chloride 100 (98-112) meq/L Carbon Dioxide 24 (23-33) meq/L Anion Gap 17 (5-20) BUN 24 H (7-22) mg/dL Creatinine 1.0 (0.70-1.50) mg/dL BUN/Creatinine Ratio 24.00 H (6-20) Glucose 93 (78-110) mg/dL Calculated Osmolality 295.0 H (267-292) mOsm/kg Lactic Acid (0.70-2.10) MMOL/L Calcium 9.6 (8.7-10.7) mg/dL Magnesium 1.9 (1.6-2.4) mg/dL Total Bilirubin 1.4 H (0.3-1.2) mg/dL AST 188 H (21-57) IU/L ALT 74 H (21-72) IU/L Alkaline Phosphatase 129 H (38-126) IU/L Troponin I (< 0.040) ng/mL NT-Pro-B Natriuret Pep 01143 H (0-450) PG/ML Total Protein 6.9 (6.1-8.0) g/dL Albumin 3.8 (3.5-4.8) g/dL Globulin 3.1 (2.50-4.10) g/dL Albumin/Globulin Ratio 1.20 L (1.3-2.0) mg/g Ur Strep pneumoniae Ag 03/01/18 03/01/18 03/01/18 Range/Units 12:00 12:20 12:32 WBC (4.8-10.8) 10^3/uL RBC (4.70-6.10) 10^6/uL Hgb (14.0-18.0) g/dL Hct (42.0-52.0) % MCV (80-90) FL MCH (27-31) PG MCHC (33-37) g/dL RDW Std Deviation (39-50) fL RDW Coeff of Clarence (11.5-14.5) % Plt Count (140-350) 10*3/uL MPV (7.4-12.2) FL Neutrophils % (Manual) (50-80) % Band Neutrophils % (0-10) % Lymphocytes % (Manual) (10-50) % Monocytes % (Manual) (0-12) % Eosinophils % (Manual) (0-8) % Basophils % (Manual) (0-1) % Metamyelocytes % % Myelocytes % % Promyelocytes % % Blast Cells (0-1) % WBC Morphology Comment (NORM) Plt Morphology Comment (NORM) RBC Morph Comment (NORM) D-Dimer (0.00-0.59) mg/L ABG pH (7.35-7.45) ABG pCO2 (34-38) MMHG ABG pO2 (65-75) MMHG ABG HCO3 (22-26) ABG Total CO2 (23-27) MMOL/L ABG O2 Saturation (90-100) % ABG Base Excess (-2-2) MMOL/L Luis Felipe Test VBG pH 7.39 (7.32-7.42) VBG pCO2 40 L (45-55) mmHg VBG HCO3 24 (22-26) mmol/L VBG Base Excess -1 (-2-2) MMOL/L FiO2 Sodium (135-145) meq/L Potassium (3.8-5.2) meq/L Chloride (98-112) meq/L Carbon Dioxide (23-33) meq/L Anion Gap (5-20) BUN (7-22) mg/dL Creatinine (0.70-1.50) mg/dL BUN/Creatinine Ratio (6-20) Glucose (78-110) mg/dL Calculated Osmolality (267-292) mOsm/kg Lactic Acid 2.7 H (0.70-2.10) MMOL/L Calcium (8.7-10.7) mg/dL Magnesium (1.6-2.4) mg/dL Total Bilirubin (0.3-1.2) mg/dL AST (21-57) IU/L ALT (21-72) IU/L Alkaline Phosphatase (38-126) IU/L Troponin I 0.235 H* (< 0.040) ng/mL NT-Pro-B Natriuret Pep (0-450) PG/ML Total Protein (6.1-8.0) g/dL Albumin (3.5-4.8) g/dL Globulin (2.50-4.10) g/dL Albumin/Globulin Ratio (1.3-2.0) mg/g Ur Strep pneumoniae Ag 03/01/18 03/01/18 03/01/18 Range/Units 14:50 14:52 15:18 WBC (4.8-10.8) 10^3/uL RBC (4.70-6.10) 10^6/uL Hgb (14.0-18.0) g/dL Hct (42.0-52.0) % MCV (80-90) FL MCH (27-31) PG MCHC (33-37) g/dL RDW Std Deviation (39-50) fL RDW Coeff of Clarence (11.5-14.5) % Plt Count (140-350) 10*3/uL MPV (7.4-12.2) FL Neutrophils % (Manual) (50-80) % Band Neutrophils % (0-10) % Lymphocytes % (Manual) (10-50) % Monocytes % (Manual) (0-12) % Eosinophils % (Manual) (0-8) % Basophils % (Manual) (0-1) % Metamyelocytes % % Myelocytes % % Promyelocytes % % Blast Cells (0-1) % WBC Morphology Comment (NORM) Plt Morphology Comment (NORM) RBC Morph Comment (NORM) D-Dimer (0.00-0.59) mg/L ABG pH 7.43 (7.35-7.45) ABG pCO2 32 L (34-38) MMHG ABG pO2 68 (65-75) MMHG ABG HCO3 21 L (22-26) ABG Total CO2 22 L (23-27) MMOL/L ABG O2 Saturation 94 (90-100) % ABG Base Excess -3 L (-2-2) MMOL/L Luis Felipe Test Y VBG pH (7.32-7.42) VBG pCO2 (45-55) mmHg VBG HCO3 (22-26) mmol/L VBG Base Excess (-2-2) MMOL/L FiO2 90% Sodium (135-145) meq/L Potassium (3.8-5.2) meq/L Chloride (98-112) meq/L Carbon Dioxide (23-33) meq/L Anion Gap (5-20) BUN (7-22) mg/dL Creatinine (0.70-1.50) mg/dL BUN/Creatinine Ratio (6-20) Glucose (78-110) mg/dL Calculated Osmolality (267-292) mOsm/kg Lactic Acid (0.70-2.10) MMOL/L Calcium (8.7-10.7) mg/dL Magnesium (1.6-2.4) mg/dL Total Bilirubin (0.3-1.2) mg/dL AST (21-57) IU/L ALT (21-72) IU/L Alkaline Phosphatase (38-126) IU/L Troponin I 0.193 H* (< 0.040) ng/mL NT-Pro-B Natriuret Pep (0-450) PG/ML Total Protein (6.1-8.0) g/dL Albumin (3.5-4.8) g/dL Globulin (2.50-4.10) g/dL Albumin/Globulin Ratio (1.3-2.0) mg/g Ur Strep pneumoniae Ag Negative - EKG Data -: EKG Interpreted by Me Rate: Normal EKG Shows Normal: Sinus Rhythm - Imaging Status: Image Reviewed by Me (Chest x-ray significant for a right-sided pneumonia in the base. CT scan of the chest shows bullous emphysema that's quite severe as well as a right-sided pneumonia.) Assessment and Plan - Patient Problems (1) Pneumonia Current Visit: Yes Status: Acute Code(s): J18.9 - Pneumonia, unspecified organism Qualifiers: Pneumonia type: due to unspecified organism Laterality: right Lung location: lower lobe of lung Qualified Code(s): J18.1 - Lobar pneumonia, unspecified organism (2) COPD Current Visit: Yes Status: Chronic (3) Abdominal aortic aneurysm 35 to 39 mm in diameter Current Visit: Yes Status: Chronic Code(s): I71.4 - Abdominal aortic aneurysm, without rupture (4) Cardiomyopathy, ischemic Current Visit: Yes Status: Chronic Onset Date: 07/26/14 Code(s): I25.5 - Ischemic cardiomyopathy (5) Coronary artery disease Current Visit: Yes Status: Chronic Qualifiers: Coronary Disease-Associated Artery/Lesion type: [place] artery [place] vs. transplanted heart: [place] heart Associated angina: without angina Qualified Code(s): I25.10 - Atherosclerotic heart disease of [place] coronary artery without angina pectoris (6) Peripheral vascular disease Current Visit: Yes Status: Chronic (7) Weight loss Current Visit: Yes Status: Acute Code(s): R63.4 - Abnormal weight loss - Assessment / Plan Additional Assessment/Plan Details: Admit patient. Antibiotics will be given IV rocephin and zithromax I will write for some breathing therapies including nebulized therapies if necessary. Oxygen as necessary to keep saturations greater than 91%. Use of Vapotherm will be utilized here to keep oxygen saturations above 91% of possible Respiratory therapy to evaluate. Vitamin C by mouth. We'll check a urinary antigen for strep pneumoniae. And that has come back negative vaccine status reviewed had pneumovax and flu shot/had pneumovax but refuses flu vaccine/ had flu vaccine but requires pneumovax PSI score is 106 . Class 4 pneumonia CURB-65 is 3, giving a mortality of 14% at 30 days smoking status negative per patient history, Repeat labs in a.m. CODE STATUS discussed, r DO NOT RESUSITATE Blood cultures are pending. Telemetry monitoring for now. course of antibiotics will be 7 days, and will switch to oral antibiotics within 48 hours if clinical picuture stabilizes. Strong consideration for hospice program upon resolution of this hospital stay. I spoke with patient's primary physician who would agree with that as well. I spoke with the patient's daughter who excess could be a reasonable plan especially based on how the patient's condition has deteriorated lately at home over the last year. Plan above discussed with patient and patient agreed
[2018-03-01] MEDS: DOCUSATE 100 MG CAPSULE PO SCH (20:11)
[2018-03-01] MEDS: traMADol 50 MG TABLET PO PRN (20:14)
[2018-03-01 20:40] LABS: BLOOD UREA NITROGEN 26 mg/dL (7-22); BUN/CREATININE RATIO 28.88 (6-20)
[2018-03-02] MEDS: traMADol 50 MG TABLET PO PRN ×3 (02:08→21:12)
[2018-03-02] MEDS ORDERED: diphenhydrAMINE 25 MG CAPSULE PO ONE (02:12)
[2018-03-02] MEDS: ACETAMINOPHEN 500 MG TABLET PO PRN ×3 (02:20→21:12)
[2018-03-02 05:08] LABS: Hematocrit [HCT] 38.2 % (42.0-52.0); Hemoglobin [HGB] 12.2 g/dL (14.0-18.0); MEAN CORPUSCULAR HEMOGLOBIN 28.4 PG (27-31); MEAN CORPUSCULAR HGB CONC 31.9 g/dL (33-37); MEAN CORPUSCULAR VOLUME 88.8 FL (80-90); MEAN PLATELET VOLUME 10.7 FL (7.4-12.2)
[2018-03-02 05:54] LABS: BLOOD UREA NITROGEN 25 mg/dL (7-22); BUN/CREATININE RATIO 35.71 (6-20)
[2018-03-02 05:59] LABS: PLATELET MORPHOLOGY COMMENT SEE COMMENTS (NORM); WBC MORPHOLOGY COMMENT NORMAL MORPHOLOGY (NORM)
[2018-03-02 06:00] LABS: BAND NEUTROPHILS % 1 % (0-10); BASOPHILS % (MANUAL) 0 % (0-1); EOSINOPHILS % (MANUAL) 0 % (0-8); MONOCYTES % (MANUAL) 2 % (0-12); NEUTROPHILS % (MANUAL) 94 % (50-80); RBC MORPHOLOGY COMMENT SEE COMMENTS (NORM)
[2018-03-02] MEDS: IPRATROPIUM/ALBUTEROL SULFATE 3 ML NEB NEB SCH ×4 (06:51→18:49)
[2018-03-02] MEDS: TAMSULOSIN 0.4 MG CAPSULE PO SCH (09:19)
[2018-03-02] MEDS: DOCUSATE 100 MG CAPSULE PO SCH ×2 (09:19→21:12)
[2018-03-02] MEDS: CHOLECALCIFEROL 1000 IU TABLET PO SCH (09:19)
[2018-03-02] MEDS: ESCITALOPRAM 10 MG TABLET PO SCH (09:19)
[2018-03-02] MEDS: ASCORBIC ACID Chewable 500 MG TABLET PO SCH (09:19)
[2018-03-02] MEDS: ASPIRIN 325 MG TABLET PO SCH (09:19)
[2018-03-02] MEDS: ENOXAPARIN SODIUM 30 MG/0.3 ML SYRINGE SUBCUT SCH (09:21)
[2018-03-02] MEDS: ROFLUMILAST 500 MCG PO SCH (09:45)
[2018-03-02] MEDS: BREO ELLIPTA INH SCH (10:44)
[2018-03-02] MEDS ORDERED: Vancomycin-PHA to Dose IV PRN (12:17)
[2018-03-02] MEDS: Cefepime Inj 2 GM in Sodium Chloride 0.9% 100 ML IV SCH ×2 (13:30→21:11)
[2018-03-02] MEDS ORDERED: Oxybutynin ER Tab 5 MG TAB PO ONE (13:48)
--- NOTE | 2018-03-02 13:51 | PDOC(PROG) ---
Date and Time of Service: 03/02/2018, 1350 Interval History: States that he feels a little bit better. His oxygen level has not changed at all. Very reluctant to get rid of catheter as he's quite short of breath with even minimal movement to a commode to urinate. I had discussions with the patient, his daughter, Elena, and RN about the patient potentially going to the hospice program. Clinically he is not much better from this pneumonia. He still requiring high amounts of oxygen and has stage IV dyspnea in terms of being short of breath even at rest. No nausea or vomiting. Having a bowel movement yesterday left the patient winded and hypoxic even just on the transfer. Objective : Data - Labs CBC and BMP: 03/02/18 04:02 03/02/18 04:02 Additional Lab Results: 03/01/18 03/02/18 03/02/18 14:50 04:02 04:02 Neutrophils % (Manual) 94 H Band Neutrophils % 1 Lactic Acid Calcium Total Bilirubin AST ALT Alkaline Phosphatase Troponin I 0.110 H Total Protein Albumin Globulin Albumin/Globulin Ratio Ur Strep pneumoniae Ag Negative 03/02/18 03/02/18 04:02 04:02 Neutrophils % (Manual) Band Neutrophils % Lactic Acid 1.4 Calcium 8.6 L Total Bilirubin 0.7 AST 98 H ALT 64 Alkaline Phosphatase 96 Troponin I Total Protein 6.1 Albumin 3.0 L Globulin 3.1 Albumin/Globulin Ratio 0.90 L Ur Strep pneumoniae Ag Urinary strep antigen was negative Objective : Exam - General General Appearance: No Acute Distress, Cooperative Additional General Exam Details: Vital Signs - Last Taken Temperature 97 F 03/02/18 12:18 Pulse Rate 79 03/02/18 12:18 Respiratory Rate 20 03/02/18 12:18 Blood Pressure 110/54 03/02/18 12:18 Pulse Ox 91 03/02/18 10:41 The patient overall has less distress in terms of his breathing than yesterday, but overall still cannot get more than about 2-3 words out before taking a breath. - Eye Eye Exam: No Scleral Icterus - ENT ENT Exam: Mucous Membranes Moist - Respiratory Respiratory Exam: Decreased Breath Sounds, Wheezes, Coarse Breath Sounds Additional Respiratory Exam Details: Social and 27 L/m at 45% O2 on Vapotherm. - Cardiovascular Cardiovascular Exam: RRR, No Murmur, No Clicks, No Gallops, No Rubs, No JVD - GI/Abdominal GI/Abdominal Exam: Normal Bowel Sounds, Non Tender, Non Distended, Soft - Extremities Extremities Exam: No Edema Present, No Cyanosis Present, Clubbing Present - Neurological Neurological Exam: Alert, Oriented x 3, No Facial Droop, Speech Intact / Clear, Moves All Extremities Equally Assessment and Plan - Patient Problems (1) Pneumonia Current Visit: Yes Status: Acute Code(s): J18.9 - Pneumonia, unspecified organism Qualifiers: Pneumonia type: due to unspecified organism Laterality: right Lung location: lower lobe of lung Qualified Code(s): J18.1 - Lobar pneumonia, unspecified organism (2) COPD Current Visit: Yes Status: Chronic (3) Abdominal aortic aneurysm 35 to 39 mm in diameter Current Visit: Yes Status: Chronic Code(s): I71.4 - Abdominal aortic aneurysm, without rupture (4) Cardiomyopathy, ischemic Current Visit: Yes Status: Chronic Onset Date: 07/26/14 Code(s): I25.5 - Ischemic cardiomyopathy (5) Coronary artery disease Current Visit: Yes Status: Chronic Qualifiers: Coronary Disease-Associated Artery/Lesion type: [place] artery [place] vs. transplanted heart: [place] heart Associated angina: without angina Qualified Code(s): I25.10 - Atherosclerotic heart disease of [place] coronary artery without angina pectoris (6) Peripheral vascular disease Current Visit: Yes Status: Chronic (7) Weight loss Current Visit: Yes Status: Acute Code(s): R63.4 - Abnormal weight loss - Assessment / Plan Additional Assessment/Plan Details: Given minimal changes and oxygen, I'll go ahead and broaden antibiotics as the patient is immunocompromised. We will treat with cefepime and vancomycin for now. This should also increase pseudomonal coverage. I think if he is not much better in the next 48 hours, then we may be looking at end-of-life situation. I don't know if he has the pulmonary reserve to fight this pneumonia. I strongly recommended hospice. I think the patient has less than 6 months to live based on end-stage COPD, now developing pulmonary cachexia, weight loss, protein malnutrition, and significant dyspnea at rest. Ditropan for bladder spasms with the catheter. Check labs in a.m. Continue oxygen to maintain sats greater than 91%. The patient and his daughter again and continue to discuss potential plans for hospice as the patient's daughter lives in [place] and it may make more sense to do inpatient hospice therapies as there are no services in [place].
[2018-03-03] MEDS: Cefepime Inj 2 GM in Sodium Chloride 0.9% 100 ML IV SCH ×3 (04:38→20:29)
[2018-03-03 05:32] LABS: BASOPHILS # (AUTO) 0.01 10*3/UL; BASOPHILS % (AUTO) 0.1 % (0-1); EOSINOPHILS # (AUTO) 0 10*3/UL; EOSINOPHILS % (AUTO) 0 % (0-8); Hematocrit [HCT] 37.6 % (42.0-52.0); Hemoglobin [HGB] 11.8 g/dL (14.0-18.0); LYMPHOCYTES # (AUTO) 0.97 10*3/uL; MEAN CORPUSCULAR HEMOGLOBIN 28.5 PG (27-31); MEAN CORPUSCULAR HGB CONC 31.4 g/dL (33-37); MEAN CORPUSCULAR VOLUME 90.8 FL (80-90); MEAN PLATELET VOLUME 10.8 FL (7.4-12.2); MONOCYTES # (AUTO) 1.09 10*3/UL (0.3-0.8); MONOCYTES % (AUTO) 7.7 % (5-15); NEUTROPHILS % (AUTO) 85.1 % (50-80); RED BLOOD COUNT 4.14 10^6/uL (4.70-6.10)
[2018-03-03 06:10] LABS: BLOOD UREA NITROGEN 33 mg/dL (7-22); BUN/CREATININE RATIO 47.14 (6-20)
[2018-03-03 06:11] LABS: SERUM ALBUMIN 2.6 g/dL (3.5-4.8)
[2018-03-03 06:33] LABS: PLATELET MORPHOLOGY COMMENT NORMAL MORPHOLOGY (NORM); RBC MORPHOLOGY COMMENT SEE COMMENTS (NORM); WBC MORPHOLOGY COMMENT NORMAL MORPHOLOGY (NORM)
[2018-03-03] MEDS: IPRATROPIUM/ALBUTEROL SULFATE 3 ML NEB NEB SCH ×4 (06:49→18:28)
[2018-03-03] MEDS: ENOXAPARIN SODIUM 30 MG/0.3 ML SYRINGE SUBCUT SCH (10:18)
[2018-03-03] MEDS: ASPIRIN 325 MG TABLET PO SCH (10:19)
[2018-03-03] MEDS: CHOLECALCIFEROL 1000 IU TABLET PO SCH (10:19)
[2018-03-03] MEDS: Oxybutynin ER Tab 5 MG TAB PO SCH (10:19)
[2018-03-03] MEDS: ASCORBIC ACID Chewable 500 MG TABLET PO SCH (10:20)
[2018-03-03] MEDS: AMIODARONE 200 MG TABLET PO SCH (10:20)
[2018-03-03] MEDS: TAMSULOSIN 0.4 MG CAPSULE PO SCH (10:20)
[2018-03-03] MEDS: DOCUSATE 100 MG CAPSULE PO SCH ×2 (10:20→20:28)
[2018-03-03] MEDS: ESCITALOPRAM 10 MG TABLET PO SCH (10:20)
[2018-03-03] MEDS: BREO ELLIPTA INH SCH (10:21)
[2018-03-03] MEDS: ROFLUMILAST 500 MCG PO SCH (10:22)
--- NOTE | 2018-03-03 16:24 | PDOC(PROG) ---
Date and Time of Service: 03/03/2018, 1617 Interval History: Feeling better overall. Coughs but not very productive. Desaturates on Vapotherm to 83 to 84% when he talks. When he is resting and not talking, his saturations are 91%. I spoke with respiratory therapy as well. We put the patient back on his home nasal cannula oxygen of 67 L and he is setting at 91%. The patient denies any nausea or vomiting. The catheter was very difficult to manage and it was leaking so we discontinued it today. He does desaturate with activities. Objective : Data - Labs CBC and BMP: 03/03/18 05:19 03/03/18 05:19 Additional Lab Results: 03/03/18 13:28 Vancomycin Trough 10.84 H Objective : Exam - General General Appearance: No Acute Distress, Cooperative Additional General Exam Details: Vital Signs - Last Taken Temperature 97.2 F 03/03/18 13:00 Pulse Rate 75 03/03/18 14:48 Respiratory Rate 20 03/03/18 14:48 Blood Pressure 102/59 03/03/18 13:00 Pulse Ox 94 03/03/18 15:00 - Eye Eye Exam: No Scleral Icterus - ENT ENT Exam: Mucous Membranes Moist - Respiratory Respiratory Exam: Breathing Non Labored, Decreased Breath Sounds, Coarse Breath Sounds - Cardiovascular Cardiovascular Exam: RRR, No Murmur, No Clicks, No Gallops, No Rubs, No JVD - GI/Abdominal GI/Abdominal Exam: Normal Bowel Sounds, Non Tender, Non Distended, Soft - Extremities Extremities Exam: No Edema Present, No Cyanosis Present, Clubbing Present - Neurological Neurological Exam: Alert, Oriented x 3, No Facial Droop, Speech Intact / Clear, Moves All Extremities Equally Assessment and Plan - Patient Problems (1) Pneumonia Current Visit: Yes Status: Acute Code(s): J18.9 - Pneumonia, unspecified organism Qualifiers: Pneumonia type: due to unspecified organism Laterality: right Lung location: lower lobe of lung Qualified Code(s): J18.1 - Lobar pneumonia, unspecified organism (2) COPD Current Visit: Yes Status: Chronic (3) Abdominal aortic aneurysm 35 to 39 mm in diameter Current Visit: Yes Status: Chronic Code(s): I71.4 - Abdominal aortic aneurysm, without rupture (4) Cardiomyopathy, ischemic Current Visit: Yes Status: Chronic Onset Date: 07/26/14 Code(s): I25.5 - Ischemic cardiomyopathy (5) Coronary artery disease Current Visit: Yes Status: Chronic Qualifiers: Coronary Disease-Associated Artery/Lesion type: [place] artery [place] vs. transplanted heart: [place] heart Associated angina: without angina Qualified Code(s): I25.10 - Atherosclerotic heart disease of [place] coronary artery without angina pectoris (6) Peripheral vascular disease Current Visit: Yes Status: Chronic (7) Weight loss Current Visit: Yes Status: Acute Code(s): R63.4 - Abnormal weight loss - Assessment / Plan Additional Assessment/Plan Details: Overall, I think the patient is somewhat clinically better. I would like to try to continue him on his home oxygen regimen of around 6-7 L. I expect that he will desaturate continuously with activities. He is not short of breath at rest now which is a change from admission. I think expanding antibiotic coverage for additional pseudomonal coverage was helpful. The trough on the vancomycin was noted and I think we can run a lower trough. I'll calculate the dates and put in and dates on the MAR Continue antibiotics for a total of 7 days and then after that patient will likely discharge home as he does not want hospice at this time. Over the next couple of days of like to increase the patient's activities and get therapy involved for weakness and deconditioning I spoke with the patient's daughter and she agrees with the plan.
[2018-03-03] MEDS: traMADol 50 MG TABLET PO PRN (20:26)
[2018-03-03] MEDS: ACETAMINOPHEN 500 MG TABLET PO PRN (20:27)
[2018-03-04] MEDS ORDERED: PNEUMOCOCCAL 23 VACCINE 25 MCG/0.5 ML VIAL IM ONE
[2018-03-04] MEDS: ACETAMINOPHEN 500 MG TABLET PO PRN ×2 (00:21→22:01)
[2018-03-04] MEDS: traMADol 50 MG TABLET PO PRN ×3 (00:21→22:00)
[2018-03-04] MEDS: Cefepime Inj 2 GM in Sodium Chloride 0.9% 100 ML IV SCH ×3 (04:53→21:12)
[2018-03-04] MEDS: IPRATROPIUM/ALBUTEROL SULFATE 3 ML NEB NEB SCH ×4 (06:31→18:35)
[2018-03-04] MEDS: ASPIRIN 325 MG TABLET PO SCH (08:17)
[2018-03-04] MEDS: ENOXAPARIN SODIUM 30 MG/0.3 ML SYRINGE SUBCUT SCH (08:17)
[2018-03-04] MEDS: TAMSULOSIN 0.4 MG CAPSULE PO SCH (08:18)
[2018-03-04] MEDS: CHOLECALCIFEROL 1000 IU TABLET PO SCH (08:18)
[2018-03-04] MEDS: Oxybutynin ER Tab 5 MG TAB PO SCH (08:18)
[2018-03-04] MEDS: DOCUSATE 100 MG CAPSULE PO SCH ×2 (08:18→21:10)
[2018-03-04] MEDS: ESCITALOPRAM 10 MG TABLET PO SCH (08:18)
[2018-03-04] MEDS: ASCORBIC ACID Chewable 500 MG TABLET PO SCH (08:18)
[2018-03-04] MEDS: ROFLUMILAST 500 MCG PO SCH (08:21)
--- NOTE | 2018-03-04 09:31 | PT.PROG ---
Progress Note Progress Note: Pt reports he doesnt wish to participate in PT today. was sore from yesterday and in pain. PT encouraged pt to participate in activity but pt refused despite maximal attempts.
[2018-03-04 10:02] LABS: BASOPHILS # (AUTO) 0.02 10*3/UL; BASOPHILS % (AUTO) 0.2 % (0-1); EOSINOPHILS # (AUTO) 0.22 10*3/UL; EOSINOPHILS % (AUTO) 2.6 % (0-8); Hematocrit [HCT] 40.2 % (42.0-52.0); Hemoglobin [HGB] 12.6 g/dL (14.0-18.0); LYMPHOCYTES # (AUTO) 1.31 10*3/uL; MEAN CORPUSCULAR HEMOGLOBIN 28.4 PG (27-31); MEAN CORPUSCULAR HGB CONC 31.3 g/dL (33-37); MEAN CORPUSCULAR VOLUME 90.7 FL (80-90); MEAN PLATELET VOLUME 10.5 FL (7.4-12.2); MONOCYTES # (AUTO) 0.75 10*3/UL (0.3-0.8); MONOCYTES % (AUTO) 8.8 % (5-15); NEUTROPHILS % (AUTO) 72.8 % (50-80); PLATELET MORPHOLOGY COMMENT NORMAL MORPHOLOGY (NORM); RBC MORPHOLOGY COMMENT NORMAL MORPHOLOGY (NORM); RED BLOOD COUNT 4.43 10^6/uL (4.70-6.10); WBC MORPHOLOGY COMMENT NORMAL MORPHOLOGY (NORM)
[2018-03-04] MEDS: BREO ELLIPTA INH SCH (10:51)
--- NOTE | 2018-03-04 15:08 | PDOC(PROG) ---
Date and Time of Service: 03/04/2018, 1503 Interval History: patient seen, evaluated earlier. having some left sided pleuritic pain feels a little more short of breath today hard for patient to urinate Objective : Data - Labs CBC and BMP: 03/04/18 09:45 03/03/18 05:19 Objective : Exam - General General Appearance: No Acute Distress, Cooperative Additional General Exam Details: Vital Signs - Last Taken Temperature 97.4 F 03/04/18 11:22 Pulse Rate 97 03/04/18 14:40 Respiratory Rate 20 03/04/18 14:40 Blood Pressure 99/54 03/04/18 11:22 Pulse Ox 96 03/04/18 14:39 - Eye Eye Exam: No Scleral Icterus - ENT ENT Exam: Mucous Membranes Moist - Respiratory Respiratory Exam: Breathing Non Labored, Decreased Breath Sounds, Coarse Breath Sounds - Cardiovascular Cardiovascular Exam: RRR, No Murmur, No Clicks, No Gallops, No Rubs, No JVD - GI/Abdominal GI/Abdominal Exam: Normal Bowel Sounds, Non Tender, Non Distended, Soft - Extremities Extremities Exam: No Edema Present, No Cyanosis Present, Clubbing Present - Neurological Neurological Exam: Alert, Oriented x 3, No Facial Droop, Speech Intact / Clear, Moves All Extremities Equally Assessment and Plan - Patient Problems (1) Pneumonia Current Visit: Yes Status: Acute Code(s): J18.9 - Pneumonia, unspecified organism Qualifiers: Pneumonia type: due to unspecified organism Laterality: right Lung location: lower lobe of lung Qualified Code(s): J18.1 - Lobar pneumonia, unspecified organism (2) COPD Current Visit: Yes Status: Chronic (3) Abdominal aortic aneurysm 35 to 39 mm in diameter Current Visit: Yes Status: Chronic Code(s): I71.4 - Abdominal aortic aneurysm, without rupture (4) Cardiomyopathy, ischemic Current Visit: Yes Status: Chronic Onset Date: 07/26/14 Code(s): I25.5 - Ischemic cardiomyopathy (5) Coronary artery disease Current Visit: Yes Status: Chronic Qualifiers: Coronary Disease-Associated Artery/Lesion type: [place] artery [place] vs. transplanted heart: [place] heart Associated angina: without angina Qualified Code(s): I25.10 - Atherosclerotic heart disease of [place] coronary artery without angina pectoris (6) Peripheral vascular disease Current Visit: Yes Status: Chronic (7) Weight loss Current Visit: Yes Status: Acute Code(s): R63.4 - Abnormal weight loss - Assessment / Plan Additional Assessment/Plan Details: on antibiotics, cefepime and vanco. day #3. WBC normal will write for toradol for pleuritic pain oxygen at 6-10 LPM, close to home baseline stop ditropan. may be causing urinary retention with underlying BPH. had been using it to help with bladder spasm with sancehz. bladder scan and straight cath if necessary. continue IV antibiotics to complete 7 day course, then likely discharge home; PT and OT to try to strengthen a bit before going home. skilled nursing prognosis is still very poor with end stage COPD
[2018-03-04] MEDS: KETOROLAC 15 MG/1 ML VIAL IVP PRN (16:58)
[2018-03-04] MEDS ORDERED: PNEUMOCOCCAL 23 VACCINE 25 MCG/0.5 ML VIAL ONE (22:22)
[2018-03-05] MEDS: KETOROLAC 15 MG/1 ML VIAL IVP PRN (04:26)
[2018-03-05] MEDS: Cefepime Inj 2 GM in Sodium Chloride 0.9% 100 ML IV SCH ×3 (04:29→20:35)
[2018-03-05 04:54] LABS: BASOPHILS # (AUTO) 0.03 10*3/UL; BASOPHILS % (AUTO) 0.4 % (0-1); EOSINOPHILS # (AUTO) 0.42 10*3/UL; EOSINOPHILS % (AUTO) 5.6 % (0-8); Hematocrit [HCT] 37.4 % (42.0-52.0); Hemoglobin [HGB] 11.7 g/dL (14.0-18.0); LYMPHOCYTES # (AUTO) 1.18 10*3/uL; MEAN CORPUSCULAR HEMOGLOBIN 28.4 PG (27-31); MEAN CORPUSCULAR HGB CONC 31.3 g/dL (33-37); MEAN CORPUSCULAR VOLUME 90.8 FL (80-90); MEAN PLATELET VOLUME 10.8 FL (7.4-12.2); MONOCYTES # (AUTO) 0.87 10*3/UL (0.3-0.8); MONOCYTES % (AUTO) 11.5 % (5-15); NEUTROPHILS # (AUTO) 5.01 10*3/UL; NEUTROPHILS % (AUTO) 66.4 % (50-80); RED BLOOD COUNT 4.12 10^6/uL (4.70-6.10)
[2018-03-05 04:55] LABS: PLATELET MORPHOLOGY COMMENT NORMAL MORPHOLOGY (NORM); RBC MORPHOLOGY COMMENT NORMAL MORPHOLOGY (NORM); WBC MORPHOLOGY COMMENT NORMAL MORPHOLOGY (NORM)
[2018-03-05] MEDS: IPRATROPIUM/ALBUTEROL SULFATE 3 ML NEB NEB SCH ×4 (06:18→18:41)
--- NOTE | 2018-03-05 08:18 | PDOC(PROG) ---
Date and Time of Service: 03/05/2018 8:15 AM Interval History: Subjective Patient still feels short of breath. He is limited in what he is able to do because of shortness of breath. He said he lives alone there is a friend that help him with shopping. He is on 6 L at home nasal cannula. He came in because of shortness of breath and cough and was found to have pneumonia. Currently he is on 10 L of oxygen. Objective : Data - Labs CBC and BMP: 03/05/18 04:22 03/03/18 05:19 Objective : Exam - General General Appearance: No Acute Distress, Cooperative, Thin - Head Head Exam: Normal Inspection, Atraumatic - Eye Eye Exam: Normal Appearance - Neck Neck Exam: Normal Inspection - Respiratory Additional Respiratory Exam Details: Very poor air entry otherwise clear - Cardiovascular Cardiovascular Exam: RRR - GI/Abdominal GI/Abdominal Exam: Normal Bowel Sounds, Non Tender, Non Distended, Soft, No Organomegaly - Rectal Rectal Exam: Deferred - External Exam: Deferred - Extremities Extremities Exam: Normal Inspection - Back Back Exam: Normal Inspection - Neurological Neurological Exam: Alert, Oriented x 3, CN II-XII Intact, Speech Intact / Clear , Moves All Extremities Equally - Psychiatric Psychiatric Exam: Normal Affect - Integumentary Integumentary Exam: Normal Color Assessment and Plan - Patient Problems (1) Pneumonia Current Visit: Yes Status: Acute Comment: Continue current antibiotics with vancomycin and cefepime. I think we will try to increase the prednisone and see whether that would make a difference to his symptoms. Code(s): J18.9 - Pneumonia, unspecified organism Qualifiers: Pneumonia type: due to unspecified organism Laterality: right Lung location: lower lobe of lung Qualified Code(s): J18.1 - Lobar pneumonia, unspecified organism (2) Abdominal aortic aneurysm 35 to 39 mm in diameter Current Visit: Yes Status: Chronic Comment: This need follow-up as an outpatient Code(s): I71.4 - Abdominal aortic aneurysm, without rupture (3) COPD Current Visit: Yes Status: Chronic Comment: Advanced COPD, will Continue bronchodilator, antibiotics and will increase the dosage of the prednisone will see whether that can make a difference to his symptoms. (4) Coronary artery disease Current Visit: Yes Status: Chronic Comment: He is on aspirin continue Qualifiers: Coronary Disease-Associated Artery/Lesion type: [place] artery [place] vs. transplanted heart: [place] heart Associated angina: without angina Qualified Code(s): I25.10 - Atherosclerotic heart disease of [place] coronary artery without angina pectoris (5) Cardiomyopathy, ischemic Current Visit: Yes Status: Chronic Onset Date: 07/26/14 Comment: He is on amiodarone continue. Code(s): I25.5 - Ischemic cardiomyopathy
[2018-03-05] MEDS: ENOXAPARIN SODIUM 30 MG/0.3 ML SYRINGE SUBCUT SCH (08:55)
[2018-03-05] MEDS: TAMSULOSIN 0.4 MG CAPSULE PO SCH (08:57)
[2018-03-05] MEDS: predniSONE Tab 10 MG TAB PO SCH (08:57)
[2018-03-05] MEDS: CHOLECALCIFEROL 1000 IU TABLET PO SCH (08:57)
[2018-03-05] MEDS: ASPIRIN 325 MG TABLET PO SCH (08:57)
[2018-03-05] MEDS: ASCORBIC ACID Chewable 500 MG TABLET PO SCH (08:57)
[2018-03-05] MEDS: ESCITALOPRAM 10 MG TABLET PO SCH (08:57)
[2018-03-05] MEDS: DOCUSATE 100 MG CAPSULE PO SCH ×2 (08:57→20:35)
[2018-03-05] MEDS: AMIODARONE 200 MG TABLET PO SCH (09:04)
[2018-03-05] MEDS: traMADol 50 MG TABLET PO PRN ×3 (09:04→20:45)
--- NOTE | 2018-03-05 10:12 | OT.PROG ---
Progress Note Progress Note: S: pt refused therapy today, stating that he was extremely tired and overall not feeling well.
[2018-03-05] MEDS: BREO ELLIPTA INH SCH (10:17)
[2018-03-05] MEDS: ROFLUMILAST 500 MCG PO SCH (10:52)
[2018-03-05] MEDS: ACETAMINOPHEN 500 MG TABLET PO PRN (20:45)
[2018-03-06] MEDS: traMADol 50 MG TABLET PO PRN ×3 (01:20→20:55)
[2018-03-06 04:26] LABS: Hematocrit [HCT] 37.1 % (42.0-52.0); Hemoglobin [HGB] 11.6 g/dL (14.0-18.0); MEAN CORPUSCULAR HGB CONC 31.3 g/dL (33-37); MEAN CORPUSCULAR VOLUME 89.4 FL (80-90); MEAN PLATELET VOLUME 10.7 FL (7.4-12.2); RED BLOOD COUNT 4.15 10^6/uL (4.70-6.10)
[2018-03-06] MEDS ORDERED: CEFEPIME 2 GM VIAL ONE (04:27)
[2018-03-06] MEDS ORDERED: Sodium Chloride 0.9% 100 ML IV ONE (04:29)
[2018-03-06 04:35] LABS: BLOOD UREA NITROGEN 22 mg/dL (7-22); BUN/CREATININE RATIO 36.66 (6-20)
[2018-03-06] MEDS: Cefepime Inj 2 GM in Sodium Chloride 0.9% 100 ML IV SCH ×3 (04:36→20:33)
[2018-03-06 04:37] LABS: BAND NEUTROPHILS % 0 % (0-10); NEUTROPHILS % (MANUAL) 77 % (50-80); PLATELET MORPHOLOGY COMMENT NORMAL MORPHOLOGY (NORM); RBC MORPHOLOGY COMMENT NORMAL MORPHOLOGY (NORM); WBC MORPHOLOGY COMMENT NORMAL MORPHOLOGY (NORM)
[2018-03-06 04:38] LABS: BASOPHILS % (MANUAL) 0 % (0-1); EOSINOPHILS % (MANUAL) 2 % (0-8); MONOCYTES % (MANUAL) 4 % (0-12)
[2018-03-06] MEDS: IPRATROPIUM/ALBUTEROL SULFATE 3 ML NEB NEB SCH ×4 (07:24→19:00)
[2018-03-06] MEDS: PANTOPRAZOLE 40 MG TABLET PO SCH (08:01)
--- NOTE | 2018-03-06 08:09 | PDOC(PROG) ---
Date and Time of Service: 03/06/2018 8 AM Interval History: Subjective He still short of breath. He is still limited in what he is able to do. The cough may be improved. He thinks maybe there is some improvement compared to when he came in. He still on 10 L of oxygen though Objective : Data - Labs CBC and BMP: 03/06/18 04:20 03/06/18 04:20 Objective : Exam - General General Appearance: No Acute Distress, Cooperative, Thin - Head Head Exam: Normal Inspection - Eye Eye Exam: Normal Appearance - ENT ENT Exam: Normal Exam - Neck Neck Exam: Normal Inspection - Respiratory Additional Respiratory Exam Details: Very poor air entry but otherwise clear - Cardiovascular Cardiovascular Exam: RRR - GI/Abdominal GI/Abdominal Exam: Normal Bowel Sounds, Non Tender, Non Distended, Soft, No Organomegaly - Rectal Rectal Exam: Deferred - External Exam: Deferred Exam: Deferred - Extremities Extremities Exam: Normal Inspection - Back Back Exam: Normal Inspection - Neurological Neurological Exam: Alert, Oriented x 3, CN II-XII Intact, Speech Intact / Clear , Moves All Extremities Equally - Psychiatric Psychiatric Exam: Normal Affect Assessment and Plan - Patient Problems (1) Pneumonia Current Visit: Yes Status: Acute Comment: Continue current antibiotics. Code(s): J18.9 - Pneumonia, unspecified organism Qualifiers: Pneumonia type: due to unspecified organism Laterality: right Lung location: lower lobe of lung Qualified Code(s): J18.1 - Lobar pneumonia, unspecified organism (2) Abdominal aortic aneurysm 35 to 39 mm in diameter Current Visit: Yes Status: Chronic Comment: Need follow-up as an outpatient Code(s): I71.4 - Abdominal aortic aneurysm, without rupture (3) COPD Current Visit: Yes Status: Chronic Comment: Continue steroid, bronchodilator treatment. (4) Coronary artery disease Current Visit: Yes Status: Chronic Comment: Continue aspirin Qualifiers: Coronary Disease-Associated Artery/Lesion type: [place] artery [place] vs. transplanted heart: [place] heart Associated angina: without angina Qualified Code(s): I25.10 - Atherosclerotic heart disease of [place] coronary artery without angina pectoris (5) Cardiomyopathy, ischemic Current Visit: Yes Status: Chronic Onset Date: 07/26/14 Comment: He is on amiodarone Code(s): I25.5 - Ischemic cardiomyopathy
[2018-03-06] MEDS: ASPIRIN 325 MG TABLET PO SCH (08:43)
[2018-03-06] MEDS: DOCUSATE 100 MG CAPSULE PO SCH ×2 (08:44→20:33)
[2018-03-06] MEDS: predniSONE Tab 10 MG TAB PO SCH (08:44)
[2018-03-06] MEDS: CHOLECALCIFEROL 1000 IU TABLET PO SCH (08:44)
[2018-03-06] MEDS: TAMSULOSIN 0.4 MG CAPSULE PO SCH (08:44)
[2018-03-06] MEDS: ESCITALOPRAM 10 MG TABLET PO SCH (08:44)
[2018-03-06] MEDS: ASCORBIC ACID Chewable 500 MG TABLET PO SCH (08:44)
[2018-03-06] MEDS: ENOXAPARIN SODIUM 30 MG/0.3 ML SYRINGE SUBCUT SCH (08:45)
[2018-03-06] MEDS: ROFLUMILAST 500 MCG PO SCH (10:06)
[2018-03-06] MEDS: BREO ELLIPTA INH SCH (10:06)
--- NOTE | 2018-03-06 10:34 | PT.PROG ---
Progress Note Progress Note: S: Notified nurses of treatment session. Subject states he is unable to walk without loosing his breath. Pt. states at 87% O2 stats he feels pretty good. Pt. expressed that he wants to return home. O: Pt. supine in hospital bed at beginning of session on 10 L of supplemental O2. Pt. SOB with speech. Pt. stands for 30 seconds to be weighed. O2 sats drop to 56%. Pt. O2 increased by nurse and instructed to take slow deep breaths in through his nose and out through his mouth. Pt. returns to supine in hospital bed. Pt. instructed with cough technique. Sputum was cleared. O2 stats increased to 92%. Pt. agreed to do seated exercises. Upper trap squeezes x10 with yellow band, bilateral arm curls x10 with yellow band, Bilateral SLR x10, bilateral abduction adduction x10, bilateral heal slides x10. Instructed with cough and sputum was cleared. Pt. left supine HOB at 60 degrees with towel roll along spine bed alarm on, call light in reach and supplemental O2 at 10L. A: Pt. is a 78 year old male with COPD. He has low respiratory reserve and low tolerance to activates do to his SOB and low O2 saturation levels. P: Pt. to be seen this afternoon with OT.
--- NOTE | 2018-03-06 15:11 | PTI REPORT ---
Thank you for the referral of Maverick Olson. He was seen on 03/03/18 for an inpatient evaluation secondary to COPD. SUBJECTIVE: The patient is a 78-year-old male with severe COPD. The patient reports he gets short of breath easily and thinks he is going "downhill fast". The patient reports he lives alone in [place] in a one story home with a basement. The patient states there is a ramp to enter the home and he has no need to access basement. The patient reports he has not drank or smoked in the last three months. His daughter visits occasionally and he state he has many close friends in [place] that live nearby. The patient reports he has had increasing difficulty walking and performing ADLs due to shortness of breath. PAST MEDICAL HISTORY: Past medical history can be found in the patient's medical record. OBJECTIVE FINDINGS: General observations: The patient is alert and oriented. He is currently on 6 liters of oxygen. Bed mobility: The patient is independent with bed mobility; however, his oxygen saturation dropped below 80% with supine to edge of bed transfer. Transfers: The patient transferred from sit to stand with stand by assist x1. Strength: The patient's strength was within normal limits for lower extremities. Balance: The patient demonstrated no sway in standing balance. Oxygen saturation: In standing, the patient's O2 levels dropped to 72%. The patient was instructed to breathe deeply in through nose and out of mouth and O2 level reached around 80%. ASSESSMENT: The patient presents with difficulty transferring and walking due to shortness of breath caused by COPD. Short-Term Goals: To be met by discharge from inpatient: Patient will demonstrate proper breathing techniques without verbal cueing to keep O2 levels above 80% with activity. Long-Term Goals: To be met following discharge from inpatient: Patient will be able to ambulate to bathroom without onset of shortness of breath to increase independence with ADLs. TREATMENT PLAN: Patient will be seen B.I.D during the week and one time per day over the weekend as an inpatient for transfers, ambulation, and breathing techniques to increase independence with ADLs. INITIAL TREATMENT: Treatment today consisted of the initial evaluation followed by sit to stand transfers. The patient was left supine in bed with call light within reach and bed alarm set. Dictated by: IMAN Ledesma Supervised by: CHRISSY Flores
--- NOTE | 2018-03-06 15:30 | OTI REPORT ---
Thank you for the referral of Maverick Olson. He was seen on 03/03/18 for an occupational therapy inpatient evaluation secondary to COPD. SUBJECTIVE: The patient is a 78-year-old male who came in with low oxygen saturation at home and his daughter was very worried. His daughter reports that he was down into the 50s and he is usually in the high 80s/low 90s on his 6 liters of oxygen. The patient reports he does live alone in [place] and that his daughter lives in [place] and checks on him every once in a while. He reports he completes dressing independently, but he does make sure someone is in the home for a shower. The patient reports he does not use any equipment for ambulation. PAST MEDICAL HISTORY: Past medical history can be found in the patient's medical record. OBJECTIVE FINDINGS: General observations: The patient was in bed and on 6 liters of oxygen upon the therapist's arrival with oxygen saturation of 91%. Bed mobility: The patient was able to complete bed mobility independently. Once seated edge of bed, his oxygen saturation dropped down to 71%. Range of motion: The patient has good shoulder range of motion. Strength: The patient demonstrates 4-/5 for bilateral upper extremity strength. Endurance: The patient does become fatigued very quickly. Oxygen saturation: With energy conservation and breathing techniques, the patient was able to get his oxygen saturation up to 78%. Transfers: The patient was able to complete 5 sit to stands with contact guard assist only and his oxygen saturation dropped back down to 70%. ASSESSMENT: The patient may benefit from skilled therapy to increase his activity tolerance with daily tasks. Occupational Therapy Goals: To be met by discharge from inpatient: Patient will be independent with ADLs. Patient will be independent with upper extremity and lower extremity dressing within a 10-15 minutes period, demonstrating energy conservation techniques. Patient will be able to complete functional transfers to the bathroom independently using energy conservation techniques. TREATMENT PLAN: Patient will be seen B.I.D during the week and one time per day over the weekend as an inpatient to address the above goals and objectives. INITIAL TREATMENT: Treatment today consisted of the initial evaluation. After three minute recovery sitting edge of bed, although no progress was made with his oxygen saturation, he was then encouraged to lay back down in bed which he did independently. With 5 minutes recovery time, oxygen saturation trended upwards into the low 80s. The patient's bed alarm was put back on. FELI
[2018-03-06] MEDS: diphenhydrAMINE 25 MG CAPSULE PO PRN (20:54)
[2018-03-06] MEDS: ACETAMINOPHEN 500 MG TABLET PO PRN (20:55)
[2018-03-07] MEDS: Cefepime Inj 2 GM in Sodium Chloride 0.9% 100 ML IV SCH ×3 (05:20→20:56)
[2018-03-07] MEDS: PANTOPRAZOLE 40 MG TABLET PO SCH (06:42)
[2018-03-07] MEDS: IPRATROPIUM/ALBUTEROL SULFATE 3 ML NEB NEB SCH ×4 (06:50→19:20)
--- NOTE | 2018-03-07 08:10 | PDOC(PROG) ---
Date and Time of Service: 03/07/2018 8:06 AM Interval History: Subjective He feels the same. Maybe shortness of breath a little bit better. But he is still very short of breath with minimal exertion. Objective : Data - Labs CBC and BMP: 03/06/18 04:20 03/06/18 04:20 Objective : Exam - General General Appearance: No Acute Distress, Cooperative - Head Head Exam: Normal Inspection - Eye Eye Exam: Normal Appearance - ENT ENT Exam: Normal Exam - Neck Neck Exam: Normal Inspection - Respiratory Additional Respiratory Exam Details: Very poor air entry otherwise clear - Cardiovascular Cardiovascular Exam: RRR - GI/Abdominal GI/Abdominal Exam: Normal Bowel Sounds, Non Tender, Non Distended, Soft, No Organomegaly - Rectal Rectal Exam: Deferred - External Exam: Deferred Exam: Deferred - Extremities Extremities Exam: Normal Inspection - Back Back Exam: Normal Inspection - Neurological Neurological Exam: Alert, Oriented x 3, CN II-XII Intact, No Facial Droop, Speech Intact / Clear, Moves All Extremities Equally - Psychiatric Psychiatric Exam: Normal Affect - Integumentary Integumentary Exam: Normal Color Assessment and Plan - Patient Problems (1) Pneumonia Current Visit: Yes Status: Acute Comment: Continue current antibiotics. He'll be done with IV antibiotics tomorrow night. I did meet with the sister yesterday we talked after patient consent about where to go from here, he is very limited in what he is able to do still. His prognosis is poor so hospice is an option if he agrees to it or snf if he doesn't. I did ask the materials planner to talk to him yesterday. He still seem not to understand his situation so we'll have a meeting with the family this morning. Code(s): J18.9 - Pneumonia, unspecified organism Qualifiers: Pneumonia type: due to unspecified organism Laterality: right Lung location: lower lobe of lung Qualified Code(s): J18.1 - Lobar pneumonia, unspecified organism (2) Abdominal aortic aneurysm 35 to 39 mm in diameter Current Visit: Yes Status: Chronic Comment: Need follow-up later on as an outpatient Code(s): I71.4 - Abdominal aortic aneurysm, without rupture (3) COPD Current Visit: Yes Status: Chronic Comment: Continue steroid and antibiotic and bronchodilator. (4) Coronary artery disease Current Visit: Yes Status: Chronic Comment: Continue aspirin Qualifiers: Coronary Disease-Associated Artery/Lesion type: [place] artery [place] vs. transplanted heart: [place] heart Associated angina: without angina Qualified Code(s): I25.10 - Atherosclerotic heart disease of [place] coronary artery without angina pectoris (5) Cardiomyopathy, ischemic Current Visit: Yes Status: Chronic Onset Date: 07/26/14 Comment: Continue amiodarone. Code(s): I25.5 - Ischemic cardiomyopathy
[2018-03-07] MEDS: CHOLECALCIFEROL 1000 IU TABLET PO SCH ×2 (08:54→09:18)
[2018-03-07] MEDS: traMADol 50 MG TABLET PO PRN ×3 (08:54→20:14)
[2018-03-07] MEDS: ESCITALOPRAM 10 MG TABLET PO SCH (08:54)
[2018-03-07] MEDS: TAMSULOSIN 0.4 MG CAPSULE PO SCH (08:55)
[2018-03-07] MEDS: predniSONE Tab 10 MG TAB PO SCH (08:55)
[2018-03-07] MEDS: DOCUSATE 100 MG CAPSULE PO SCH ×2 (08:55→20:14)
[2018-03-07] MEDS: ASCORBIC ACID Chewable 500 MG TABLET PO SCH ×2 (08:56→09:18)
[2018-03-07] MEDS: ENOXAPARIN SODIUM 30 MG/0.3 ML SYRINGE SUBCUT SCH (08:56)
[2018-03-07] MEDS: ASPIRIN 325 MG TABLET PO SCH ×2 (08:56→09:19)
[2018-03-07] MEDS: AMIODARONE 200 MG TABLET PO SCH (08:56)
--- NOTE | 2018-03-07 08:56 | PT.PROG ---
Progress Note Progress Note: S: Pt stated he was feeling ok today. He refused PT and stated his family was coming to discuss hospice care. Jessica Rocha, SPT
[2018-03-07] MEDS: ROFLUMILAST 500 MCG PO SCH (09:19)
[2018-03-07] MEDS: BREO ELLIPTA INH SCH (09:19)
[2018-03-07] MEDS: ALBUTEROL SULFATE 2.5 MG/3 ML NEB PRN (13:18)
--- NOTE | 2018-03-07 17:16 | PT.PROG ---
Progress Note Progress Note: Nursing requested Patient not have therapy this afternoon due to low o2 saturation.
[2018-03-07] MEDS: diphenhydrAMINE 25 MG CAPSULE PO PRN (20:14)
[2018-03-07] MEDS: ACETAMINOPHEN 500 MG TABLET PO PRN (20:14)
[2018-03-08] MEDS: Cefepime Inj 2 GM in Sodium Chloride 0.9% 100 ML IV SCH ×3 (04:57→20:29)
[2018-03-08] MEDS: IPRATROPIUM/ALBUTEROL SULFATE 3 ML NEB NEB SCH ×4 (06:40→18:48)
[2018-03-08] MEDS: PANTOPRAZOLE 40 MG TABLET PO SCH (06:47)
--- NOTE | 2018-03-08 07:35 | PDOC(PROG) ---
Date and Time of Service: 03/08/2018 7:35 AM Interval History: Subjective Patient said he feels tired but otherwise denying new symptoms. He is still not doing much, just laying in bed. Seems like whenever he stands up his saturation drops. Yesterday we did meet with the daughter and sister and him, we talked about option once he is done with his IV treatment. He still wants to go home we offered them either hospice or [facility]. In the end we left lifted up to them to decide. He is telling me that his daughter talking to the transportation planner so he is not sure about the decision he is still talking about going home. He does not seem to understand that he needs help and he cannot manage at home the way he is right now. Objective : Data - Labs CBC and BMP: 03/06/18 04:20 03/06/18 04:20 Objective : Exam - General General Appearance: No Acute Distress, Cooperative - Head Head Exam: Normal Inspection - Eye Eye Exam: Normal Appearance - Neck Neck Exam: Normal Inspection - Respiratory Additional Respiratory Exam Details: Very poor air entry otherwise clear - Cardiovascular Cardiovascular Exam: RRR - GI/Abdominal GI/Abdominal Exam: Normal Bowel Sounds, Non Tender, Non Distended, Soft, No Organomegaly - Rectal Rectal Exam: Deferred - External Exam: Deferred - Extremities Extremities Exam: Normal Inspection - Back Back Exam: Normal Inspection - Neurological Neurological Exam: Alert, Oriented x 3, CN II-XII Intact, Speech Intact / Clear , Moves All Extremities Equally - Psychiatric Psychiatric Exam: Normal Affect Assessment and Plan - Patient Problems (1) Pneumonia Current Visit: Yes Status: Acute Comment: He'll be done with his IV antibiotic treatment tonight. Continue steroids for now. Continue bronchodilator. We'll talk to the transportation planner and see what the family decide. He's talking about going home tomorrow not sure this is feasible the way he is right now. Code(s): J18.9 - Pneumonia, unspecified organism Qualifiers: Pneumonia type: due to unspecified organism Laterality: right Lung location: lower lobe of lung Qualified Code(s): J18.1 - Lobar pneumonia, unspecified organism (2) Abdominal aortic aneurysm 35 to 39 mm in diameter Current Visit: Yes Status: Chronic Comment: This need follow-up as an outpatient Code(s): I71.4 - Abdominal aortic aneurysm, without rupture (3) COPD Current Visit: Yes Status: Chronic Comment: Continue steroid and bronchodilator treatment (4) Coronary artery disease Current Visit: Yes Status: Chronic Comment: Continue aspirin Qualifiers: Coronary Disease-Associated Artery/Lesion type: [place] artery [place] vs. transplanted heart: [place] heart Associated angina: without angina Qualified Code(s): I25.10 - Atherosclerotic heart disease of [place] coronary artery without angina pectoris (5) Cardiomyopathy, ischemic Current Visit: Yes Status: Chronic Onset Date: 07/26/14 Comment: Continue amiodarone. Code(s): I25.5 - Ischemic cardiomyopathy
[2018-03-08] MEDS: ESCITALOPRAM 10 MG TABLET PO SCH (08:49)
[2018-03-08] MEDS: TAMSULOSIN 0.4 MG CAPSULE PO SCH (08:49)
[2018-03-08] MEDS: traMADol 50 MG TABLET PO PRN ×3 (08:49→21:19)
[2018-03-08] MEDS: predniSONE Tab 10 MG TAB PO SCH (08:49)
[2018-03-08] MEDS: DOCUSATE 100 MG CAPSULE PO SCH ×2 (08:50→20:28)
[2018-03-08] MEDS: ENOXAPARIN SODIUM 30 MG/0.3 ML SYRINGE SUBCUT SCH (08:50)
[2018-03-08] MEDS: ROFLUMILAST 500 MCG PO SCH (08:53)
[2018-03-08] MEDS: ASCORBIC ACID Chewable 500 MG TABLET PO SCH (08:54)
[2018-03-08] MEDS: BREO ELLIPTA INH SCH (08:54)
[2018-03-08] MEDS: CHOLECALCIFEROL 1000 IU TABLET PO SCH (08:54)
[2018-03-08] MEDS: ASPIRIN 325 MG TABLET PO SCH (09:20)
[2018-03-08] MEDS: ALBUTEROL SULFATE 2.5 MG/3 ML NEB PRN (09:24)
--- NOTE | 2018-03-08 13:56 | PT.PROG ---
Progress Note Progress Note: Discussed with Dr. Ahmadi about patient not being appropriate for physical therapy due to refusals and o2 saturation.
[2018-03-08] MEDS: diphenhydrAMINE 25 MG CAPSULE PO PRN (21:19)
[2018-03-09] MEDS: IPRATROPIUM/ALBUTEROL SULFATE 3 ML NEB NEB SCH ×2 (06:26→10:45)
[2018-03-09] MEDS: BREO ELLIPTA INH SCH ×2 (06:27→08:58)
[2018-03-09] MEDS: PANTOPRAZOLE 40 MG TABLET PO SCH (06:45)
[2018-03-09 07:28] VITALS: TEMP 97
[2018-03-09] MEDS: ENOXAPARIN SODIUM 30 MG/0.3 ML SYRINGE SUBCUT SCH (08:17)
[2018-03-09] MEDS: ASPIRIN 325 MG TABLET PO SCH (08:17)
[2018-03-09] MEDS: AMIODARONE 200 MG TABLET PO SCH (08:17)
[2018-03-09] MEDS: ASCORBIC ACID Chewable 500 MG TABLET PO SCH (08:18)
[2018-03-09] MEDS: ESCITALOPRAM 10 MG TABLET PO SCH (08:18)
[2018-03-09] MEDS: DOCUSATE 100 MG CAPSULE PO SCH (08:18)
[2018-03-09] MEDS: TAMSULOSIN 0.4 MG CAPSULE PO SCH (08:18)
[2018-03-09] MEDS: CHOLECALCIFEROL 1000 IU TABLET PO SCH (08:18)
[2018-03-09] MEDS: ROFLUMILAST 500 MCG PO SCH (08:57)
[2018-03-09] MEDS: predniSONE Tab 10 MG TAB PO SCH (09:22)
--- NOTE | 2018-03-09 10:36 | DCSUMMARY ---
Hospitalization Summary Admit Date: 03/01/2018 Discharge Date: 03/09/18 Hospital Course: Discharge diagnoses 1. Right-sided pneumonia 2. End-stage COPD 3. Coronary artery disease with depressed ejection fraction status post stents in the past 4. History of cardiomyopathy status post AICD 5. History of depression 6. History of peripheral vascular disease abdominal aortic aneurysm 7. History of hypertension Hospital course This is a 78 years old male with medical history significant for history of hypertension, coronary artery disease with previous stents, ischemic cardiomyopathy and end-stage COPD who came into the hospital because of feeling poorly the last few days and also his oxygen saturation been dropping at home. Because of the worsening shortness of breath and the dropping of oxygen saturation he was brought to the hospital and was found to have right lower lobe pneumonia and was admitted to the hospital. He was admitted by Dr. Brunson please see his note. Patient initially was put on bronchodilator and started on Rocephin and Zithromax. Few days it after that because of no improvement he was switched to vancomycin and Zosyn. I saw him later on during hospital stay he was still the same I increased the dosage of his prednisone. we thought This may help with the healing process and may be improving her symptoms. However he remained needing 10 L of oxygen and minimal exertion would cause dropping of his oxygen and he did not do much just mainly laying in bed. We discussed with them hospice he was reluctant to the idea. After he finished the course of treatment for the pneumonia he remained at the same level I did talk to him that this is an advanced COPD and this is unfortunately likely terminal we did talk to him again about hospice he was still resistant to that idea. He wants to go home his daughter said so she will stay with him the next 2 weeks however she did talk to hospice in [place] and in case things deteriorate she probably she said we'll take him to [place] to hospice there. We discharged him on some prednisone I did write for pain medication he was complaining from some pain when he coughs or takes deep breath he is normally on tramadol we added hydrocodone to see whether that would help the symptoms. Discharge instruction Diet regular activity as started Medications Current Medication(s) 3 Medication Instructions Recorded Confirmed Type Atorvastatin Calcium [Lipitor] 40 mg PO BEDTIME #30 tab 08/18/16 05/22/17 Clinic Pantoprazole Sodium [Protonix] 40 mg PO BID #60 tab 08/18/16 05/22/17 Clinic Losartan Potassium 0.5 tab PO QD #45 tab 03/21/17 05/22/17 Clinic Albuterol/Ipratrop Neb Soln 3 ml NEB QID 05/22/17 03/01/18 History [Duoneb Neb Soln] Vitamin E 400 unit PO DAILY 05/22/17 05/22/17 History aspirin 325 mg tablet 650 mg PO QDAY tab 08/23/17 03/01/18 History cholecalciferol (vitamin D3) 1,000 2,000 unit PO QDAY cap 08/23/17 03/01/18 History unit capsule vitamin B12 500 mcg-folic acid 400 1 tab PO QDAY tab 08/23/17 03/01/18 History mcg tablet lidocaine 2 % mucosal solution 15 ml PO QID PRN #100 ml 09/21/17 03/01/18 Rx roflumilast 500 mcg tablet 500 mcg PO QDAY #90 tab 11/09/17 03/01/18 Rx escitalopram 10 mg tablet 10 mg PO QDAY #30 tab 11/10/17 03/01/18 Rx Levofloxacin [Levaquin] 500 mg PO DAILY #7 tab 12/17/17 03/01/18 Rx amiodarone 200 mg tablet 200 mg PO DIRECTED #15 tab 12/20/17 03/01/18 Rx tamsulosin 0.4 mg capsule 0.4 mg PO QDAY #30 cap 12/20/17 03/01/18 Rx doxycycline hyclate 100 mg capsule 100 mg PO BID #14 cap 01/10/18 03/01/18 Rx fluticasone 200 mcg-vilanterol 25 1 inh INH DAILY #6 Samples 01/11/18 03/01/18 Sample mcg/dose powder for inhalation tramadol 50 mg tablet 50 mg PO Q4H PRN #90 tab 02/10/18 03/01/18 Rx Hydrocodone/Acetaminophen 1 each PO Q4H PRN #25 tablet 03/09/18 Rx [Hydrocodon-Acetaminophen 5-325] Pantoprazole Sodium [Protonix] 40 mg PO AC BK #30 tab 03/09/18 Rx Prednisone 10 mg PO DAILY #90 tab 03/09/18 Rx diphenhydrAMINE HCl [Benadryl] 25 mg PO Q6H PRN cap 03/09/18 Rx Follow-up PCP in 1-2 weeks Condition at discharge stable for discharge but prognosis is poor Exam - Vitals Vital Signs: Vital Signs Temperature 97 F Temperature Source Temporal Artery Scan Pulse Rate [Pulse Oximeter] 54 Pulse Rate [Apical] 80 Pulse Rate [Pulse Oximeter 82 Bilateral Radial] Pulse Rate 75 Respiratory Rate 20 Blood Pressure [Left Arm] 126/63 Blood Pressure [Right Arm] 127/77 Blood Pressure 151/83 Pulse Ox 90 Oxygen Flow Rate 10 Oxygen Delivery Method Nasal Cannula Height 5 ft 8 in Weight 148 lb - General Additional General Exam Details: Was laying in bed does not appear in distress. - Head Head Exam: Normal Inspection - Eye Eye Exam: POSITIVE: Normal Appearance - ENT ENT Exam: POSITIVE: Normal Exam - Neck Neck Exam: Normal Inspection - Respiratory Additional Respiratory Exam Details: Very poor air entry otherwise clear - Cardiovascular Cardiovascular Exam: POSITIVE: RRR - GI/Abdominal GI/Abdominal Exam: POSITIVE: Normal Bowel Sounds, Non Tender, Non Distended, Soft, No Organomegaly - Rectal Rectal Exam: POSITIVE: Deferred - External Exam: POSITIVE: Deferred - Extremities Extremities Exam: POSITIVE: Normal Inspection - Back Back Exam: POSITIVE: Normal Inspection - Neurological Neurological Exam: POSITIVE: Alert, Oriented x 3, CN II-XII Intact - Psychiatric Psychiatric Exam: POSITIVE: Normal Affect Patient Problems - Patient Problem List (1) Pneumonia Current Visit: Yes Status: Acute Comment: Continue current antibiotics. Code(s): J18.9 - Pneumonia, unspecified organism Qualifiers: Pneumonia type: due to unspecified organism Laterality: right Lung location: lower lobe of lung Qualified Code(s): J18.1 - Lobar pneumonia, unspecified organism Category: Medical (2) Abdominal aortic aneurysm 35 to 39 mm in diameter Current Visit: Yes Status: Chronic Comment: Nonruptured. Code(s): I71.4 - Abdominal aortic aneurysm, without rupture Category: Medical (3) COPD Current Visit: Yes Status: Chronic Comment: See report of CT chest under [place] Category: Medical (4) Coronary artery disease Current Visit: Yes Status: Chronic Qualifiers: Coronary Disease-Associated Artery/Lesion type: [place] artery [place] vs. transplanted heart: [place] heart Associated angina: without angina Qualified Code(s): I25.10 - Atherosclerotic heart disease of [place] coronary artery without angina pectoris Category: Medical (5) Cardiomyopathy, ischemic Current Visit: Yes Status: Chronic Onset Date: 07/26/14 Code(s): I25.5 - Ischemic cardiomyopathy Category: Medical
[2018-03-09 11:48] VITALS: BP 118/58; RESP 21; O2SAT 90
== END 2018-03-09 15:25 | disposition home or self-care (01) | DRG 195 ==
LOC: ER 11:58 → MED/SURG 17:02
PROVIDERS: ADMIT Family Medicine; ATTEND Family Medicine